=== PATIENT | female | born 1935 | race Caucasian/White ===

== ENCOUNTER 2022-09-30 12:46 | Observation (INO) | payer MEDICARE, OTHER, SELFPAY ==
[2022-09-30] VITALS (22 sets, daily range): BP systolic 145–178; BP diastolic 60–75; PULSE 52–66; RESP 4–22; TEMP 36.3–36.4; O2SAT 95–100; BMI 45.6; BMI 51.0
--- NOTE | 2022-09-30 13:17 | PC.NURSE ---
pt states has had issues with indigestion in the past and states this could be from that but unsure. States she has been under a lot of stress lately and thinks this caused the pain.
--- NOTE | 2022-09-30 13:47 | XR_ITS ---
[facility] [place] [id number] Patient Name: JAVI LEONARDO MRN: [id number] date: 1935 Sex: F Assigned Patient Location: ER Current Patient Location: ER Accession/Order Number: [id number] Exam Date: 09/30/2022 13:56 Report Date: 09/30/2022 14:12 At the request of: WILLI KIM Procedure: XR chest 1V XR chest 1V, 09/30/2022 1:56 PM EDT, OH001 INDICATION: chest pain COMPARISON: None TECHNIQUE: Frontal view of the chest obtained. FINDINGS: The heart is normal in size. The aorta and mediastinum appear unremarkable. The pulmonary vasculature is normal. The lungs are clear. There is no evidence of pneumothorax or pleural effusion. The osseous structures appear intact. XR/XR chest 1V IMPRESSION: No active pulmonary process. Electronically authenticated by: VU PADRON Date: 09/30/2022 14:12
--- NOTE | 2022-09-30 14:03 | ED_ITS ---
Documented by User: LATHA Wolf 09/30/22 16:18 HPI - Chest Pain General Chief Complaint: Chest Pain Stated Complaint: CHEST PAIN Time Seen by Provider: 09/30/22 13:35 Source: patient Mode of arrival: Wheelchair Limitations: no limitations History of Present Illness HPI narrative: patient is a 87-year-old female presents to the Emergency Room with concerns of chest pain. Patient has pertinent history of cardiac stent in two thousand nine and two thousand twelve. Patient does not recall her symptoms at that time as her had . Patient also has a [place] filter. She has a history of chronic lower leg edema and obesity. Patient states for the past 2-3 months she has had episodes of chest pressure heaviness going into her neck and jaw and right arm. Accompanied by nausea but no diaphoresis. Patient notes symptoms today started around eleven and started to improve about a half hour later. Symptoms come on at rest. She denies any vomiting or diarrhea. Patient notes she feels slightly short of breath with exertion. Patient speaking in full sentences and appears in no distress at bedside. She notes she did have a follow-up scheduled with her serology teacher but did not want to wait with symptoms becoming more frequent. MD complaint: Reports chest pain and chest heaviness Pertinent past history: Reports prior [place] Timing of current episode: Reports episodic Prior episodes: Yes Onset: Reports during rest Pain location: Reports right chest Pain radiation: Reports right arm and neck Quality: Reports heaviness and other (pressure) Relieving factors: Reports nothing Exacerbating factors: Reports nothing Associated symptoms: Reports nausea, dyspnea and leg swelling (chronic); Denies vomiting, diaphoresis, sense of impending doom or palpitations Treatment prior to arrival: Reports aspirin (81 mg) Related Data Allergies Allergy/AdvReac Type Severity Reaction Status Date / Time oxaprozin [From Daypro] Allergy Intermediate Verified 09/30/22 12:58 sertraline [From Zoloft] Allergy Intermediate Verified 09/30/22 12:58 Review of Systems ROS Constitutional Denies: fever or chills Ears, nose, mouth, and throat Denies: throat pain or neck pain Cardiovascular Reports: chest pain; Denies: palpitations Respiratory Reports: shortness of breath; Denies: cough Gastrointestinal Reports: nausea; Denies: abdominal pain or excessive passing of gas Genitourinary Denies: painful urination Musculoskeletal Reports: back pain Integumentary/Breast Denies: rash Neurological Denies: headache Psychiatric Denies: anxiety or mood swings Endocrine Denies: excessive urination Hematologic/Lymphatic Reports: other (chronic lymphadenopathy in the lower legs) Exam Narrative Exam Narrative: Nurses notes and vital signs reviewed and patient is not hypoxic. General: The patient appears well and in no apparent distress. Patient is resting comfortably on cart.speaking in full sentences Skin: Warm, dry, no pallor noted. Head: Normocephalic, atraumatic Neck: Supple, trachea mid-line, no tenderness, no lymphadenopathy Eye: Pupils are equal, round and reactive to light, EOMI Ears, Nose, Mouth, and Throat: TM are clear, normal light reflex, oral mucosa is moist, no posterior oropharynx erythema or hypertrophy, uvula is mid-line Cardiovascular: Regular Rate and Rhythm Respiratory: Patient is in no distress, no accessory muscle use, lungs are clear to auscultation, no wheezing, rales or rhonchi. Chest Wall: no tenderness, no. Pain Back: non-tender, no CVA tenderness Musculoskeletal: normal ROM, chronic lymphedematous changes in the lower legs. GI: Normal bowel sounds, no tenderness to palpation, no masses appreciated. No rebound, guarding, or rigidity noted. Neurological: A&O x4 Psychiatric: Cooperative Constitutional Vital Signs, click to edit/add: Last Vital Signs Temp 97.4 F L 09/30/22 12:50 Pulse 54 L 09/30/22 15:30 Resp 17 09/30/22 15:30 BP 178/60 H 09/30/22 15:00 Pulse Ox 100 09/30/22 15:30 O2 Del Method Room Air 09/30/22 12:50 Course Vital Signs Vital signs: Vital Signs Temperature 97.4 F L 09/30/22 12:50 Pulse Rate 65 09/30/22 12:50 Respiratory Rate 16 09/30/22 12:50 Blood Pressure 154/75 H 09/30/22 12:50 Pulse Oximetry 100 09/30/22 12:50 Oxygen Delivery Method Room Air 09/30/22 12:50 Temperature 97.4 F L 09/30/22 12:50 Pulse Rate 54 L 09/30/22 15:30 Respiratory Rate 17 09/30/22 15:30 Blood Pressure 178/60 H 09/30/22 15:00 Pulse Oximetry 100 09/30/22 15:30 Oxygen Delivery Method Room Air 09/30/22 12:50 MDM - Chest Pain MDM Narrative Medical decision making narrative: patient presents with concerning history for cardiac etiology. EKG reviewed, I did speak with LETY Tavera upon patient's arrival for potential disposition given going into a weekend. She recommends trending troponins and transferring if anything is abnormal. She was able to review her immediate cardiac history. I asked appointment with Dr. Arora in June of this year. Patient medicated with aspirin 162 mg by mouth, Nitropaste. patient notes heaviness sensation and pressure in her chest is improved with nitroglycerin paste. She appears in no distress. Her repeat troponin was also within normal limits. Discussed case with Dr. Goel at 4 PM who is agreeable to admit the patient as long as her 2nd troponin was negative. Patient will be admitted to telemetry observation stepdown, she did have one episode of bradycardia in the forty-eight but has been in the mid 50s at rest. Patient stable at this time but with concerning symptoms. Lab Data Labs: Lab Results 09/30/22 09/30/22 Range/Units 13:55 15:47 WBC 5.8 (4.0-11.0) 10^3/uL RBC 3.59 L (4.20-5.40) 10^6/uL Hgb 11.3 L (12.0-16.0) g/dL Hct 35.2 L (36.0-48.0) % MCV 98.1 (81.0-99.0) fL MCH 31.5 (26.7-34.0) pg MCHC 32.1 (29.9-35.2) g/dL RDW 12.7 (11.0-15.0) % Plt Count 171 (150-450) 10^3/uL MPV 10.4 (9.5-13.5) fL Neut % (Auto) 60.7 (43.0-75.0) % Lymph % (Auto) 27.7 (20.5-60.0) % [facility] % (Auto) 8.8 (1.7-12.0) % Eos % (Auto) 2.1 (0.9-7.0) % Baso % (Auto) 0.5 (0.2-2.0) % Neut # (Auto) 3.5 (1.4-6.5) 10^3/uL Lymph # (Auto) 1.6 (1.2-3.8) 10^3/uL [facility] # (Auto) 0.5 (0.3-0.8) 10^3/uL Eos # (Auto) 0.1 (0.0-0.7) 10^3/uL Baso # (Auto) 0.0 (0.0-0.1) 10^3/uL Abs Immat Gran (auto) 0.01 (0.00-0.03) 10^3/uL Imm/Tot Granulo (auto) 0.2 (0.0-0.5) % PT 10.3 (9.0-11.6) sec INR 0.97 APTT 27.8 (22.3-36.2) sec Sodium 132 L (136-145) mmol/L Potassium 4.9 (3.5-5.1) mmol/L Chloride 101 (98-107) mmol/L Carbon Dioxide 29.5 (21.0-32.0) mmol/L Anion Gap 6.4 BUN 26.0 H (7.0-18.0) mg/dL Creatinine 1.36 H (0.55-1.02) mg/dL Est GFR ( Amer) 45 L (>=60) Est GFR (Non-Af Amer) 37 L (>=60) BUN/Creatinine Ratio 19.1 Glucose 107 H (74-106) mg/dL Calcium 8.7 (8.5-10.1) mg/dL Total Bilirubin 0.5 (0.2-1.0) mg/dL AST 14 L (15-37) U/L ALT 10 L (14-59) U/L Alkaline Phosphatase 68 (46-116) U/L Troponin I High Sens 11.7 11.1 (4.0-51.3) pg/mL NT-Pro-B Natriuret Pep 547.0 (<=1800.0) pg/mL Total Protein 6.4 (6.4-8.2) g/dL Albumin 3.5 (3.4-5.0) g/dL Globulin 2.9 g/dL Albumin/Globulin Ratio 1.2 Lipase 15.0 L (73.0-393.0) U/L Imaging Data Chest x-ray: Radiologist's impression: Procedure: XR chest 1V XR chest 1V, 09/30/2022 1:56 PM EDT, [facility]001 INDICATION: chest pain COMPARISON: None TECHNIQUE: Frontal view of the chest obtained. FINDINGS: The heart is normal in size. The aorta and mediastinum appear unremarkable. The pulmonary vasculature is normal. The lungs are clear. There is no evidence of pneumothorax or pleural effusion. The osseous structures appear intact. IMPRESSION: No active pulmonary process. Electronically authenticated by: VU PADRON Date: 09/30/2022 14:12 ECG Data Attestation: I personally reviewed and interpreted this ECG as follows: Interpretation: EKG interpretation: Emergency Department physician interpretation, 1st degree av block 62 bpm, normal sinus rhythm,+ RBBB, no ST segment elevation. Discharge Plan Discharge Chief Complaint: Chest Pain Clinical Impression: Chest pain Patient Disposition: Admitted as Observation Time of Disposition Decision: 16:18 Condition: Good Discharge Date/Time: 09/30/22 17:21 Documented by User: Tali Mancera MD 09/30/22 17:46 HPI - Chest Pain General Chief Complaint: Chest Pain Stated Complaint: CHEST PAIN Time Seen by Provider: 09/30/22 13:35 Related Data Allergies Allergy/AdvReac Type Severity Reaction Status Date / Time oxaprozin [From Daypro] Allergy Intermediate Verified 09/30/22 12:58 sertraline [From Zoloft] Allergy Intermediate Verified 09/30/22 12:58 Exam Constitutional Vital Signs, click to edit/add: Last Vital Signs Temp 97.4 F L 09/30/22 12:50 Pulse 54 L 09/30/22 15:30 Resp 17 09/30/22 15:30 BP 178/60 H 09/30/22 15:00 Pulse Ox 100 09/30/22 15:30 O2 Del Method Room Air 09/30/22 12:50 Course Vital Signs Vital signs: Vital Signs Temperature 97.4 F L 09/30/22 12:50 Pulse Rate 65 09/30/22 12:50 Respiratory Rate 16 09/30/22 12:50 Blood Pressure 154/75 H 09/30/22 12:50 Pulse Oximetry 100 09/30/22 12:50 Oxygen Delivery Method Room Air 09/30/22 12:50 Temperature 97.4 F L 09/30/22 12:50 Pulse Rate 54 L 09/30/22 15:30 Respiratory Rate 17 09/30/22 15:30 Blood Pressure 178/60 H 09/30/22 15:00 Pulse Oximetry 100 09/30/22 15:30 Oxygen Delivery Method Room Air 09/30/22 12:50 MDM - Chest Pain MDM Narrative Medical decision making narrative: patient presents with concerning history for cardiac etiology. EKG reviewed, I did speak with LETY Tavera upon patient's arrival for potential disposition given going into a weekend. She recommends trending troponins and transferring if anything is abnormal. She was able to review her immediate cardiac history. I asked appointment with Dr. Zapata in June of this year. Patient medicated with aspirin 162 mg by mouth, Nitropaste. patient notes heaviness sensation and pressure in her chest is improved with nitroglycerin paste. She appears in no distress. Her repeat troponin was also within normal limits. Discussed case with Dr. Goel at 4 PM who is agreeable to admit the patient as long as her 2nd troponin was negative. Patient will be admitted to telemetry observation stepdown, she did have one episode of bradycardia in the forty-eight but has been in the mid 50s at rest. Patient stable at this time but with concerning symptoms. Attending physician attestation I have seen and evaluated this patient. I have reviewed the mid-level provider?s documentation medical decision making and treatment plan. I agree with the mid- level provider?s assessment, and plan. Lab Data Labs: Lab Results 09/30/22 09/30/22 Range/Units 13:55 15:47 WBC 5.8 (4.0-11.0) 10^3/uL RBC 3.59 L (4.20-5.40) 10^6/uL Hgb 11.3 L (12.0-16.0) g/dL Hct 35.2 L (36.0-48.0) % MCV 98.1 (81.0-99.0) fL MCH 31.5 (26.7-34.0) pg MCHC 32.1 (29.9-35.2) g/dL RDW 12.7 (11.0-15.0) % Plt Count 171 (150-450) 10^3/uL MPV 10.4 (9.5-13.5) fL Neut % (Auto) 60.7 (43.0-75.0) % Lymph % (Auto) 27.7 (20.5-60.0) % [facility] % (Auto) 8.8 (1.7-12.0) % Eos % (Auto) 2.1 (0.9-7.0) % Baso % (Auto) 0.5 (0.2-2.0) % Neut # (Auto) 3.5 (1.4-6.5) 10^3/uL Lymph # (Auto) 1.6 (1.2-3.8) 10^3/uL [facility] # (Auto) 0.5 (0.3-0.8) 10^3/uL Eos # (Auto) 0.1 (0.0-0.7) 10^3/uL Baso # (Auto) 0.0 (0.0-0.1) 10^3/uL Abs Immat Gran (auto) 0.01 (0.00-0.03) 10^3/uL Imm/Tot Granulo (auto) 0.2 (0.0-0.5) % PT 10.3 (9.0-11.6) sec INR 0.97 APTT 27.8 (22.3-36.2) sec Sodium 132 L (136-145) mmol/L Potassium 4.9 (3.5-5.1) mmol/L Chloride 101 (98-107) mmol/L Carbon Dioxide 29.5 (21.0-32.0) mmol/L Anion Gap 6.4 BUN 26.0 H (7.0-18.0) mg/dL Creatinine 1.36 H (0.55-1.02) mg/dL Est GFR ( Amer) 45 L (>=60) Est GFR (Non-Af Amer) 37 L (>=60) BUN/Creatinine Ratio 19.1 Glucose 107 H (74-106) mg/dL Calcium 8.7 (8.5-10.1) mg/dL Total Bilirubin 0.5 (0.2-1.0) mg/dL AST 14 L (15-37) U/L ALT 10 L (14-59) U/L Alkaline Phosphatase 68 (46-116) U/L Troponin I High Sens 11.7 11.1 (4.0-51.3) pg/mL NT-Pro-B Natriuret Pep 547.0 (<=1800.0) pg/mL Total Protein 6.4 (6.4-8.2) g/dL Albumin 3.5 (3.4-5.0) g/dL Globulin 2.9 g/dL Albumin/Globulin Ratio 1.2 Lipase 15.0 L (73.0-393.0) U/L Discharge Plan Discharge Chief Complaint: Chest Pain Clinical Impression: Chest pain Patient Disposition: Admitted as Observation Time of Disposition Decision: 16:18 Condition: Good Discharge Date/Time: 09/30/22 17:21
[2022-09-30 14:19] LABS: Basophils Percent Auto 0.5 % (0.2-2.0); Eosinophils Absolute Auto 0.1 10^3/uL (0.0-0.7); Eosinophils Percent Auto 2.1 % (0.9-7.0); Hematocrit 35.2 % (36.0-48.0); Hemoglobin 11.3 g/dL (12.0-16.0); Immature Granulocytes Abs Auto 0.01 10^3/uL (0.00-0.03); Immature Granulocytes Pct Auto 0.2 % (0.0-0.5); Lymphocytes Absolute Auto 1.6 10^3/uL (1.2-3.8); Lymphocytes Percent Auto 27.7 % (20.5-60.0); Mean Corpuscular HGB Conc 32.1 g/dL (29.9-35.2); Mean Corpuscular Hemoglobin 31.5 pg (26.7-34.0); Mean Corpuscular Volume 98.1 fL (81.0-99.0); Mean Platelet Volume 10.4 fL (9.5-13.5); Monocytes Absolute Auto 0.5 10^3/uL (0.3-0.8); Monocytes Percent Auto 8.8 % (1.7-12.0); Neutrophils Absolute Auto 3.5 10^3/uL (1.4-6.5); Neutrophils Percent Auto 60.7 % (43.0-75.0); Platelet Count 171 10^3/uL (150-450); Red Blood Count 3.59 10^6/uL (4.20-5.40); Red Cell Distribution Width 12.7 % (11.0-15.0); White Blood Count 5.8 10^3/uL (4.0-11.0)
[2022-09-30] MEDS: ASPIRIN 81 MG TAB.CHEW 162 MG PO (14:35)
[2022-09-30 14:38] LABS: INR 0.97; Partial Thromboplastin Time 27.8 sec (22.3-36.2); Prothrombin Time 10.3 sec (9.0-11.6)
[2022-09-30 14:42] LABS: Alanine Aminotransferase 10 U/L (14-59); Albumin Globulin Ratio 1.2; Albumin Level 3.5 g/dL (3.4-5.0); Alkaline Phosphatase 68 U/L (46-116); Anion Gap 6.4; Aspartate Amino Transferase 14 U/L (15-37); BUN Creatinine Ratio 19.1; Bilirubin Total 0.5 mg/dL (0.2-1.0); Calcium 8.7 mg/dL (8.5-10.1); Carbon Dioxide 29.5 mmol/L (21.0-32.0); Chloride 101 mmol/L (98-107); Estimated GFR (African America 45 (>=60); Estimated GFR (Non-African Ame 37 (>=60); Globulin 2.9 g/dL; Glucose 107 mg/dL (74-106); Potassium 4.9 mmol/L (3.5-5.1); Sodium 132 mmol/L (136-145); Total Protein 6.4 g/dL (6.4-8.2); Troponin I High Sensitivity 11.7 pg/mL (4.0-51.3)
[2022-09-30] MEDS: NITROGLYCERIN 2% 1 GRAM PACKET 1 GM TD (14:58)
[2022-09-30 16:08] LABS: Troponin I High Sensitivity 11.1 pg/mL (4.0-51.3)
[2022-09-30] MEDS: ENOXAPARIN SODIUM 40 MG/0.4 ML SYRINGE SUBQ (18:25)
[2022-09-30 19:44] LABS: Troponin I High Sensitivity 11.3 pg/mL (4.0-51.3)
[2022-10-01 00:02] VITALS: PULSE 55
[2022-10-01 02:25] VITALS: PULSE 62
[2022-10-01 04:09] VITALS: PULSE 65
[2022-10-01 04:11] VITALS: BP 127/52; PULSE 56; RESP 18; TEMP 36.6
[2022-10-01 04:30] LABS: Basophils Percent Auto 0.6 % (0.2-2.0); Eosinophils Absolute Auto 0.1 10^3/uL (0.0-0.7); Eosinophils Percent Auto 2.7 % (0.9-7.0); Hematocrit 32.2 % (36.0-48.0); Hemoglobin 10.4 g/dL (12.0-16.0); Immature Granulocytes Abs Auto 0.02 10^3/uL (0.00-0.03); Immature Granulocytes Pct Auto 0.4 % (0.0-0.5); Lymphocytes Absolute Auto 2.1 10^3/uL (1.2-3.8); Lymphocytes Percent Auto 40.3 % (20.5-60.0); Mean Corpuscular HGB Conc 32.3 g/dL (29.9-35.2); Mean Corpuscular Hemoglobin 31.7 pg (26.7-34.0); Mean Corpuscular Volume 98.2 fL (81.0-99.0); Mean Platelet Volume 10.2 fL (9.5-13.5); Monocytes Absolute Auto 0.5 10^3/uL (0.3-0.8); Monocytes Percent Auto 9.3 % (1.7-12.0); Neutrophils Absolute Auto 2.5 10^3/uL (1.4-6.5); Neutrophils Percent Auto 46.7 % (43.0-75.0); Platelet Count 149 10^3/uL (150-450); Red Blood Count 3.28 10^6/uL (4.20-5.40); Red Cell Distribution Width 12.6 % (11.0-15.0); White Blood Count 5.3 10^3/uL (4.0-11.0)
[2022-10-01 04:52] LABS: BUN Creatinine Ratio 19.2; Calcium 8.3 mg/dL (8.5-10.1); Carbon Dioxide 27.5 mmol/L (21.0-32.0); Chloride 104 mmol/L (98-107); Chol HDL Ratio 2.6; Cholesterol 127 mg/dL (<=200); Estimated GFR (African America 47 (>=60); Estimated GFR (Non-African Ame 39 (>=60); Glucose 96 mg/dL (74-106); HDL Cholesterol 48 mg/dL (40-60); Potassium 4.5 mmol/L (3.5-5.1); Sodium 138 mmol/L (136-145); Triglycerides 167 mg/dL (<=150); VLDL CHOLESTEROL 33.4 mg/dL
--- NOTE | 2022-10-01 06:04 | ECG_ITS ---
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
[2022-10-01 06:26] VITALS: PULSE 65
[2022-10-01 07:54] VITALS: PULSE 67
[2022-10-01] MEDS: ASPIRIN 81 MG TAB.CHEW 162 MG PO (08:07)
--- NOTE | 2022-10-01 08:31 | P.HP_ITS ---
H&P: HPI History of Present Illness Chief complaint: CHEST PAIN Narrative: patient is an 87-year-old female with past medical history of coronary artery disease status post stent placement in two thousand nine and two thousand and twelve. She also has a history of having a [place] filter, obesity, c hronic lower extremity edema. She reports over the last 2-3 months she has been having episodes of chest heaviness with some radiation into her right neck and jaw. She says when these symptoms, on they're usually at rest and they last for about thirty minutes and resolve. Nothing seems to make it better or worse just time. She sees her drug clerk Dr. Arora every six months and is due for an appointment soon. At the time of exam she denies any chest pain and reports overall she spills improved since her visit to the Emergency Room yesterday. She was given aspirin and nitroglycerin in the Emergency Room which did cause some bradycardia but no headaches no chest pain and overall feels improved. Patient does [facility] and functions pretty independently, she does use a walker at home and states that she lives in a small apartment with no issues. Review of Systems ROS Narrative ROS: a complete review of systems were reviewed with patient and are positive as below or listed in History of Chief Complaint. General: no fever, chills, night sweats Head: no headache, trauma, visual changes, nausea or vomiting Skin: no reported rashes, itching or sores Eyes: no blurriness of vision Ears: no reported hearing loss, vertigo, earache, or tinnitus Throat: no sore throat, hoarseness, swelling of neck, or tongue pain Heart: no chest pain Lungs: no shortness of breath or cough GI: no diarrhea or vomiting/nausea Urinary: no urinary urgency, frequency or pain Neuro: no numbness or tingling HEM: no bleeding issues or bruising ENDO: no thyroid problems Psych: no anxiety or depression [facility] Medical History (Updated 10/01/22 @ 10:55 by Bruna Veliz DO) Surgical History Family History Father Family history of stroke Family history of CHF (congestive heart failure) Family history of hypertension Mother Family history of myocardial infarction Family history of hypertension Brother Family history of myocardial infarction Family history of hypertension Daughter Family history of cancer Sister Family history of cancer Social History Within the past year, how often did you have a drink containing alcohol: never Score interpretation: A score less than 3 is consistent with normal alcohol consumption. Smoking status: Never smoker Non-prescribed substance use: denies use Meds Home Medications and Allergies Home Medications Medication Instructions Recorded Confirmed Type acetaminophen 300 mg-codeine 30 mg 1 tab PO Q6H PRN pain 09/30/22 09/30/22 History tablet atorvastatin 40 mg tablet 40 mg PO BEDTIME 09/30/22 09/30/22 History bumetanide 1 mg tablet 1 mg PO DAILY 09/30/22 09/30/22 History carvedilol 25 mg tablet 25 mg PO Q12H 09/30/22 09/30/22 History diclofenac sodium 1 % topical gel 4 g topical QID 09/30/22 09/30/22 History ergocalciferol (vitamin D2) 1,250 1,250 mcg PO QWEEK 09/30/22 09/30/22 History mcg (50,000 unit) capsule gabapentin 300 mg capsule 300 mg PO Q8H 09/30/22 09/30/22 History isosorbide mononitrate 30 mg 30 mg PO DAILY 09/30/22 09/30/22 History tablet,extended release 24 hr lisinopril 40 mg tablet 40 mg PO DAILY 09/30/22 09/30/22 History minocycline 100 mg capsule 100 mg PO DAILY 09/30/22 09/30/22 History niacin 400 mg (inositol niacinate 2 cap PO DAILY 09/30/22 09/30/22 History 500 mg) capsule (Niacin No Flush) potassium chloride 10 mEq 10 meq PO BID 09/30/22 09/30/22 History tablet,extended release ranolazine 500 mg tablet,extended 500 mg PO Q12H 09/30/22 09/30/22 History release,12 hr Allergies Allergy/AdvReac Type Severity Reaction Status Date / Time oxaprozin [From Daypro] Allergy Intermediate Verified 09/30/22 12:58 sertraline [From Zoloft] Allergy Intermediate Verified 09/30/22 12:58 Exam Narrative Exam Narrative: General: Patient is alert, and oriented to person, place and time with normal affect, proper hygiene, morbid obesity Skin: no visible rashes, or ulcers Head: atraumatic, acephalic Eyes: PERRLA, no nystagmus present, conjunctiva clear, no scleral icterus Ears: normal Tympanic Membrane, normal gross auditory acuity Nose: symmetric, no discharge, no maxillary or frontal sinus tenderness Mouth/Throat: no erythema, exudate, or tonsillar enlargement, normal dentition Neck: no masses palpated, normal thyroid, no JVD or audible carotid bruits Heart: Normal rate and rhythm, no murmurs/rubs/gallops Lungs: no audible wheezes, crackles and normal breath sounds all lung mckenna Abdomen: Normal audible bowel sounds, no distension, No palpable masses, no organomegaly, no rebound/guarding/ or rigidity Musculoskeletal: muscle atrophy noted, ROM is limited due to being in hospital bed, no swelling bilateral lower extremities Vascular: Normal carotid, radial, femoral, posterior tibial, and dorsalis pedis pulses Lymph: no supraclavicular, axillary, or anterior/posterior cervical adenopathy Neuro: CN II-X grossly intact, normal sensation upper and lower extremities Constitutional Vital Signs, click to edit/add: Last Vital Signs Temp 97.8 F 10/01/22 04:11 Pulse 67 10/01/22 07:54 Resp 18 10/01/22 04:11 BP 127/52 10/01/22 04:11 Pulse Ox 95 09/30/22 19:35 O2 Del Method Room Air 10/01/22 04:11 Results Labs Labs: Short CBC 09/30/22 10/01/22 Range/Units 13:55 04:11 WBC 5.8 5.3 (4.0-11.0) 10^3/uL Hgb 11.3 L 10.4 L (12.0-16.0) g/dL Hct 35.2 L 32.2 L (36.0-48.0) % Plt Count 171 149 L (150-450) 10^3/uL BMP 09/30/22 10/01/22 13:55 04:11 Sodium 132 L 138 Potassium 4.9 4.5 Chloride 101 104 Carbon Dioxide 29.5 27.5 BUN 26.0 H 25.0 H Creatinine 1.36 H 1.30 H Glucose 107 H 96 Calcium 8.7 8.3 L Liver Function 09/30/22 Range/Units 13:55 Total Bilirubin 0.5 (0.2-1.0) mg/dL AST 14 L (15-37) U/L ALT 10 L (14-59) U/L Alkaline Phosphatase 68 (46-116) U/L Albumin 3.5 (3.4-5.0) g/dL Assessment and Plan Assessment and Plan (1) Chest pain: Assessment and Plan: troponins ?5 have been within normal range, no events on telemetry, EKG was unremarkable. Patient's chest pain has resolved could be GERD or could be angina, I do recommend that patient has a close follow-up with her drug clerk in 1-2 weeks with discussion on heart catheter versus stress test given her history and risk factors. Normal cholesterol panel. Cardiology consult and echocardiograms and stress tests are not performed at this hospital on the weekends (2) Hyperlipidemia: Assessment and Plan: lipid panel within normal range continue atorvastatin (3) Hypertension: Assessment and Plan: continue home Bumex, Coreg, lisinopril (4) [facility] filter in place: (5) CAD, multiple vessel: Assessment and Plan: close follow-up with cardiology, continue statin and Ranexa therapy. Plan patient is a full code Continue Lovenox for deep vein thrombosis prophylaxis observation status and is not expected to stay more than two midnights
[2022-10-01] MEDS: BUMETANIDE 1 MG TABLET PO (09:23)
[2022-10-01] MEDS: ISOSORBIDE MONONITRATE 30 MG TAB.ER.24H PO (09:23)
[2022-10-01] MEDS: LISINOPRIL 20 MG TABLET 40 MG PO (09:23)
[2022-10-01] MEDS: CARVEDILOL 25 MG TABLET PO (09:23)
[2022-10-01] MEDS: POTASSIUM CHLORIDE 10 MEQ ER TABLET PO (09:23)
--- NOTE | 2022-10-01 11:02 | PM.DS1 ---
DS: Providers Provider Date of admission: 09/30/22 17:21 Primary care physician: Non-Staff Physician, Admitting clinician: Ethan Goel Discharging clinician: Bruna Veliz DS: Diagnosis Discharge Diagnosis (1) Chest pain: (2) Hyperlipidemia: (3) Hypertension: (4) [facility] filter in place: (5) CAD, multiple vessel: DS: Summary Hospital Course Hospital Course: patient was admitted to the hospital overnight where troponins were trended and all were normal, normal fasting lipid profile, no events on telemetry. Cardiology consult, echocardiogram and stress test are not able to be performed at this hospital over the weekend. Discussion with patient to have her close outpatient follow-up with her swatch checker for discussions of all the above. Patient will be discharged home today chest pain-free and is to resume all home medications with no change. Return to the Emergency Room with any other concerns or worsening symptoms. Time Spent with Patient Time attestation: Total time spent providing and/or coordinating discharge services: Exam Narrative Exam Narrative: please see history and physical dated today there is no change in physical exam Constitutional Vital Signs, click to edit/add: Last Vital Signs Temp 97.8 F 10/01/22 04:11 Pulse 67 10/01/22 07:54 Resp 18 10/01/22 04:11 BP 127/52 10/01/22 04:11 Pulse Ox 95 09/30/22 19:35 O2 Del Method Room Air 10/01/22 04:11 DS: Data Data Completed and Pending Labs on day of discharge: Labs from last 24 hours 10/01/22 09/30/22 09/30/22 04:11 19:21 15:47 WBC 5.3 RBC 3.28 L Hgb 10.4 L Hct 32.2 L MCV 98.2 MCH 31.7 MCHC 32.3 RDW 12.6 Plt Count 149 L MPV 10.2 Neut % (Auto) 46.7 Lymph % (Auto) 40.3 [place] % (Auto) 9.3 Eos % (Auto) 2.7 Baso % (Auto) 0.6 Neut # (Auto) 2.5 Lymph # (Auto) 2.1 [place] # (Auto) 0.5 Eos # (Auto) 0.1 Baso # (Auto) 0.0 Abs Immat Gran (auto) 0.02 Imm/Tot Granulo (auto) 0.4 PT INR APTT Sodium 138 Potassium 4.5 Chloride 104 Carbon Dioxide 27.5 Anion Gap 11.0 BUN 25.0 H Creatinine 1.30 H Est GFR ( Amer) 47 L Est GFR (Non-Af Amer) 39 L BUN/Creatinine Ratio 19.2 Glucose 96 Calcium 8.3 L Total Bilirubin AST ALT Alkaline Phosphatase Troponin I High Sens 14.0 11.3 11.1 NT-Pro-B Natriuret Pep Total Protein Albumin Globulin Albumin/Globulin Ratio Triglycerides 167 H Cholesterol 127 LDL Cholesterol, Calc 46.0 VLDL Cholesterol 33.4 HDL Cholesterol 48 Cholesterol/HDL Ratio 2.6 Lipase 09/30/22 13:55 WBC 5.8 RBC 3.59 L Hgb 11.3 L Hct 35.2 L MCV 98.1 MCH 31.5 MCHC 32.1 RDW 12.7 Plt Count 171 MPV 10.4 Neut % (Auto) 60.7 Lymph % (Auto) 27.7 [place] % (Auto) 8.8 Eos % (Auto) 2.1 Baso % (Auto) 0.5 Neut # (Auto) 3.5 Lymph # (Auto) 1.6 [place] # (Auto) 0.5 Eos # (Auto) 0.1 Baso # (Auto) 0.0 Abs Immat Gran (auto) 0.01 Imm/Tot Granulo (auto) 0.2 PT 10.3 INR 0.97 APTT 27.8 Sodium 132 L Potassium 4.9 Chloride 101 Carbon Dioxide 29.5 Anion Gap 6.4 BUN 26.0 H Creatinine 1.36 H Est GFR ( Amer) 45 L Est GFR (Non-Af Amer) 37 L BUN/Creatinine Ratio 19.1 Glucose 107 H Calcium 8.7 Total Bilirubin 0.5 AST 14 L ALT 10 L Alkaline Phosphatase 68 Troponin I High Sens 11.7 NT-Pro-B Natriuret Pep 547.0 Total Protein 6.4 Albumin 3.5 Globulin 2.9 Albumin/Globulin Ratio 1.2 Triglycerides Cholesterol LDL Cholesterol, Calc VLDL Cholesterol HDL Cholesterol Cholesterol/HDL Ratio Lipase 15.0 L Discharge Plan Discharge Disposition: Home, Self-Care Condition: Good Discharge Medications: Continued acetaminophen-codeine 300-30 mg tablet 1 tab PO Q6H PRN (Reason: pain) atorvastatin 40 mg tablet 40 mg PO BEDTIME bumetanide 1 mg tablet 1 mg PO DAILY carvedilol 25 mg tablet 25 mg PO Q12H diclofenac sodium 1 % gel 4 g TOPICAL QID isosorbide mononitrate 30 mg tablet extended release 24 hr 30 mg PO DAILY lisinopril 40 mg tablet 40 mg PO DAILY niacin (inositol niacinate) [Niacin No Flush] 400 mg niacin (500 mg) capsule 2 cap PO DAILY potassium chloride 10 mEq tablet extended release 10 meq PO BID ranolazine 500 mg tablet extended release 12 hr 500 mg PO Q12H minocycline 100 mg capsule 100 mg PO DAILY gabapentin 300 mg capsule 300 mg PO Q8H ergocalciferol (vitamin D2) 1,250 mcg (50,000 unit) capsule 1,250 mcg PO QWEEK Activity: ambulate only with your walker and resume usual activities as tolerated Diet: advance to your usual diet Forms: Portal Instructions Follow Up Appointments: please follow up with Roller Skates Assembler, Dr. Arora 1-2 weeks after discharge for discussion on stress test/echo/cath
--- NOTE | 2022-10-03 15:28 | CM.DCFOLLOWU ---
Person spoke with: patient How are you feeling? had some chest pain last night and into this morning that lasted about 25 minutes How is your pain? no pain right now Did you understand your discharge instructions? yes Do you have any questions about your discharge instructions? no Were you given any prescriptions at discharge? no Were you able to get your prescriptions filled? no prescriptions Do you understand how to take your medications as ordered? yes Do you have any questions about your follow up appointment and do you plan to keep your follow up appointment? follow up October 26 with cardiology and follow up with PCP on October 12 Is there anything else that you would like to discuss? no Questions/Comments/Concerns/Other:
== END 2022-10-01 11:25 | disposition home or self-care (01) ==
LOC: ER 16:18 → MS 17:29
PROVIDERS: Family Medicine; Personal Emergency Response Attendant; Admitting Provider Family Medicine; Emergency Provider Emergency Medicine; Visit Provider Family Medicine
DX: R07.9 Chest pain, unspecified (principal); E78.5 Hyperlipidemia, unspecified; I25.10 Atherosclerotic heart disease of native coronary artery without angina pectoris; I10 Essential (primary) hypertension; E66.9 Obesity, unspecified; R60.0 Localized edema; R06.02 Shortness of breath; Z95.5 Presence of coronary angioplasty implant and graft; Z95.828 Presence of other vascular implants and grafts; Z79.899 Other long term (current) drug therapy; Z68.43 Body mass index [BMI] 50.0-59.9, adult
CPT/HCPCS: 36415; 71045; 80048; 80053; 80061; 83690; 83880; 84484; 85025; 85610; 85730; 93005; 96372; 99285; G0378

== ENCOUNTER 2022-11-11 09:55 | Outpatient (OUT) | payer MEDICARE, OTHER, SELFPAY ==
--- NOTE | 2022-11-11 10:52 | CA_ITS ---
Patient: JAVI LEONARDO Exam Date: 11/11/2022 : 1935 Gender:F Ordering : DR KESHA KING M.D. Admission #: [id number] Family : DR CHET LUI M.D. Order #: [id number] CLICK HERE TO VIEW EXAM ECHOCARDIOGRAM REPORT PROCEDURE: CA ECHO DOPPLER COMPLETE INDICATIONS: Diastolic heart failure, PTCAx2, [place], h/o rheumatic fever, hypertension COMPARISON: None. DESCRIPTION: COMPLETE ECHOCARDIOGRAM Real-time transthoracic echocardiography with 2D, M-mode, spectral and color flow Doppler performed. QUALITY: Technical quality was good. LEFT VENTRICLE: Normal chamber size. Thickened septal wall. LV EF: Global left ventricular systolic function is normal; visually estimated ejection fraction is 60 to 65%. Unable to fully assess regional wall motion abnormality; no obvious abnormality seen. DIASTOLIC: Grade II diastolic dysfunction. ATRIAL SEPTUM: Visually appears intact. LEFT ATRIUM: Normal chamber size. RIGHT ATRIUM: Normal chamber size. RIGHT VENTRICLE: Normal chamber size. Normal right ventricular systolic function. TRICUSPID VALVE: Normal mobility and thickness. Moderate regurgitation. Doppler studies reveal severely (>60) elevated right sided pressures. RVSP 68 mmHg MITRAL VALVE: Poorly seen; appears restricted in motion. Unable to assess degree of mitral stenosis. There is no mitral annular calcification. Mild mitral regurgitation. AORTIC VALVE: Normal trileaflet appearance. Mildly calcified aortic valve. Doppler velocity suggests mild aortic valve stenosis. DVI 0.4, SHILA 1.7 cm2. Trivial aortic regurgitation. AORTIC ROOT: Normal diameter and appearance. PULMONIC VALVE: Not well visualized. No stenosis. No regurgitation. PERICARDIUM: No evidence of pericardial effusion. IVC: IVC is dilated (2.2 cm) and does not fully collapse. CONCLUSION: 1. Global left ventricular systolic function is normal; visually estimated ejection fraction is 60 to 65% 2. The right ventricle is normal in size and systolic function 3. Grade 2, moderate diastolic dysfunction 4. Moderate tricuspid regurgitation 5. Severely elevated right ventricular systolic pressure; RVSP 68 mmHg 6. The mitral valve is poorly seen; mild mitral regurgitation 7. Mild aortic valve stenosis Adult Echocardiography Procedure Report Left Ventricle LVEDD (3.7 - 5.6 cm): 4.20 cm LVESD (2.2 - 4.0 cm): 2.66 cm LVIVS thickness (0.6 - 1.2 cm): 1.38 cm LVPW thickness (0.5 - 1.0 cm): 1.06 cm e': 0.08 m/s E - e': 17.27 LVOT Max Gradient: 2.88 mm[Hg] LVOT Area (cm2): 0.85 m/s Peak Velocity (LVOT): 0.85 m/s Mean Velocity (LVOT): 0.59 m/s LVOT Diameter 2.20 cm Left Atrium LA Volume Index (2D A2C): 30.24 ml/m2 Left Atrium Systolic Dimension: 4.65 cm Mitral Valve MV E to A Ratio: 1.12 Mitral Valve A-Wave Peak Velocity: 1.27 m/s Mitral Valve E-Wave Peak Velocity: 1.42 m/s Right Ventricle Aorta AO Root Diam: 3.53 cm Ascending Ao Diam: 3.13 cm Aortic Valve AoV Area (Peak Haile): 1.53 cm2, 1.59 cm2 AoV Area (VTI): 1.70 cm2, 1.70 cm2 Peak Velocity(Antegrade Flow): 2.02 m/s, 2.09 m/s Peak Gradient(Antegrade Flow): 16.26 mm[Hg], 17.50 mm[Hg] Mean Velocity(Antegrade Flow): 1.42 m/s, 1.49 m/s Mean Gradient(Antegrade Flow): 9.12 mm[Hg], 10.09 mm[Hg] Velocity Time Integral: 58.53 cm, 52.58 cm Tricuspid Valve Peak Velocity (Regurgitant Flow): 3.74 m/s Pulmonic Valve Peak Velocity: 0.93 m/s Peak Gradient: 3.49 mm[Hg] Right Atrium Right Atrium Systolic Pressure: 52.89 ml, 52.89 ml Dictated by: Kesha King M.D. on 11/11/2022 at 16:59 Approved by: Kesha King M.D. on 11/11/2022 at 17:06
== END 2022-11-11 09:56 | disposition home or self-care (01) ==
LOC: CARD 09:57
PROVIDERS: PCP Internal Medicine; Visit Provider Internal Medicine Interventional Cardiology
DX: I50.32 Chronic diastolic (congestive) heart failure (principal); I08.3 Combined rheumatic disorders of mitral, aortic and tricuspid valves
CPT/HCPCS: 93306

== ENCOUNTER 2023-11-15 08:13 | Outpatient (OUT) | payer MEDICARE, OTHER, SELFPAY ==
--- NOTE | 2023-11-15 10:00 | CA_ITS ---
Patient Name: JAVI LEONARDO MR#: [id number] : 1935 Exam Date: 11/15/2023 Ordering Doctor: DR Valeriano King M.D. ECHOCARDIOGRAM REPORT PROCEDURE: CA ECHO DOPPLER COMPLETE INDICATIONS: Aortic valve disease, [place], cardiac stent, hypertension, h/o rheumatic fever COMPARISON: None. DESCRIPTION: COMPLETE ECHOCARDIOGRAM Real-time transthoracic echocardiography with 2D, M-mode, spectral and color flow Doppler performed. QUALITY: Technical quality was good. LEFT VENTRICLE: Normal chamber size. Moderate concentric left ventricular hypertrophy. LV EF: Global left ventricular systolic function is normal; visually estimated ejection fraction is 55 to 60%. No significant wall motion abnormalities. DIASTOLIC: Not adequately assessed due to heart rhythm. ATRIAL SEPTUM: Visually appears intact. LEFT ATRIUM: Mild dilatation. RIGHT ATRIUM: Normal chamber size. RIGHT VENTRICLE: Normal chamber size. Normal right ventricular systolic function. TRICUSPID VALVE: Normal mobility and thickness. Moderate regurgitation. Doppler studies reveal moderately (45-60) elevated right sided pressures. RVSP 58 mmHg MITRAL VALVE: Mildly thickened with normal mobility. No evidence of mitral valve stenosis. Mild mitral annular calcification. Moderate mitral regurgitation. AORTIC VALVE: Normal trileaflet appearance. Mildly calcified aortic valve. Mildly diminished mobility. Doppler velocity suggests mild aortic valve stenosis. DVI 0.4, SHILA 1.7 cm2. Trivial aortic regurgitation. AORTIC ROOT: Normal diameter and appearance. Ascending aorta is normal in size. PULMONIC VALVE: Not well visualized. No regurgitation. PERICARDIUM: No evidence of pericardial effusion. IVC: IVC is dilated (2.5 cm) with no collapse. CONCLUSION: 1. Global left ventricular systolic function is normal; visually estimated ejection fraction is 55 to 60% 2. Moderate left ventricular hypertrophy 3. Normal right ventricular size and systolic function 4. The left atrium is mildly dilated 5. Moderate tricuspid regurgitation 6. Moderately elevated right ventricular systolic pressure; RVSP 58 mmHg 7. Moderate mitral regurgitation 8. Mild aortic valve stenosis Adult Echocardiography Procedure Report Left Ventricle LVEDD (3.7 - 5.6 cm): 3.79 cm LVESD (2.2 - 4.0 cm): 3.17 cm LVIVS thickness (0.6 - 1.2 cm): 1.36 cm LVPW thickness (0.5 - 1.0 cm): 1.36 cm LVOT Max Gradient: 3.18 mm[Hg], 2.83 mm[Hg], 3.04 mm[Hg] LVOT Area (cm2): 0.87 m/s Peak Velocity (LVOT): 0.89 m/s, 0.84 m/s, 0.87 m/s Mean Velocity (LVOT): 0.62 m/s LVOT Diameter 2.36 cm Left Atrium LA Volume Index (2D A2C): 41.16 ml/m2 Left Atrium Systolic Dimension: 4.80 cm Mitral Valve Mitral Valve E-Wave Peak Velocity: 1.54 m/s Right Ventricle Aorta AO Root Diam: 3.58 cm Ascending Ao Diam: 3.16 cm Aortic Valve AoV Area (Peak Haile): 1.76 cm2, 1.72 cm2, 1.80 cm2 AoV Area (VTI): 1.73 cm2, 1.74 cm2, 1.82 cm2 Peak Velocity(Antegrade Flow): 2.27 m/s, 2.04 m/s Peak Gradient(Antegrade Flow): 20.53 mm[Hg], 16.65 mm[Hg] Mean Velocity(Antegrade Flow): 1.50 m/s, 1.38 m/s Mean Gradient(Antegrade Flow): 10.58 mm[Hg], 8.90 mm[Hg] Velocity Time Integral: 51.56 cm, 42.08 cm Tricuspid Valve Peak Velocity (Regurgitant Flow): 3.30 m/s, 2.99 m/s Pulmonic Valve Peak Velocity: 0.89 m/s Peak Gradient: 3.14 mm[Hg] Right Atrium Right Atrium Systolic Pressure: 34.54 ml, 34.54 ml Dictated by: Valeriano King M.D. on 11/15/2023 at 17:30 Approved by: Valeriano King M.D. on 11/15/2023 at 17:33
== END 2023-11-15 08:14 | disposition home or self-care (01) ==
LOC: CARD 08:13
PROVIDERS: PCP Internal Medicine; Visit Provider Internal Medicine Interventional Cardiology
DX: I35.0 Nonrheumatic aortic (valve) stenosis (principal)
CPT/HCPCS: 93306

== ENCOUNTER 2025-01-08 10:31 | Outpatient (OUT) | payer MEDICARE, OTHER, SELFPAY ==
--- OUTSIDE RECORDS SUMMARY | 2024-12-25 10:15 | XMS_ITS | Encounter Summary ---
Author Organization [facility] Address [address] [place] [address] Care Team Providers Care Tankerman Name Role Phone Edmund Torres MD Primary Care Provider [phone] Reason for Referral * Imaging (Routine) - Pending ReviewSpecialtyDiagnoses / ProceduresReferred By ContactReferred To ContactCardiology Diagnoses MELENDEZ (dyspnea on exertion) Procedures Transthoracic echo (TTE) complete Valeriano King MD [address] [place] [address] Phone: tel: fax: Referral IDStatusReasonStart DateExpiration DateVisits RequestedVisits [id number] Review Perform Procedure 51 Encounter Details DateTypeDepartmentCare Team (Latest Contact Info)Ruzsphwfoax85/19/2025 10:15 AM ESTOffice Visit [facility] [place] [address] [place] [address] Valeriano King MD [address] [place] [address] MELENDEZ (dyspnea on exertion) (Primary Dx); Benign hypertensive heart disease with heart failure (CMS/HCC) Social History Tobacco UseTypesPacks/DayYears UsedDateSmoking Tobacco: NeverSmokeless Tobacco: NeverAlcohol UseStandard Drinks/WeekCommentsNot Currently0 (1 standard drink = 0.6 oz pure alcohol)UT Safety & EnvironmentAnswerDate RecordedFear of Current or Ex-PartnerNot on file03/30/2023Emotionally AbusedNot on file03/30/2023hysically AbusedNot on file03/30/2023Sexually AbusedNot on file03/30/2023hysically or Sexually AbusedNot on file03/30/2023CommentsUnknownSex and Gender InformationValueDate RecordedSex Assigned at BurnwQtwejb21/17/2025 11:44 AM EST Legal OplOfwyfe00/29/2022 9:53 PM EDTGender BszxhbblMicjcz97/17/2025 11:44 AM ESTSexual OrientationHeterosexual or Jgkaivin88/17/2025 11:44 AM ESTdocumented as of this encounter Last Filed Vital Signs Vital SignReadingTime TakenCommentsBlood Lgskugey833/5712/25/2024 9:57 AM EST Mbsyg694312/25/2024 9:57 AM ESTTemperature--Respiratory Rate--Oxygen Bjlxgttxxn55% 12/25/2024 9:57 AM ESTInhaled Oxygen Concentration--Qcctxk785 kg (285 lb) 12/25/2024 9:57 AM VWPDlaffz517.5 cm (5' 2 )12/25/2024 9:57 AM ESTBody Mass Index52.13102/25/2024 9:57 AM ESTdocumented in this encounter Progress Notes * Valeriano King MD - 12/25/2024 10:15 AM EST Images from the original note were not included. [facility] Cardiology Clinic Note Chief Complaint: Patient here for a 1 year follow up appointment. Patient states she guess she feels ok for her. Patient denies chest pain, racing heart/palpitations, abnormal bleeding/bruising. Patient complains of SOB/MELENDEZ, fatigue, occasional dizziness/lightheaded usually happens when she's been up and about, it comes when she is trying to get her breath back. Leg swelling/pain HPI: Sheyla Serra is a 89 y.o. female With coronary artery disease, hypertension, HFpEF She is doing well; she has no new symptoms from a CV standpoint Her primary care provider started her on Cymbalta for anxiety/depression. She has a lot of stress in life. I was saddened to hear one of her children is fighting cancer and has brain mets. She had 4 children; one of them of pancreatic cancer. She currently has 3 all of them live in the area. UPDATE 12/25/2024 She has been having slowly progressive worsening shortness of breath over the past several months. She sleeps on a recliner due to difficulty laying flat. She has no paroxysmal nocturnal dyspnea. Shehas chronic lower extremity edema. She denies chest pain. She has had no significant lightheadedness, dizziness, or syncope Cardiology ROS: Review of Systems Constitutional: Positive for malaise/fatigue. Cardiovascular: Positive for dyspnea on exertion (worsening at times ) and leg swelling (usually resolves by morning). Respiratory: Positive for shortness of breath. Musculoskeletal: Positive for falls and muscle weakness. Neurological: Positive for dizziness and light-headedness. All other systems reviewed and are negative. Past Medical History She has a past medical history of CHF (congestive heart failure) (CMS/[facility]), Coronary artery disease, Heart valve disease, Hyperlipidemia, and Hypertension. Surgical History She has a past surgical history that includes Cardiac catheterization. Social History She reports that she has never smoked. She has never used smokeless tobacco. She reports that she does not currently use alcohol. No history on file for drug use. Family History Family History Problem Relation Name Age of Onset Coronary artery disease Other Allergies Levonorgestrel-ethinyl estrad, Octacosanol, Oxaprozin, and Sertraline Medications Current Outpatient Medications: acetaminophen-codeine (Tylenol w/ Codeine #3) 300-30 mg tablet, Take 300 tablets by mouth every 6 (six) hours if needed., Disp: , Rfl: aspirin 81 mg EC tablet, Take 81 mg by mouth in the morning., Disp: , Rfl: atorvastatin (Lipitor) 40 mg tablet, TAKE 1 TABLET BY MOUTH AT BEDTIME, Disp: 90 tablet, Rfl: 3 bumetanide (Bumex) 1 mg tablet, Take 1 tablet (1 mg) by mouth in the morning., Disp: 90 tablet, Rfl: 3 carvedilol (Coreg) 25 mg tablet, Take 1 tablet (25 mg) by mouth every 12 (twelve) hours., Disp: 180tablet, Rfl: 3 cholecalciferol (Vitamin D-3) 125 MCG (5000 UT) capsule, Take 5,000 Units by mouth in the morning.,Disp: , Rfl: dapagliflozin propanediol (Farxiga) 10 mg, TAKE 1 TABLET BY MOUTH ONCE DAILY DIRECTED, Disp: 90 tablet, Rfl: 0 diclofenac (Voltaren) 1 % topical gel, Apply topically if needed in the morning, at noon, in the evening, and at bedtime for pain., Disp: , Rfl: DULoxetine (Cymbalta) [address] capsule, Take 30 mg by mouth in the morning., Disp: , Rfl: gabapentin (Neurontin) 300 mg capsule, Take 300 mg by mouth in the morning, at noon, and at bedtime., Disp: , Rfl: isosorbide mononitrate ER (Imdur) 30 mg 24 hr tablet, Take 1 tablet (30 mg) by mouth in the morning. Do not crush or chew., Disp: 90 tablet, Rfl: 3 lisinopril 40 mg tablet, Take 1 tablet (40 mg) by mouth in the morning., Disp: 90 tablet, Rfl: 1 minocycline 100 mg capsule, Take 100 capsules by mouth in the morning., Disp: , Rfl: niacin, inositol niacinate, 400 mg niacin (500 mg) capsule, Take 400 mg by mouth 1 (one) time each day., Disp: , Rfl: pantoprazole (ProtoNix) 40 mg EC tablet, TAKE 1 TABLET BY MOUTH BEFORE BREAKFAST (DO NOT CRUSH, CHEW, OR SPLIT), Disp: 90 tablet, Rfl: 3 potassium chloride CR (Klor-Con) 10 mEq ER tablet, TAKE 1 TABLET BY MOUTH TWICE DAILY, Disp: 180 tablet, Rfl: 3 ranolazine (Ranexa) 500 mg 12 hr tablet, TAKE 1 TABLET(500 MG) BY MOUTH IN THE MORNING AND AT BEDTIME, Disp: 180 tablet, Rfl: 3 Last Recorded Vitals BP 110/57 (BP Location: Left wrist, Patient Position: Sitting) Pulse 57 Ht 1.575 m (5' 2 ) Wt129 kg (285 lb) SpO2 93% BMI 52.13 kg/m?? Physical Examination: GENERAL: alert and oriented x3, well developed, in no acute distress. HEAD: atraumatic, normocephalic. EYES: [place], EOMI. NECK: trachea midline, no JVD present, no carotid bruits present. CARDIAC: S1, S2 present. RRR. No murmur, rubs, or gallops. RESPIRATORY: CTAB, no increased effort of breathing, no rales, rhonchi, or wheezing. ABDOMEN: soft, nontender, nondistended. EXTREMITIES: no lower extremity edema, peripheral pulses are 2+ bilaterally. No rash/skin discoloration present. NEURO: strength/sensation equal and symmetric in bilateral upper and lower extremities. PSYCH: appropriate mood, affect, and judgement. Echocardiogram 11/2022: Global left ventricular systolic function is normal; EF 60 to 65%. Normal right ventricular size and systolic function. Grade 2, moderate diastolic dysfunction. Moderate tricuspid regurgitation. RVSP68 mmHg. Mild mitral regurgitation. Mild aortic valve stenosis. Echocardiogram 11/2023: Global left ventricular systolic function is normal; visually estimated ejection fraction is 55 to 60% Moderate left ventricular hypertrophy Normal right ventricular size and systolic function The left atrium is mildly dilated Moderate tricuspid regurgitation Moderately elevated right ventricular systolic pressure; RVSP 58 mmHg Moderate mitral regurgitation Mild aortic valve stenosis Labs; cholesterol 135, HDL 58, triglycerides 136, LDL 55 Cardiac catheterization 06/18/2014: Final impressions: Occluded distal left circumflex coronary artery with failed prior attempt at chronic total occlusion intervention Moderate disease of the left anterior descending coronary artery Mild to moderate disease of the right coronary artery Mildly reduced global left ventricular systolic function by noninvasive imaging Aborted left radial access given inability to pass the wire Assessment: Coronary atherosclerosis - moderate to severe 3V CAD 2014 Hypertension with LVH Heart failure with preserved ejection fraction (HFpEF) Moderate tricuspid regurgitation Moderately elevated right ventricular systolic pressure Mild aortic valve stenosis Mild-moderate mitral regurgitation Dyslipidemia Morbid obesity CKD s.cr 1.24 Plan: Continue guideline directed medical therapy for coronary artery disease including aspirin, moderateintensity statin therapy, a beta-jayda and an angiotensin-converting enzyme inhibitor Given her HFpEF, vascular disease, hypertension and morbid obesity, I recommended initiation of a GLP-1 receptor agonist. She can discuss this with her family physician. Continue an SGLT2 inhibitor in the form of Farxiga. Will check a BMP. Continue Ranexa Will need serial monitoring for her valvular heart disease and elevated right- sided filling pressures; will repeat an echocardiogram Given the worsening shortness of breath, the known moderate to severe three- vessel coronary artery disease, and the duration of time since her last stress test, we will schedule her for a Lexiscan stress test. We discussed the options if this returns as as no abnormal including a possible cardiac catheterization She is to continue to weigh herself daily; if she notices an increase in weight by 3 pounds or moreshe is to take an extra dose of her Bumex Return to clinic in 6 months or sooner should problems arise Valeriano King MD, MPH, [facility], [facility], [facility] Interventional Cardiology Pager Email: [email or web address] documented in this encounter Plan of Treatment NameTypePriorityAssociated DiagnosesOrder ScheduleTransthoracic echo (TTE) completeEchocardiographyRoutine MELENDEZ (dyspnea on exertion) Expected: 12/25/2024 (Approximate), Expires: 12/25/2026Lexiscan Stress Myocardial Perfusion ImagingCardiac ServicesRoutine MELENDEZ (dyspnea on exertion) Expected: 12/25/2024 (Approximate), Expires: 12/25/2026asic metabolic panelLab Routine Benign hypertensive heart disease with heart failure (CMS/HCC) Expected: 12/25/2024 (Approximate), Expires: 12/25/2025documented as of this encounter Visit Diagnoses Diagnosis MELENDEZ (dyspnea on exertion)- Primary Other dyspnea and respiratory abnormality Benign hypertensive heart disease with heart failure (CMS/HCC) documented in this encounter Care Teams Team MemberRelationshipSpecialtyStart DateEnd Date Edmund Torres MD [address] [facility] [address] [place] [address] PCP - General06/21/22documented as of this encounter
--- OUTSIDE RECORDS SUMMARY | 2025-01-08 10:34 | XMS_ITS | Clinical Summary ---
Author Organization [facility] Healthcare Address [address] [place] [address] Care Team Providers Care Tobacco Sizer Name Role Phone Edmund Torres MD Unavailable [phone] Edmund Torres MD Primary Care Provider [phone] Concha Whitley LPN Unavailable Allergies Active AllergyReactionsCriticalityNoted DateCommentsLevonorgestrel-Ethinyl OsuvglRvbtfd60/29/2017 Other reaction(s): Other (See Comments) WATERY ITCHY EYES, RUNNY NOSE TncywzinhkzXtbkeqtZjgctr20/29/2017 WATERY ITCHY EYES, RUNNY NOSE LzaywmttePjnzmho21/31/9365RyfevoiraoRvzomca65/31/2023 Medications MedicationSigDispense QuantityRefillsLast FilledStart DateEnd DateStatus atorvastatin (Lipitor) 40 MG tablet Take 40 mg by mouth in the morning.Active bumetanide (Bumex) 1 MG tablet Take 1 mg by mouth in the morning.Active potassium chloride CR (Klor-Con) 10 MEQ ER tablet Take 10 mEq by mouth every 12 (twelve) hours.Active ranolazine (Ranexa) 500 MG 12 hr tablet Indications:Coronary artery disease involving chitina coronary artery of chitina heart with angina pectorisTAKE 1 TABLET BY MOUTH TWICE A DAY 180 tablet ctive isosorbide mononitrate ER (Imdur) 30 MG 24 hr tablet Indications:Benign essential hypertensionTake 1 tablet (30 mg) by mouth in the morning. 100 tablet 302/05/2024Active pantoprazole (ProtoNix) 40 MG EC tablet Take 40 mg by mouth in the morning. Take before meals. Do not crush, chew, or split..Active minocycline (Dynacin) 100 MG tablet Take 100 mg by mouth in the morning and 100 mg before bedtime.Active gabapentin (Neurontin) 300 MG capsule Take 300 mg by mouth in the morning and 300 mg in the evening and 300 mg before bedtime.Active cholecalciferol 125 MCG (5000 UT) capsule Take 5,000 Units by mouth DailyActive dapagliflozin (Farxiga) 10 MG Take 10 mg by mouth Daily5Active carvedilol (Coreg) 25 MG tablet Indications:Benign essential hypertension,Chronic diastolic heart failure (HCC) TAKE 1 TABLET BY MOUTH IN THE MORNING AND 1 TABLET BY MOUTH BEFORE BEDTIME 180 tablet 5Active Niacin-Inositol (No Flush Niacin) 400-100 MG capsule Indications:Mixed hyperlipidemiaTake 1 capsule by mouth Daily 90 capsule 308/6Active lisinopril 40 MG tablet Indications:Benign essential hypertensionTAKE 1 TABLET BY MOUTH IN THE MORNING 90 tablet 3095Active acetaminophen-codeine (Tylenol w/ Codeine #3) 300-30 MG tablet Indications:Spinal stenosis at L4-L5 level,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 300 g 5Active DULoxetine (Cymbalta) [address] capsule Indications:Stress reactionTAKE 1 CAPSULE(30 MG) BY MOUTH DAILY. DO NOT CRUSH OR CHEW 90 capsule 5Active ciprofloxacin (Cipro) 250 MG tablet Indications:Acute cystitis without hematuriaTake 1 tablet (250 mg) by mouth in the morning and 1 tablet (250 mg) before bedtime. Do all this for 5 days. 10 tablet Expired Active Problems ProblemNoted DateDiagnosed DateClass 3 severe obesity with serious comorbidity and body mass index (BMI) of 50.0 to 59.9 in adult11/08/2023Stress reaction 05/08/2023yspnea on kfriskeb73/01/2024ilateral cohqsrlibbcy41/31/2023hronic venous hypertension (idiopathic) with ulcer and inflammation of left lower tkzisttpr15/31/2023ecreased estrogen level10/06/2022isplacement of lumbar disc with xzghaogeensla23/31/2023Edema due to congestive heart ehvrxiq1810/06/2022 Tmhfpke0010/06/20221522Hamydhtezsttve12/31/2023Macular hole of left eye10/06/2022 Metabolic /31/2023Obesity, morbid, BMI 50 or mfgtkh3310/06/2022 Obstructive sleep apnea rcorydwq58/31/2023Osteopenia of right hip10/06/2022Other specific arthropathies, not elsewhere classified, right tmsqzugw25/31/2023 Peripheral oiyfljhijp98/31/2023rimary osteoarthritis of both knees10/06/2022 Restless legs10/06/20220882Vgnfkjp30/31/2023Spinal enthesopathy of lumbar region 10/06/2022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, lumbar region 10/06/2022Spinal stenosis at L4-L5 level10/06/2022Stasis dermatitis of both legs 10/06/2022Unspecified rotator cuff tear or rupture of right shoulder, not specified as qslnudgsr88/31/2023Vitamin D ikgohmgttj84/31/2023hronic diastolic heart ddmbcqz0707/25/2022oronary artery disease involving chitina coronary artery of chitina heart with angina pvbuakpx84/19/2023enign essential hypertension 07/12/2007 Encounters DateTypeDepartmentCare DlhkLkwzjmddfqq44/03/2025Telephone [facility] [address] [place] [phone] Edmund Torres MD 12/09/2024Refill [facility] [address] [place] [phone] Edmund Torres MD Stress wrsjapsl79/13/2025Refill [facility] [address] [place] [phone] Edmund Torres MD Osteopenia of right hip; Spinal stenosis at L4-L5 level; 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 [address] [place] [address] Concha Whitley LPN 11/14/2024Telephone [facility] [address] [place] [address] Concha Whitley LPN Med Bpjajp9011/14/2024Patient Outreach [facility] [address] 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 [address] 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 10/11/2024Travelfrom Last 3 Months Immunizations ImmunizationAdministration DatesNext DueInfluenza, High Dose Seasonal, Preservative Free11/01/2022,11/23/2021,11/04/2021,12/07/2020,11/05/2020 Influenza, High-dose Seasonal, Quadrivalent, Preservative Free11/08/2023, 11/11/2019,12/26/2018,12/07/2017,10/10/2016Influenza, seasonal, injectable, preservative free11/01/2012Influenza, seasonal, intradermal, preservative free 10/09/2014,12/02/2013Pneumococcal Conjugate PCV 1308Pneumococcal Polysaccharide JLPG2892,06/20/2007 Family History Medical HistoryRelationNameCommentsHeart diseaseFatherStrokeFatherHeart disease MotherHypertensionMotherRelationNameStatusCommentsFatherDeceasedMotherDeceased Social History Tobacco UseTypesPacks/DayYears UsedDateSmoking Tobacco: NeverSmokeless Tobacco: Never Tobacco Cessation:Counseling Given: Not Answered Alcohol UseStandard Drinks/WeekCommentsNever0 (1 standard drink = 0.6 oz pure alcohol)Social Connection and Isolation PanelAnswerDate RecordedIn a typical week, how many times do you talk on the phone with family, friends, or neighbors?More than three times a week09/17/2024How often do you get together with friends or relatives?Three times a week09/17/2024ttends Zoroastrianism Services Not on file09/17/2024Do you belong to any clubs or organizations such as baptist groups, unions, fraternal or athletic groups, or school groups?No09/17/2024 Attends Club or Organization MeetingsNot on file09/17/2024re you , , , , never , or living with a partner? 09/17/2024PHQ-2AnswerDate RecordedPatient Health Questionnaire-2 Score0 10/18/2024Exercise Vital SignAnswerDate RecordedDays of Exercise per WeekNot on file09/17/2024On average, how many minutes do you engage in exercise at this level?10 min09/17/2024CommentsUnknownSex and Gender InformationValueDate RecordedSex Assigned at BirthNot on fileLegal VvjZmwwib69/15/2023 6:50 PM EDT Gender IdentityNot on fileSexual OrientationNot on file Last Filed Vital Signs Vital SignReadingTime TakenCommentsBlood Wikzmarb222/7409 9:16 AM EDT Agexx9871 9:16 AM EDTTemperature--Respiratory Whll7028 9:12 AM EDTOxygen Ovuzgilvya23%10/18/2024 9:16 AM EDTInhaled Oxygen Concentration-- Zdkern856 kg (285 lb)10/18/2024 9:16 AM CLRWhtbfm320 cm (5' 3 )10/18/2024 9:16 AM EDTBody Mass Index50.49010/18/2024 9:16 AM EDT Plan of Treatment DateTypeDepartmentCare Team (Latest Contact Info)Enhrydgghgp69/12/2026 9:30 AM EDTOffice Visit [facility] [address] [facility] [address] [place] [phone] Edmund Torres MD 112 [facility] [address] [place], [place] [address] Health MaintenanceDue DateLast DoneCommentsCOVID-19 Vaccine ( season) /, 04/06/2020Influenza Vaccine (#1)510/03/2023, 11/01/2022, 11/23/2021, Additional history existsPneumococcal Vaccine: 65+ Years Zkvzkccrz83/07/2019, 09/07/2017, 06/20/2007 Insurance Care Teams Team MemberRelationshipSpecialtyStart DateEnd Date Edmund Torres MD [address] [facility] [address] [place] [address] PCP - ACO Reach06/30/22 Edmund Torres MD [address] [facility] [address] [place] [address] PCP - GeneralInternal Medicine06/14/22 Concha Whitley LPN [address] [facility] [address] [place] [address] 09/16/24
--- OUTSIDE RECORDS SUMMARY | 2025-01-08 10:36 | XMS_ITS | Clinical Summary ---
Author Organization [facility] tem Address [id number] [address] [place] [address] Care Team Providers Care Metal Fabricator Apprentice Name Role Phone Edmund Torres MD Primary Care Provider [phone] Social History Tobacco UseTypesPacks/DayYears UsedDateSmoking Tobacco: Never AssessedChildcare AnswerDate FswulawhNrgeyfpbxEtvsfci39/12/2019EmploymentAnswerDate Recorded RuqxsiyuppMgbhycm12/12/2019CommentsUnknownSex and Gender Information ValueDate RecordedSex Assigned at BirthNot on fileLegal VgpNvdvxq05/06/2015 11:55 AM EDTGender IdentityNot on fileSexual OrientationNot on file Plan of Treatment Health MaintenanceDue DateLast DoneCommentsDepression Pebzrxhck22/21/1948Tobacco Kpiruytxn39/21/1948DTaP,Tdap and Td Vaccines (1 - Tdap)05/27/1954Zoster (Shingles) Vaccine (1 of 2)05/27/1985Fall Risk Ndorasthj08/21/2001RSV ( or age 60+ yrs) (1 - 1-dose 75+ series)05/27/2010COVID-19 Vaccine ( season)/, 05/23/2021, 12/03/2020, Additional history exists Influenza Bikqpdl60/03/2023, 11/01/2022, 11/23/2021, Additional history exists Medical Devices Not on file Insurance Care Teams Team MemberRelationshipSpecialtyStart DateEnd Date Edmund Torres MD 112 [facility] [address] [place] [address] PCP - GeneralInternal Vrmlthry11/11/24
--- OUTSIDE RECORDS SUMMARY | 2025-01-08 10:36 | XMS_ITS | Clinical Summary ---
Author Organization [facility] Address [address] [place] [address] Care Team Providers Care Parts Counter Specialist Name Role Phone Edmund Torres MD Primary Care Provider [phone] Allergies Active AllergyReactionsCriticalityNoted DateCommentsLevonorgestrel-Ethinyl KihtynCalahd62/29/2017 Other reaction(s): Other (See Comments) WATERY ITCHY EYES, RUNNY NOSE RurikoqbiewMvsopilJmtsgm68/29/2017 WATERY ITCHY EYES, RUNNY NOSE OxaprozinOther,CrskjujcNuyirl51/07/2017 Other reaction(s): Unknown WELTS TO FACE, SWELLING OF MOUTH AND THROAT. DENIES ANAPHLYAXIS SertralineOther,JbcmktxxAfkxks08/19/2014 Other reaction(s): Unknown WELTS TO FACE, SWELLING OF MOUTH AND THROAT, DENIES ANAPHYLAXIS Medications MedicationSigDispense QuantityRefillsLast FilledStart DateEnd DateStatus niacin, inositol niacinate, 400 mg niacin (500 mg) capsule Take 400 mg by mouth 1 (one) time each day.Active acetaminophen-codeine (Tylenol w/ Codeine #3) 300-30 mg tablet Take 300 tablets by mouth every 6 (six) hours if needed.12/27/2021ctive minocycline 100 mg capsule Take 100 capsules by mouth in the morning.10/09/2014ctive diclofenac (Voltaren) 1 % topical gel Apply topically if needed in the morning, at noon, in the evening, and at bedtime for pain.Active gabapentin (Neurontin) 300 mg capsule Take 300 mg by mouth in the morning, at noon, and at bedtime.Active DULoxetine (Cymbalta) [address] capsule Take 30 mg by mouth in the morning.05/08/2023ctive cholecalciferol (Vitamin D-3) 125 MCG (5000 UT) capsule Take 5,000 Units by mouth in the morning.Active carvedilol (Coreg) 25 mg tablet Indications:Essential hypertensionTake 1 tablet (25 mg) by mouth every 12 (twelve) hours. 180 tablet 4Active lisinopril 40 mg tablet Indications:Essential (primary) hypertensionTake 1 tablet (40 mg) by mouth in the morning. 90 tablet ctive aspirin 81 mg EC tablet Take 81 mg by mouth in the morning.Active isosorbide mononitrate ER (Imdur) 30 mg 24 hr tablet Indications:Essential (primary) hypertensionTake 1 tablet (30 mg) by mouth in the morning. Do not crush or chew. 90 tablet 5Active atorvastatin (Lipitor) 40 mg tablet Indications:Hyperlipidemia, unspecifiedTAKE 1 TABLET BY MOUTH AT BEDTIME 90 tablet 5Active pantoprazole (ProtoNix) 40 mg EC tablet Indications:Chest pain, unspecified typeTAKE 1 TABLET BY MOUTH BEFORE BREAKFAST (DO NOT CRUSH, CHEW, OR SPLIT) 90 tablet 5Active ranolazine (Ranexa) 500 mg 12 hr tablet Indications:Chest pain, unspecified typeTAKE 1 TABLET(500 MG) BY MOUTH IN THE MORNING AND AT BEDTIME 180 tablet 5Active potassium chloride CR (Klor-Con) 10 mEq ER tablet Indications:Essential (primary) hypertensionTAKE 1 TABLET BY MOUTH TWICE DAILY 180 tablet 5Active bumetanide (Bumex) 1 mg tablet Indications:Essential (primary) hypertensionTake 1 tablet (1 mg) by mouth in the morning. 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 without angina pectoris,Nonrheumatic mitral valve regurgitationTAKE 1 TABLET BY MOUTH ONCE DAILY DIRECTED 90 tablet 5Active Active Problems ProblemNoted DateDiagnosed DateDyspnea on halorxuz99/07/2023Stress kguahbxo88/ilateral amheddrkazlw49/31/202309/hronic venous hypertension (idiopathic) with ulcer and inflammation of left lower rjmxwquuh20/31/938389/20/2023Decreased estrogen level Displacement of lumbar disc with ddkqdkjraxdez83Edema due to congestive heart owcsihk52FrailtyMetabolic fxbknlka99Obstructive sleep apnea ultykvqq52 Osteopenia of right hipOther specific arthropathies, not elsewhere classified, right czylweqy52rimary osteoarthritis of both kneesRestless legsRosacea Spinal enthesopathy of lumbar fogkme10 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, lumbar cpkzlo8210/06/2022 10/26/2022Spinal stenosis at L4-L5 levelStasis dermatitis of both legsUnspecified rotator cuff tear or rupture of right shoulder, not specified as yizuftmfx11Vitamin D deficiency Ultrasound scan palboxkp46/17/2023hest pain06/22/2022 Cardiovascular stress test lfgmkuqh95/17/2023Nonmagnetic foreign body of left eye10/06/2016Macular hole, left eye07/14/20164984Kksiiji95/23/2012Idiopathic peripheral cbciqjuxuq19/23/7153Rpmzcvqyjnqrnn75/28/2012Essential hypertension 05/04/2011Coronary cixxjtwojvmtvue83/28/2012Chronic diastolic heart failure 05/04/2011 Encounters DateTypeDepartmentCare QhjtMzeztjdmbsf87/19/2025 10:15 AM ESTOffice Visit [facility] [address] [place] [address] Valeriano King MD MELENDEZ (dyspnea on exertion) (Primary Dx); Benign hypertensive heart disease with heart failure (CMS/HCC)12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 [address] [place] [facility] [place] [address] Xuan Aparicio MA Essential (primary) lodfthzywotb89/05/2025[facility] [address] [place] [facility] [place] [address] Valeriano King MD Essential (primary) hsppiyrfjajp03/15/2025[facility] [address] [place] [facility] [place] [address] Valeriano King MD Chest pain, unspecified typefrom Last 3 Months Immunizations ImmunizationAdministration DatesNext DueInfluenza, High Dose Seasonal, Preservative Free11/23/2021,12/07/2020,11/11/2019,12/26/2018,12/05/2017, 10/26/2016,10/10/2016Pfizer SARS-CoV-2 Diluojsyoxs47/23/2021,04/06/2020 Pneumococcal Conjugate PCV 1308Pneumococcal Polysaccharide PPV23 09/12/2018 Family History Medical HistoryRelationNameCommentsCoronary artery diseaseOtherRelationName StatusCommentsFatherDeceasedMotherDeceasedOther Social History Tobacco UseTypesPacks/DayYears UsedDateSmoking Tobacco: NeverSmokeless Tobacco: Never Tobacco Cessation:Counseling Given: Not Answered Alcohol UseStandard Drinks/WeekCommentsNot Currently0 (1 standard drink = 0.6 oz pure alcohol)UT Safety & EnvironmentAnswerDate RecordedFear of Current or Ex-PartnerNot on file03/30/2023Emotionally AbusedNot on file03/30/2023hysically AbusedNot on file02/22/2024Sexually AbusedNot on file4Physically or Sexually AbusedNot on file03/30/2023CommentsUnknownSex and Gender InformationValueDate RecordedSex Assigned at LeznbUtetfu21/17/2025 11:44 AM EST Legal OeeRodewu49/29/2022 9:53 PM EDTGender JadabzuwZgwbhy19/17/2025 11:44 AM ESTSexual OrientationHeterosexual or Jbjiyubh83/17/2025 11:44 AM EST Last Filed Vital Signs Vital SignReadingTime TakenCommentsBlood Amdmsmsy665/5712/25/2024 9:57 AM EST Yjdll677712/25/2024 9:57 AM ESTTemperature--Respiratory Rate--Oxygen Hhsasvuuhs70% 12/25/2024 9:57 AM ESTInhaled Oxygen Concentration--Ozucmn147 kg (285 lb) 12/25/2024 9:57 AM VMFCcpvjq466.5 cm (5' 2 )12/25/2024 9:57 AM ESTBody Mass Index52.13102/25/2024 9:57 AM EST Plan of Treatment Health MaintenanceDue DateLast DoneCommentsMedicare Annual Wellness (AWV) 1935Depression Atnkplebr52/21/1948Adult Xabdgxk1605/27/1957Zoster Vaccines (1 of 2)05/27/1985Fall Risk Ftgpwggtj77/21/2001COVID-19 Vaccine ( season)5004/28/2020, 04/06/2020Influenza Vaccine (#1)2024 11/08/2023, 11/01/2022, 11/23/2021, Additional history existsPneumococcal Vaccine: 50+ CslioOxnznfnum49/07/2019, 09/07/2017, 06/20/2007HIB VaccinesAged OutNo longer eligible based on patient's age to complete this topicHPV Vaccines Aged OutNo longer eligible based on patient's age to complete this topicIPV VaccinesAged OutNo longer eligible based on patient's age to complete this topic Meningococcal B VaccineAged OutNo longer eligible based on patient's age to complete this topicMeningococcal VaccineAged OutNo longer eligible based on patient's age to complete this topicRotavirus VaccinesAged OutNo longer eligible based on patient's age to complete this topic Insurance Care Teams Team MemberRelationshipSpecialtyStart DateEnd Edmund Torres MD [address] [facility] [address] [place] [address] [facility]06/21/22
--- OUTSIDE RECORDS SUMMARY | 2025-01-08 10:36 | XMS_ITS | Clinical Summary ---
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 DENIES ANAPHLYAXIS Environmental/SeasonalOther (See Comments)Vofohm1710/04/2016 WATERY ITCHY EYES, RUNNY NOSE Sertraline HclSwelling,Other (See Comments)Amoxwo1107/13/2016 WELTS TO FACE, SWELLING OF MOUTH AND THROAT, DENIES ANAPHYLAXIS Medications MedicationSigDispense QuantityRefillsLast FilledStart DateEnd DateStatus acetaminophen-codeine (TYLENOL #3) 300-30 MG per tablet Take 1 tablet by mouth every 4 hours as needed for PainActive aspirin 81 MG tablet Take 81 mg by mouth dailyActive atorvastatin (LIPITOR) 40 MG tablet Take 40 mg by mouth nightlyActive loratadine (CLARITIN) 10 MG tablet Take 10 mg by mouth nightlyActive furosemide (LASIX) 40 MG tablet Take 40 mg by mouth dailyActive isosorbide mononitrate (IMDUR) 30 MG extended release tablet Take 30 mg by mouth dailyActive lisinopril (PRINIVIL;ZESTRIL) 20 MG tablet Take 20 mg by mouth dailyActive metoprolol succinate (TOPROL XL) 100 MG extended release tablet Take 100 mg by mouth nightly Also took 8 @ 2100Active niacin 500 MG extended release capsule Take 1,000 mg by mouth nightlyActive ranolazine (RANEXA) 500 MG extended release tablet Take 500 mg by mouth 2 times dailyActive Cholecalciferol (VITAMIN D3) 5000 UNITS TABS Take 1 tablet by mouth nightlyActive Carboxymethylcellulose Sodium (LUBRICANT EYE DROPS OP) Place into both eyes as needed HAS NOT USED IN LEFT EYE SINCE EYE SURGERY 07/2016Active Active Problems ProblemNoted DateDiagnosed DateNonmagnetic foreign body of left eye - Silicone 10/06/2016Macular hole, left eye07/14/2016 Family History Medical HistoryRelationNameCommentsHigh Blood PressureFatherStrokeFatherHeart DiseaseMotherRelationNameStatusCommentsFatherDeceasedMotherDeceased Social History Tobacco UseTypesPacks/DayYears UsedDateSmoking Tobacco: NeverAlcohol UseStandard Drinks/WeekCommentsNo0 (1 standard drink = 0.6 oz pure alcohol)Comments NoSex and Gender InformationValueDate RecordedSex Assigned at BirthNot on file Legal FixImrbjb28/10/2013 11:48 AM ESTGender IdentityNot on fileSexual OrientationNot on file Last Filed Vital Signs Vital SignReadingTime TakenCommentsBlood Gkfbxdwa067/61010/06/2016 10:30 AM EDT Veiho954910/06/2016 10:30 AM LKNTptiasylazw75 ??C (96.8 ??F)10/06/2016 10:30 AM EDTRespiratory Twig505910/06/2016 10:30 AM EDTOxygen Prrmheiort45%10/06/2016 10:30 AM EDTInhaled Oxygen Concentration--Vfvpka474.6 kg (327 lb 9.7 oz)10/06/2016 7:18 AM TPIDnodgi099.5 cm (5' 2 )10/06/2016 7:18 AM EDTBody Mass Index59.92 10/06/2016 7:18 AM EDT Plan of Treatment Not on file Medical Devices ImplantedTypeAreaManufacturerDevice IdentifierShelf Expiration DateModel / Serial / LotSolution Surg Fluid Silikon 1000 Implanted:Qty: 1 on 07/14/2016 by Lars Rojas MD at [facility]-PM06/05/[id number] / / [id number] Insurance * Guarantor: Reta Serra TypeRelation to PatientDate of BirthPhone Billing AddressPersonal/HncznzGgwj82/ [address] [place] [address] Care Teams Team MemberRelationshipSpecialtyStart DateEnd Edmund Torres MD [address] [facility] [address] [place] [address] PCP - GeneralInternal Medicine07/13/16
--- OUTSIDE RECORDS SUMMARY | 2025-01-08 10:59 | XMS_ITS | CCD ---
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 Name Role Phone RICARDO, ROMERO T Unavailable Unavailable RICARDO ROMERO T Unavailable Unavailable EDMUND TORRES Unavailable Unavailable PHYSICIAN, DEFAULT Unavailable Unavailable PHYSICIAN, DEFAULT Unavailable Unavailable EDMUND TORRES Unavailable Unavailable [place]TAHAWY, DR REBOLLEDO Admitting Unavailable [place]TAHAWY, DR REBOLLEDO Attending Unavailable ELTAHAWY, DR REBLOLEDO Admitting Unavailable ELTAHAWY, DR REBOLLEDO Attending Unavailable ELTAHAWY, DR REBOLLEDO Admitting Unavailable ELTAHAWY, DR REBOLLEDO Consulting Unavailable ELTAHAWY, DR REBOLLEDO Attending Unavailable Edmund Torres MD Unavailable Edmund Torres MD Primary Care Provider VALERIANO KING Attending Unavailable [place]HAWY, VALERIANO Attending Unavailable [place], VALERIANO Attending Unavailable ELTONHAWVALERIANO Huynh A Referring Unavailable EDMUND TORRES Primary Care Unavailable [place] 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 WELL PERFORATOR OPERATORConcha Unavailable EDMUND TORRES Attending Unavailable EDMUND TORRES Attending Unavailable EDMUND TORRES Attending Unavailable Allergies Allergy ClassificationReported Allergen(s)Allergy TypeDate of OnsetReaction(s) Facility (2 sources)oxaprozin; Translations: [daypro]Drug Zqnuzxq61-02-3174Cno [facility] Rep[facility] (2 sources)sertralineDrug Zslrnda21-10-6552Fzd [facility] Repository (16 sources)oxaprozin; Translations: [OXAPROZIN]Drug Yyesufg74-44-7253Rphdunu [facility] (16 sources)Sertraline; Translations: [SERTRALINE]Drug Hcokebe50-18-6721Edysbrb [facility] (16 sources)Levonorgestrel-Ethinyl Estrad; Translations: [LEVONORGESTREL-ETHINYL ESTRAD]Drug Pmrdiwfekvq74-41-8625[facility] Work Phone: (15 sources)OctacosanolDrug Rctjujwrrhj13-81-4296DzsjpbsB[facility] Medications Current Medications MedicationDrug Class(es)DatesSig (Normalized)Sig (Original)acetaminophen 300 mg / codeine phosphate 30 mg oral tablet (19 sources)Opioid AgonistStart: 04-73-2748kfpv 1 tablet by mouth every six hours for painacetaminophen-codeine (Tylenol w/ Codeine #3) 300-30 MG tablet Indications: Spinal stenosis at L4-L5 level , 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, lumbar region , Displacement of lumbar disc with radiculopathy Take 1 tablet by mouth every 6 (six) hours if needed for moderate pain 120 tablet 1 11/15/2024 ActiveStart: 09-12-2024 End: 54-47-3085seoy 1 tablet by mouth every six hours for painacetaminophen- codeine (Tylenol w/ Codeine #3) 300-30 MG tablet Indications: Spinal stenosis at L4-L5 level , 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, lumbar region , Displacement of lumbar disc with radiculopathy Take 1 tablet by mouth every 6 (six) hours if needed for moderate pain 120 tablet 10/18/2024 11/15/2024 Discontinued (Reorder)Start: 09-09-2024 End: 37-36-8560mpun 1 tablet by mouth every six hours as needed for pain acetaminophen-codeine (Tylenol w/ Codeine #3) 300-30 MG tablet Indications: Spinal stenosis at L4-L5 level , 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, lumbar region , Displacement of lumbar disc with radiculopathy TAKE 1 TABLET BY MOUTH EVERY 6 HOURS NEEDED FOR MODERATE PAIN 120 tablet 09/09/2024 09/10/2024 Discontinued (Reorder)Start: 07-31-2024 End: 07-05-2512cymi 1 tablet by mouth every six hours for painacetaminophen- codeine (Tylenol w/ Codeine #3) 300-30 MG tablet Indications: Spinal stenosis at L4-L5 level , 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, lumbar region , Displacement of lumbar disc with radiculopathy Take 1 tablet by mouth every 6 (six) hours if needed for moderate pain 120 tablet 07/31/2024 08/30/2024 Active Start: 05-31-2024 End: 65-06-9956kizt 1 tablet by mouth every six hours for painacetaminophen- codeine (Tylenol w/ Codeine #3) 300-30 MG tablet Indications: Spinal stenosis at L4-L5 level , 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, lumbar region (CMS/HCC) , Displacement of lumbar disc with radiculopathy Take 1 tablet by mouth every 6 (six) hours if needed for moderate pain 120 tablet 05/31/2024 06/30/2024 ActiveStart: 07-10-2023 End: 92-73-4042tlzr 1 tablet by mouth every six hours for painacetaminophen- codeine (Tylenol w/ Codeine #3) 300-30 MG tablet Indications: Spinal stenosis at L4-L5 level , 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, lumbar region (CMS/HCC) , Displacement of lumbar disc with radiculopathy Take 1 tablet by mouth every 6 (six) hours if needed for moderate pain 120 tablet 04/02/2024 05/02/2024 ActiveStart: 03-47-6561hcjn 1 tablet by mouth every six hours for painacetaminophen-codeine (Tylenol w/ Codeine #3) 300-30 MG tablet Indications: 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 Active bumetanide 1 mg oral tablet (15 sources)Loop Diuretictake 1 tablet by mouth in the morningbumetanide (Bumex) 1 MG tablet Take 1 mg by mouth in the morning. Activecarvedilol 25 mg oral tablet (14 sources)alpha-Adrenergic Mohsen, beta-Adrenergic BlockerStart: 06-21-2024 take 1 tablet by mouth in the morningcarvedilol (Coreg) 25 MG tablet Indications: Benign essential hypertension , Chronic diastolic heart failure (HCC) TAKE 1 TABLET BY MOUTH IN THE MORNING AND 1 TABLET BY MOUTH BEFORE BEDTIME 180 tablet 3 06/21/2024 ActiveStart: 10-12-2022 End: 68-29-7729jlje 1 tablet by mouth in the morningcarvedilol (Coreg) 25 MG tablet Indications: Benign essential hypertension (CMS/HCC) , Chronic diastolic heart failure (CMS/HCC) TAKE 1 TABLET BY MOUTH IN THE MORNING AND 1 TABLET BY MOUTH BEFORE BEDTIME 180 tablet 3 08/14/2023 Activecholecalciferol 0.125 mg oral capsule (14 sources)Vitamin Dtake 1 capsule by mouth once dailycholecalciferol 125 MCG (5000 UT) capsule Take 5,000 Units by mouth Daily Activedapagliflozin 10 mg oral tablet (9 sources)Sodium-Glucose Cotransporter 2 InhibitorStart: 02-01-2024 End: 27-42-4559lvnp 10 mg by mouth once dailydapagliflozin (Farxiga) 10 MG Take 10 mg by mouth Daily 02/01/2024 01/31/2025 Activediclofenac sodium 0.01 mg/mg topical gel (14 sources)Nonsteroidal Anti-inflammatory DrugStart: 48-26-2718vxsqxbjqdf sodium 1 % gel Indications: Osteopenia of right hip APPLY 4 GRAMS TO RIGHT SHOULDER 4 TIMES PER DAY 300 g 1 12/26/2022 ActiveDULoxetine 30 mg delayed release oral capsule (16 sources)Serotonin and Norepinephrine Reuptake InhibitorStart: 09-26-2023 End: 60-08-7469uuow 1 capsule by mouth once dailyDULoxetine (Cymbalta) [address] capsule Indications: Stress reaction Take 1 capsule (30 mg) by mouthDaily Do not crush or chew. 90 capsule 3 11/08/2023 Activegabapentin 300 mg oral capsule (14 sources)Anti-epileptic Agenttake 1 capsule by mouth in the morning, then take 1 capsule by mouth in the evening, then take 1 capsule by mouth at bedtime gabapentin (Neurontin) 300 MG capsule Take 300 mg by mouth in the morning and 300 mg in the eveningand 300 mg before bedtime. Activeinositol 100 mg / niacin 400 mg oral capsule (12 sources)Nicotinic AcidStart: 09-12-2024 End: 74-77-5456ijyi 1 capsule by mouth once dailyNiacin-Inositol (No Flush Niacin) 400-100 MG capsule Indications: Mixed hyperlipidemia Take 1 capsule by mouth Daily 90 capsule 3 09/12/2024 09/12/2025 ActiveStart: 07-10-2023 End: 39-18-3874bffe 1 capsule by mouth once dailyNiacin-Inositol (No Flush Niacin) 400-100 MG capsule Indications: Mixed hyperlipidemia (CMS/HCC) Take 1 capsule by mouth Daily 90 capsule 3 07/10/2023 07/09/2024 ActiveStart: 10-12-2022 End: 12-50-2762iubi 1 capsule by mouth in the morningNo Flush Niacin 400-100 MG capsule Indications: Mixed hyperlipidemia (CMS/HCC) Take 1 capsule by mouth in the morning. 90 capsule 3 10/12/2022 10/12/2023 Euyemb76 hr isosorbide mononitrate 30 mg extended release oral tablet (16 sources)Nitrate VasodilatorStart: 01-10-2023 End: 82-75-3337udvh 1 tablet by mouth every twenty-four hours in the morning isosorbide mononitrate ER (Imdur) 30 MG 24 hr tablet Indications: Benign essential hypertension Take 1 tablet (30 mg) by mouth in the morning. 100 tablet 3 03/13/2023 Activelisinopril 40 mg oral tablet (14 sources)Angiotensin Converting Enzyme InhibitorStart: 98-87-2082rsri 1 tablet by mouth in the morninglisinopril 40 MG tablet Indications: Benign essential hypertension TAKE 1 TABLET BY MOUTH IN THE MORNING 90 tablet 3 10/08/2024 ActiveStart: 30-98-6377lloa 1 tablet by mouth in the morning lisinopril 40 MG tablet Indications: Benign essential hypertension TAKE 1 TABLET BY MOUTH IN THE MORNING 90 tablet 3 11/17/2023 ActiveStart: 10-12-2022 End: 85-17-3510bzec 1 tablet by mouth in the morninglisinopril 40 MG tablet Indications: Benign essential hypertension (CMS/HCC) Take 1 tablet (40 mg) by mouth in the morning. 90 tablet 3 10/12/2022 Activeminocycline 100 mg oral tablet (14 sources)Tetracycline-class Drugtake 1 tablet by mouth in the morning minocycline (Dynacin) 100 MG tablet Take 100 mg by mouth in the morning and 100 mg before bedtime. Activepantoprazole 40 mg delayed release oral tablet (14 sources)Proton Pump Inhibitortake 1 tablet by mouth before mealtime pantoprazole (ProtoNix) 40 MG EC tablet Take 40 mg by mouth in the morning. Take before meals. Do not crush, chew, or split.. Activepotassium chloride 10 meq extended release oral tablet (15 sources)take 1 tablet by mouth every twelve hourspotassium chloride CR (Klor-Con) 10 MEQ ER tablet Take 10 mEq by mouth every 12 (twelve) hours. Active 12 hr ranolazine 500 mg extended release oral tablet (15 sources)Anti-anginalStart: 54-71-8603jing 1 tablet by mouth twice daily ranolazine (Ranexa) 500 MG 12 hr tablet Indications: Coronary artery disease involving [place] coronary artery of [place] heart with angina pectoris TAKE 1 TABLET BY MOUTH TWICE A DAY 180 tablet 1 02/27/2023 Active Problems Active Problems Problem ClassificationProblemDateDocumented DateEpisodic/Chronic Administrative/social admission (2 sources)Patient encounter status; Translations: [Other specified counseling] 88-97-1667EiloqaeaBzsvqmq disorders (16 sources)Acute stress disorder; Translations: [Acute stress reaction]Onset: 050763-95-8018SgfdqazCwqclzpo (15 sources)Bilateral pseudophakia; Translations: [Presence of intraocular lens] Onset: 678401-53-4705VokodmlHgevhvd kidney disease (4 sources)Chronic kidney disease stage 3B ; Translations: [Chronic kidney disease, stage 3b (HCC) (CMS/HCC)]51-33-2006IwdqrdtNvnznnbpmz heart failure; nonhypertensive (20 sources)Chronic diastolic heart failure; Translations: [Chronic diastolic (congestive) heart failure]Onset: 190862-58-4827QmtrywrGrxxkofa atherosclerosis and other heart disease (20 sources)Coronary arteriosclerosis; Translations: [Atherosclerotic heart disease of [place] coronary artery with unspecified angina pectoris]Onset: 600561-08-2874KewtlxlCqbxieyb, dementia, and amnestic and other cognitive disorders (15 sources)Frailty; Translations: [Age-related physical debility]Onset: 272471-18-4591BdnvbrgTriyyxsdi of lipid metabolism (20 sources)Hyperlipidemia; Translations: [Hyperlipidemia, unspecified]Onset: 108134-90-4493LxnkihgXeseuxdes hypertension (18 sources)Benign essential hypertension; Translations: [Essential (primary) hypertension]Onset: 901299-06-8446YnigienYfhql valve disorders (3 sources)Nonrheumatic mitral (valve) insufficiency; Translations: [Nonrheumatic mitral (valve) insufficiency]Onset: 56-61-7407HavalpiZrdxzxrerwfsz and screening for infectious disease (2 sources)Needs influenza immunization; Translations: [Encounter for immunization]79-81-2613TriwsiofMxsuhiobhh disorders (15 sources)Decreased estrogen level; Translations: [Other primary ovarian failure]Onset: 255713-93-3393YwthxdbBkhbdxdbfva deficiencies (15 sources)Vitamin D deficiency; Translations: [Vitamin D deficiency, unspecified]Onset: 176590-31-7091HgrhrowMybexhtdbhrjoe (15 sources)Primary gonarthrosis, bilateral; Translations: [Bilateral primary osteoarthritis of knee]Onset: 873592-47-9248YtabqpiNwpak diseases of veins and lymphatics (12 sources)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; Translations: [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]Onset: hronic Other diseases of veins and lymphatics (7 sources)Chronic peripheral venous hypertension; Translations: [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] Onset: 732889-72-9104RneweveKyqtb hereditary and degenerative nervous system conditions (15 sources)Restless legs; Translations: [Restless legs syndrome]Onset: 666635-42-8665CgsswvfNnjik inflammatory condition of skin (15 sources)Rosacea; Translations: [Rosacea, unspecified]Onset: 10-06-2022 88-00-2149OpcfhceGucxm nervous system disorders (15 sources)Peripheral nerve disease ; Translations: [Polyneuropathy, unspecified]Onset: 007979-94-4015IzzooeiAvjwd nervous system disorders (4 sources)Chronic inflammatory demyelinating polyradiculoneuropathy; Translations: [Chronic inflammatory demyelinating polyneuritis]65-66-1720Mscuaei Other non-traumatic joint disorders (1 source)Disorder of joint of shoulder region; Translations: [Other specific arthropathies, not elsewhere classified, right shoulder]Onset: 10-06-2022 09-20-5019JorwrzxNgdja non-traumatic joint disorders (14 sources)Arthropathy of right shoulder; Translations: [Other specific arthropathies, not elsewhere classified, right shoulder]Onset: 10-06-2022 10-58-7571FvoeafkHixcy nutritional; endocrine; and metabolic disorders (15 sources)Metabolic syndrome X; Translations: [Metabolic syndrome]Onset: 181621-05-4426VdoqbaoTkrti nutritional; endocrine; and metabolic disorders (15 sources)Morbid obesity; Translations: [Morbid (severe) obesity due to excess calories]Onset: 977262-60-8323WysnekoGxoww nutritional; endocrine; and metabolic disorders (15 sources)Severe obesity; Translations: [Class 3 severe obesity due to excess calories with serious comorbidity and body mass index (BMI) of 50.0 to 59.9 in adult ([facility])]Onset: 567783-82-0760GuhfihnQldmr nutritional; endocrine; and metabolic disorders (2 sources)Obesity caused by energy imbalance; Translations: [Morbid (severe) obesity due to excess calories]49-75-6296XoynokhUdreo nutritional; endocrine; and metabolic disorders (2 sources)Body mass index 40+ - severely obese; Translations: [Body mass index (BMI) 50.0-59.9, adult]52-64-2761RyjcawwRnooljvfu heart disease (2 sources)Pulmonary hypertension; Translations: [Pulmonary hypertension, unspecified]61-07-5088HwqnvxdEouglghi codes; unclassified (15 sources)Obstructive sleep apnea syndrome; Translations: [Obstructive sleep apnea (adult) (pediatric)]Onset: 124650-61-4871EztztccUclsuyx detachments; defects; vascular occlusion; and retinopathy (15 sources)Macular hole of left eye; Translations: [Macular cyst, hole, or pseudohole, left eye]Onset: 814176-77-4481JicvpldViuhjvueuky; intervertebral disc disorders; other back problems (20 sources)Spinal enthesopathy, lumbar region; Translations: [Spinal enthesopathy]Onset: 208286-59-4242VvehrwmMqpbqcifxjdi (1 source)SILICONE INVITREOUS / SILICONE INVITREOUS()Onset: 10-06-2016 Past or Other Problems Problem ClassificationProblemDateDocumented DateEpisodic/ChronicOther bone disease and musculoskeletal deformities (15 sources)Osteopenia; Translations: [Other specified disorders of bone density and structure, right thigh]Onset: 210987-79-7982XflrtxivIhuua connective tissue disease (15 sources)Tear of right rotator cuff; Translations: [Unspecified rotator cuff tear or rupture of right shoulder, not specified as traumatic]Onset: 10-06-2022 23-98-5562DkrcthaxAznbv diseases of veins and lymphatics (1 source)Stasis dermatitis; Translations: [Venous insufficiency (chronic) (peripheral)]Onset: 078840-58-4877DjjtqpdnPgzsz diseases of veins and lymphatics (16 sources)Disorder of vein of lower extremity; Translations: [Venous insufficiency (chronic) (peripheral)]Onset: 636570-49-1163YkzsuuniCxdht lower respiratory disease (4 sources)Shortness of breath; Translations: [SHORTNESS OF BREATH]Onset: 40-42-6471JrbejiajJasjq lower respiratory disease (14 sources)Dyspnea on exertion; Translations: [Other forms of dyspnea]Onset: 420655-97-6251TohcfhwlNmjnjeuqcvw; intervertebral disc disorders; other back problems (20 sources)Lumbar disc prolapse with radiculopathy; Translations: [Intervertebral disc disorders with radiculopathy, lumbar region]Onset: 623233-76-5821UcjpdxurEkumnvartnex (1 source)SILICONE INVITREOUS; Translations: [SILICONE INVITREOUS]Onset: 10-06-2016 Results Test NameValueInterpretationReference RangeFacilityBASIC METABOLIC PANLon 79-05-5432Pwhle gap [Moles/Vol]6 mmol/LNormal5-15[facility] Comment on above:Performed By: #### BMP #### [facility] ([id number]) [address] [place], [place] [address]Iaoawky [Mass/Vol]9.1 mg/dLNormal8.5-10.5PAvita Health System Bucyrus HospitalComment on above:Performed By: #### BMP #### [facility] ([id number]) [address] [place], [place] [address]Dsobjxed [Moles/Vol]104 mmol/IIabzvq89-268GhgXjoreuChildren'S Hospital Of San AntonioComment on above:Performed By: #### BMP #### [facility] ([id number]) [address] [place], [place] [address]AM9 [Moles/Vol]29 mmol/IUxbhhq58-52UcnKauynlAvita Health System Bucyrus Hospital Comment on above:Performed By: #### BMP #### [facility] ([id number]) [address] [place], [place] [address]Psdnfejlnz [Mass/Vol]1.30 mg/dLHigh0.40-1.00ProChildren'S Hospital Of San AntonioComment on above:Result Comment: METHOD TRACEABLE TO IDMS STANDARD Performed By: #### BMP #### [facility] ([id number]) [address] [place], [place] [address]YUY/1.73 sq M.predicted among non-blacks MDRD (S/P/Bld) [Vol rate/Area]40 mL/min/{1.73_m2}Low>59ProChildren'S Hospital Of San AntonioComment on above: Result Comment: Reported eGFR is based on the CKD-EPI 2021 equation that does not use a race coefficient.Performed By: #### BMP #### [facility] ([id number]) [address] [place], [place] [address]Pfqeqcf [Mass/Vol]105 mg/xTExop57-63XapBkbsrbChildren'S Hospital Of San Antonio Comment on above:Performed By: #### BMP #### [facility] ([id number]) [address] [place], [place] [address]Zftslwfse [Moles/Vol]4.6 mmol/LNormal3.5-5.0ProChildren'S Hospital Of San AntonioComment on above:Performed By: #### BMP #### [facility] ([id number]) [address] [place], [place] [address]Taptou [Moles/Vol]139 mmol/VGblrxh159-052QkiFqwqni [facility] HospitalComment on above:Performed By: #### BMP #### [facility] ([id number]) [address] [place], [place] [address]Etfj nitrogen [Mass/Vol]25 mg/dLNormal5-27ProChildren'S Hospital Of San AntonioComment on above:Performed By: #### BMP #### [facility] ([id number]) [address] [place], [place] [address]Zuymql Visiton 65-37-0779Szyunp-up [id number] Sheyla Leonardo 1935 F Date Provider Department [facility] Family History Problem Relation Age of Onset Coronary artery disease Other Family Status - Relation Status Age at Other Level of Service:66983 AL OFFICE/OUTPATIENT ESTABLISHED MOD [facility] COMPLETEon 42-90-1688[address] [address] Cardiology Report Signed Patient: SHEYLA LEONARDO MR#: [id number] : 1935 Acct:[id number] Age/Sex: 88 / F ADM Date: 11/15/23 Loc: CARD Attending Dr: Valeriano King M.D. Ordering Physician: Valeriano King M.D. Date of Service: 11/15/23 Procedure(s): CA echo doppler complete Accession Number(s): [id number] cc: EDMUND TORRES ; Valeriano King M.D. Patient Name: SHEYLA LEONARDO MR#: [id number] : 1935 Exam Date: 11/15/2023 Ordering Doctor: DR Valeriano King M.D. ECHOCARDIOGRAM REPORT PROCEDURE: CA ECHO DOPPLER COMPLETE INDICATIONS: Aortic valve disease, ND, cardiac stent, hypertension, h/o rheumatic fever COMPARISON: None. DESCRIPTION: COMPLETE ECHOCARDIOGRAM Real-time transthoracic echocardiography with 2D, M-mode, spectral and color flow Doppler performed. QUALITY: Technical quality was good. LEFT VENTRICLE: Normal chamber size. Moderate concentric left ventricular hypertrophy. LV EF: Global left ventricular systolic function is normal; visually estimated ejection fraction is 55 to 60%. No significant wall motion abnormalities. DIASTOLIC: Not adequately assessed due to heart rhythm. ATRIAL SEPTUM: Visually appears intact. LEFT ATRIUM: Mild dilatation. RIGHT ATRIUM: Normal chamber size. RIGHT VENTRICLE: Normal chamber size. Normal right ventricular systolic function. TRICUSPID VALVE: Normal mobility and thickness. Moderate regurgitation. Doppler studies reveal moderately (45-60) elevated right sided pressures. RVSP 58 mmHg MITRAL VALVE: Mildly thickened with normal mobility. No evidence of mitral valve stenosis. Mild mitral annular calcification. Moderate mitral regurgitation. AORTIC VALVE: Normal trileaflet appearance. Mildly calcified aortic valve. Mildly diminished mobility. Doppler velocity suggests mild aortic valve stenosis. DVI 0.4, SHILA 1.7 cm2. Trivial aortic regurgitation. AORTIC ROOT: Normal diameter and appearance. Ascending aorta is normal in size. PULMONIC VALVE: Not well visualized. No regurgitation. PERICARDIUM: No evidence of pericardial effusion. IVC: IVC is dilated (2.5 cm) with no collapse. CONCLUSION: 1. Global left ventricular systolic function is normal; visually estimated ejection fraction is 55 to 60% 2. Moderate left ventricular hypertrophy 3. Normal right ventricular size and systolic function 4. The left atrium is mildly dilated 5. Moderate tricuspid regurgitation 6. Moderately elevated right ventricular systolic pressure; RVSP 58 mmHg 7. Moderate mitral regurgitation 8. Mild aortic valve stenosis Adult Echocardiography Procedure Report Left Ventricle LVEDD (3.7 - 5.6 cm): 3.79 cm LVESD (2.2 - 4.0 cm): 3.17 cm LVIVS thickness (0.6 - 1.2 cm): 1.36 cm LVPW thickness (0.5 - 1.0 cm): 1.36 cm LVOT Max Gradient: 3.18 mm[Hg], 2.83 mm[Hg], 3.04 mm[Hg] LVOT Area (cm2): 0.87 m/s Peak Velocity (LVOT): 0.89 m/s, 0.84 m/s, 0.87 m/s Mean Velocity (LVOT): 0.62 m/s LVOT Diameter 2.36 cm Left Atrium LA Volume Index (2D A2C): 41.16 ml/m2 Left Atrium Systolic Dimension: 4.80 cm Mitral Valve Mitral Valve E-Wave Peak Velocity: 1.54 m/s Right Ventricle Aorta AO Root Diam: 3.58 cm Ascending Ao Diam: 3.16 cm Aortic Valve AoV Area (Peak Haile): 1.76 cm2, 1.72 cm2, 1.80 cm2 AoV Area (VTI): 1.73 cm2, 1.74 cm2, 1.82 cm2 Peak Velocity(Antegrade Flow): 2.27 m/s, 2.04 m/s Peak Gradient(Antegrade Flow): 20.53 mm[Hg], 16.65 mm[Hg] Mean Velocity(Antegrade Flow): 1.50 m/s, 1.38 m/s Mean Gradient(Antegrade Flow): 10.58 mm[Hg], 8.90 mm[Hg] Velocity Time Integral: 51.56 cm, 42.08 cm Tricuspid Valve Peak Velocity (Regurgitant Flow): 3.30 m/s, 2.99 m/s Pulmonic Valve Peak Velocity: 0.89 m/s Peak Gradient: 3.14 mm[Hg] Right Atrium Right Atrium Systolic Pressure: 34.54 ml, 34.54 ml Dictated by: Valeriano King M.D (more content not included)...TBHRadiology, Radiologist, MD - 11/15/2023 [place] [address] Cardiology Report Signed Patient: SHEYLA LEONARDO MR#: [id number] : 1935 Acct:[id number] Age/Sex: 88 / F ADM Date: 11/15/23 Loc: CARD Attending Dr: Valeriano King M.D. Ordering Physician: Valeriano King M.D. Date of Service: 11/15/23 Procedure(s): CA echo doppler complete Accession Number(s): [id number] cc: EDMUND TORRES ; Valeriano King M.D. Patient Name: SHEYLA LEONARDO MR#: [id number] : 1935 Exam Date: 11/15/2023 Ordering Doctor: DR Valeriano King M.D. ECHOCARDIOGRAM REPORT PROCEDURE: CA ECHO DOPPLER COMPLETE INDICATIONS: Aortic valve disease, ND, cardiac stent, hypertension, h/o rheumatic fever COMPARISON: None. DESCRIPTION: COMPLETE ECHOCARDIOGRAM Real-time transthoracic echocardiography with 2D, M-mode, spectral and color flow Doppler performed. QUALITY: Technical quality was good. LEFT VENTRICLE: Normal chamber size. Moderate concentric left ventricular hypertrophy. LV EF: Global left ventricular systolic function is normal; visually estimated ejection fraction is 55 to 60%. No significant wall motion abnormalities. DIASTOLIC: Not adequately assessed due to heart rhythm. ATRIAL SEPTUM: Visually appears intact. LEFT ATRIUM: Mild dilatation. RIGHT ATRIUM: Normal chamber size. RIGHT VENTRICLE: Normal chamber size. Normal right ventricular systolic function. TRICUSPID VALVE: Normal mobility and thickness. Moderate regurgitation. Doppler studies reveal moderately (45-60) elevated right sided pressures. RVSP 58 mmHg MITRAL VALVE: Mildly thickened with normal mobility. No evidence of mitral valve stenosis. Mild mitral annular calcification. Moderate mitral regurgitation. AORTIC VALVE: Normal trileaflet appearance. Mildly calcified aortic valve. Mildly diminished mobility. Doppler velocity suggests mild aortic valve stenosis. DVI 0.4, SHILA 1.7 cm2. Trivial aortic regurgitation. AORTIC ROOT: Normal diameter and appearance. Ascending aorta is normal in size. PULMONIC VALVE: Not well visualized. No regurgitation. PERICARDIUM: No evidence of pericardial effusion. IVC: IVC is dilated (2.5 cm) with no collapse. CONCLUSION: 1. Global left ventricular systolic function is normal; visually estimated ejection fraction is 55 to 60% 2. Moderate left ventricular hypertrophy 3. Normal right ventricular size and systolic function 4. The left atrium is mildly dilated 5. Moderate tricuspid regurgitation 6. Moderately elevated right ventricular systolic pressure; RVSP 58 mmHg 7. Moderate mitral regurgitation 8. Mild aortic valve stenosis Adult Echocardiography Procedure Report Left Ventricle LVEDD (3.7 - 5.6 cm): 3.79 cm LVESD (2.2 - 4.0 cm): 3.17 cm LVIVS thickness (0.6 - 1.2 cm): 1.36 cm LVPW thickness (0.5 - 1.0 cm): 1.36 cm LVOT Max Gradient: 3.18 mm[Hg], 2.83 mm[Hg], 3.04 mm[Hg] LVOT Area (cm2): 0.87 m/s Peak Velocity (LVOT): 0.89 m/s, 0.84 m/s, 0.87 m/s Mean Velocity (LVOT): 0.62 m/s LVOT Diameter 2.36 cm Left Atrium LA Volume Index (2D A2C): 41.16 ml/m2 Left Atrium Systolic Dimension: 4.80 cm Mitral Valve Mitral Valve E-Wave Peak Velocity: 1.54 m/s Right Ventricle Aorta AO Root Diam: 3.58 cm Ascending Ao Diam: 3.16 cm Aortic Valve AoV Area (Peak Haile): 1.76 cm2, 1.72 cm2, 1.80 cm2 AoV Area (VTI): 1.73 cm2, 1.74 cm2, 1.82 cm2 Peak Velocity(Antegrade Flow): 2.27 m/s, 2.04 m/s Peak Gradient(Antegrade Flow): 20.53 mm[Hg], 16.65 mm[Hg] Mean Velocity(Antegrade Flow): 1.50 m/s, 1.38 m/s Mean Gradient(Antegrade Flow): 10.58 mm[Hg], 8.90 mm[Hg] Velocity Time Integral: 51.56 cm, 42.08 cm Tricuspid Valve Peak Velocity (Regurgitant Flow): 3.30 m/s, 2.99 m/s Pulmonic Valve Peak Velocity: 0.89 m/s Peak Gradient: 3.14 mm[Hg] Right Atrium Right Atrium Systolic Pressure: 34.54 ml, 34.54 ml Dictated by: Valeriano King M.D. on 11/15/2023 at 17:30 Approved by: Valeriano King M.D. on 11/15/2023 at 17:33 Dictated By: Valeriano King M.D. Signed By: 11/15/23 1734 DD/ 173 TD/TT: Stogy Maker: [facility] Study observation (narrative)[facility] HealthcareCA ECHO DOPPLER COMPLETEOrdered By: Radiologist Radiology on 45-24-7806[facility] Work Phone: Office Visiton 14-61-4618Rkuiar-up [id number] Sheyla Leonardo 1935 F Date Provider Department Center 06/12/2023 VALERIANO NOWAK Family History Problem Relation Age of Onset Coronary artery disease Other Family Status - Relation Status Age at Other Level of Service:20491 AL OFFICE/OUTPATIENT ESTABLISHED LOW [facility]DM [facility] 51-94-2089Tsuekx-up visit [id number] Sheyla Leonardo 1935 F Date Provider Department Center 12/22/2022 VALERIANO NOWAK Family History Problem Relation Age of Onset Coronary artery disease Other Family Status - Relation Status Age at Other Level of Service:04749 AL OFFICE/OUTPATIENT ESTABLISHED LOW MDM 20-29 [facility] HospitalBasic Metabolic Panelon 18-21-7823Sngqm gap [Moles/Vol]16 mmol/PKmyrfu84-53Pgihlgee [facility] SpecialistComment on above: Result Comment: Effective 02/11/2019 reference range changed.Performed By: #### BMP #### [facility] [address] [place], [place] [id number] [Mass/Vol]9.6 mg/dLNormal8.6-10.2[facility] SpecialistComment on above:Performed By: #### BMP #### [facility] [address] [place], [place] [id number] [Moles/Vol]106 mmol/VZkdlmn97-817Jvxuklmz [facility] SpecialistComment on above:Performed By: #### BMP #### [facility] [address], [place] [id number] [Moles/Vol]25 mmol/GFxlblf23-05Wulebflx [facility] SpecialistComment on above:Performed By: #### BMP #### [facility] [address], [place] [id number] [Mass/Vol]1.0 mg/dLNormal0.6-1.4Nortphoenix children's hospitaln [facility] SpecialistComment on above:Performed By: #### BMP #### [facility] [address], [place] [id number] mL/min/1.05k9Apepjr>60Nortphoenix children's hospitaln [facility] SpecialistComment on above:Performed By: #### BMP #### [facility] [address], [place] [id number] mL/min/1.52b8Ezs>60[facility]ortAdena [facility] Electric Meter Repairer Helper Comment on above:Performed By: #### BMP #### [facility] [address], [place] [id number] [Mass/Vol]100 mg/tXVhjx59-50Vqdoaxdv [place] [facility] SpecialistComment on above:Result Comment: For FASTING Glucose --- ADA reference ranges: Normal 65-99 mg/dl Prediabetes 100-125 Diabetes >/= 126Performed By: #### BMP #### [facility] [address], [place] [id number] [Moles/Vol]4.7 mmol/LNormal3.5-5.5NortOhioHealth Shelby Hospital SpecialistComment on above:Performed By: #### BMP #### [facility] [address], [place] [id number] [Moles/Vol]142 mmol/BWnrrus419-171Dxcwbamz [place] [facility] SpecialistComment on above:Performed By: #### BMP #### [facility] [address], [place] [id number] nitrogen [Mass/Vol]27 mg/dLHigh7-25NortOhioHealth Shelby Hospital SpecialistComment on above:Performed By: #### BMP #### [facility] [address], [place] [id number] M/2D COMPLETEon 84-04-8817CGPDQPFVZA M/2D COMPLETE Patient: SHEYLA LEONARDO Exam Date: 01/18/2021 : 1935 Gender:F Ordering : DR VALERIANO KING M.D. Admission #: [id number] Family : Order #: [id number] CLICK HERE TO VIEW EXAM ECHOCARDIOGRAM REPORT PROCEDURE: CARDIO PULMONARY ECHOCARDIO M/2D COMP INDICATIONS: Shortoness of breath, H/O PTCA COMPARISON: None. DESCRIPTION: COMPLETE ECHOCARDIOGRAM Real-time transthoracic echocardiography with 2D, M-mode, spectral and color flow Doppler performed. QUALITY: Technically difficult due to patient's condition. LEFT VENTRICLE: Normal chamber size. Mild concentric left ventricular hypertrophy. LV EF: Normal left ventricular ejection fraction, (>55%). DIASTOLIC: Grade I diastolic dysfunction. ATRIAL SEPTUM: Inadequately seen. LEFT ATRIUM: Mild dilatation. RIGHT ATRIUM: Normal chamber size. RIGHT VENTRICLE: Normal chamber size. Normal systolic function. TRICUSPID VALVE: Normal mobility and thickness. Normal with trivial regurgitation. MITRAL VALVE: Normal mobility and thickness. There is no mitral annular calcification. No mitral regurgitation. AORTIC VALVE: Normal trileaflet appearance. Thickened aortic valve. Normal leaflet mobility. No aortic regurgitation. AORTIC ROOT: Normal diameter and appearance. Ascending aorta is normal in size. PULMONIC VALVE: Not well visualized. No stenosis. No regurgitation. PERICARDIUM: No evidence of pericardial effusion. IVC: Dilated IVC (2.45 cm), with no collapse. CONCLUSION: Global left ventricular systolic function is normal; visually estimated ejection fraction is 55-60%. Mild diastolic dysfunction. Mild concentric left ventricular hypertrophy. Mild left atrial dilation. Right ventricle is normal in size and systolic function. No significant valvular abnormalities. Adult Echocardiography Procedure Report Left Ventricle LVEDD (3.7 - 5.6 cm): 3.30 cm LVESD (2.2 - 4.0 cm): 2.20 cm LVIVS thickness (0.6 - 1.2 cm): 1.19 cm LVPW thickness (0.5 - 1.0 cm): 1.31 cm e': 5.48 cm/s E - e': 19.50 LVOT Area (cm2): 4.91 cm2 LVOT Diameter 2.50 cm Left Ventricular Ejection Fraction: 63.30 % Left Atrium Left Atrium Systolic Dimension: 3.10 cm Left Atrium Systolic Area(A4C): 25.10 cm2 Left Atrium Systolic Volume(A4C): 02564 mm3 Mitral Valve MV E to A Ratio: 0.70 Mitral Valve A-Wave Peak Velocity: 148.00 cm/s Mitral Valve E-Wave Peak Velocity: 107.00 cm/s Deceleration Time: 327 ms Right Ventricle Aorta AO Root Diam: 3.40 cm Aortic Valve AoV Area (Peak Haile): 2.96 cm2 Peak Velocity(Antegrade Flow): 117.00 cm/s Peak Gradient(Antegrade Flow): 5 mm[Hg] Tricuspid Valve Pulmonic Valve Peak Velocity: 126.00 cm/s Peak Gradient: 6 mm[Hg] Right Atrium Dictated by: Valeriano King M.D. on 01/18/2021 at 16:06 Approved by: Valeriano King M.D. on 01/18/2021 at 16:11[facility] HospitalHistory and Physicalon 86-93-3990CGF IP Note OR TranscriptionSt. Francis HospitalOPERATIVE REPORTon 05-93-1741OQHNXNUFV REPORT[address] [address] OPERATIVE REPORTPATIENT NAME: SHEYLA LEONARDO : 1936MED REC NO: [id number] ROOM:ACCOUNT NO: [id number] ADMISSIONDATE: 10/06/2016PROVIDER: Romero AlarconenDATE OF PROCEDURE: 10/06/2016PREOPERATIVE DIAGNOSIS: Intraocular silicone, left eye.POSTOPERATIVE DIAGNOSIS: Intraocular silicone, left eye.PROCEDURE: Pars plana vitrectomy with silicone removal, left eye.ANESTHESIA: Monitored.REASON FOR OPERATION: The patient is an 81-year-old woman whounderwent surgery for macular [facility] She knew that she would not be able to maintain facedownpositioning and therefore we placed silicone in the eye at the time ofsurgery. Her macular hole closed and we are now returning to surgeryto remove the silicone to prevent future possible complications. Sheunderstands risks include bleeding, infection, and retinal detachment.PROCEDURE: The patient was brought to the operating room in goodcondition. She was administered local anesthetic and prepped anddraped in usual fashion. A 25-gauge vitrectomy trocar was placed tothe pars plana in usual quadrants. Infusion was attached to theinferior temporal site. Light pipe and silicone extractor were placedthrough the superior sites. Thesilicone was extracted slowly. Thelarge bubble of silicone was removed with the extractor. I continuedto irrigate for 1 minute to try to remove small bubbles. I then didthree air-fluid exchanges to try to remove all possible bubbles ofsilicone. No retinal tears or detachment were present. No bleedingoccurred. Instruments removed. The trocars removed and the siteswere self-sealing. A 50 mg of cefta zidime was injected to sub-tenon'sin the inferonasal quadrant. The eye was patched in the usualfashion. The patient taken to recovery room in good condition.ROMERO Ramirez SAADEND: 10/06/2016 10:22:22 ZORAIDA/[id number]#: [id number] Doc#: [id number]. Francis Hospital Vital Signs Date TimeVital SignValuePerforming LjxbxjpqiJtncjekb92-26-5906 08:34-0500Body nesvsn278 cmDamag Torres MD Work Phone: [phone] Mary's Hospital of Blue SpringsTwptbhcgth43-69-2868 08:34-0500Diastolic blood ynnnanqa37 mm[Hg]Edmund Torres MD Work Phone: [phone] Mary's Hospital of Blue SpringsKgiuoppvat58-76-9146 08:34-0500Heart rate68 /min Edmund Torres MD Work Phone: [phone] SpringsJlanllslrk81-32-9031 08:34-9962GxX4% (BldA) [Mass fraction]96 %Edmund Torres MD Work Phone: [phone] [facility] Blue SpringsSmnecnmlon10-94-1366 08:34-0500Systolic blood sofgasmd393 mm[Hg]Edmund Torres MD Work Phone: [phone] Mary's Hospital of Blue SpringsOsfqridegv90-97-3235 08:34-0400Body sigelq265 cm Edmund Torres MD Work Phone: [phone] Mary's Hospital of Blue SpringsAmhznzmzil59-12-9310 08:34-0400Body mass index (BMI) [Ratio]52.61 kg/g8RfciovEdmund Torres MD Work Phone: [phone] Mary's Hospital of Blue SpringsLpvahxsaux61-43-9614 08:34-0400Body .72 kgDamag Torres MD Work Phone: NOLJ Eintrinebv59-18-8703 08:34-0400Diastolic blood jmbchikm24 mm[Hg]Edmund Torres MD Work Phone: [facility] Mmkhbxyhtk77-38-7261 08:34-0400Heart rate60 /min Edmund Torres MD Work Phone: NOEW Glptvglnkn96-08-5966 08:34-2971RjB9% (BldA) [Mass fraction]98 %Edmund Torres MD Work Phone: NODT Godssvfiqz49-75-5850 08:34-0400Systolic blood iwsijkht179 mm[Hg]Edmudn Torres MD Work Phone: [facility] Encounters Encounter DateEncounter TypeCare ProviderFacilityStart: 11-14-2024 End: 23-08-4179Vhiktqxea encounterEriNew Mexico Rehabilitation Center Work Phone: noms POPULATION HEALTHComment on above:Med Refill Start: 10-18-2024 End: 21-76-3244Nglfup Bret Torres MD Work Phone: NOFM [place] [facility] MedinceStart: 10-18-2024 End: 71-67-9648Gorfxpbenjamin Torres MD Work Phone: NOYQ [place] [facility] MedinceStart: 10-18-2024 End: 16-71-0385qoxmnguwliCOKMTH B BERRYNot AvailableStart: 09-10-2024 End: 58-47-0429AgsdupDfjbeph Ino OLIVER [place] [facility] MedinceComment on above: Spinal stenosis at L4-L5 level; 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, lumbar region; Displacement of lumbar disc with radiculopathy; Mixed hyperlipidemiaStart: 09-09-2024 End: 95-37-6800BfnvpdWdtnlr B Berry MD Work Phone: NOVS [place] [facility] MedinceComment on above:Spinal stenosis at L4-L5 level; 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, lumbar region; Displacement of lumbar disc with radiculopathyStart: 07-30-2024 End: 30-22-2424HmkxftPoaou Dukles LPNNOMS CI FMComment on above:Spinal stenosis at L4-L5 level; 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, lumbar region; Displacement of lumbar disc with radiculopathyStart: 05-31-2024 End: 61-13-9952UblyqkUmsfk Dukles LPNNOMS CI FMComment on above:Spinal stenosis at L4-L5 level; 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, lumbar region (CMS/HCC); Displacement of lumbar disc with radiculopathyStart: 04-02-2024 End: 33-62-3001VmudioQsagdba Ino SANTOSOMS CI FMComment on above:Spinal stenosis at L4-L5 level; 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, lumbar region (CMS/HCC); Displacement of lumbar disc with radiculopathyStart: 03-11-2024 End: 48-12-7400Zhkien flowsChana Torres MD Work Phone: [facility] CI FMStart: 03-11-2024 End: 30-18-3849Urjmet flowsChana Torres MD Work Phone: [facility] CI FMStart: 03-11-2024 End: 31-95-8620Ucgcq of hemosiderin, Simon Torres MD Work Phone: [facility] Work Phone: Start: 03-11-2024 End: 97-56-4965Qitipgh encounter procedureEdmund Torres MD Work Phone: [facility] CI FMComment on above:Routine general medical examination at health care facility (Primary Dx); ACP (advance care planning); Chronic inflammatory demyelinating polyneuritis (CMS/HCC); Chronic kidney disease, stage 3b (HCC) (CMS/HCC); Pulmonary hypertension, unspecified (CMS/HCC); Morbid (severe) obesity due to excess calories (CMS/HCC); Body mass index (BMI) 50.0-59.9, adult (CMS/HCC); 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 (CMS/HCC)Start: 03-11-2024 End: 18-73-5502xwzjgoyvxySCPPFU B BERRYNot AvailableStart: 12-18-2023 End: 94-70-2391igfzffidirVBPTUSA Health Providence Hospitaltart: 12-11-2023 End: 92-30-9529alqgdvoubtBCKGCleveland Clinic Akron Generaltart: 11-15-2023 End: 35-32-8463Xgmtzyzmb Result EncounterGeneric External Data ProviderNOMS External Department UnsolicitedStart: 11-15-2023 End: 03-12-8447Wmmtlbirx Result EncounterGeneric External Data ProviderNOMS External Department UnsolicitedStart: 11-08-2023 End: 69-03-2298Blislj Bret Torres MD Work Phone: [facility] CI FMStart: 11-08-2023 End: 56-95-0628Vldenb Bret Torres MD Work Phone: [facility] CI FMStart: 11-08-2023 End: 17-32-7232Iljzbe outpatient visit 25 minutesDamag Torres MD Work Phone: [facility] CI FMComment on above:Chronic diastolic heart failure (CMS/HCC) (Primary Dx); Benign essential hypertension (CMS/HCC); Flu vaccine need; 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); Stasis dermatitis of both legs; Mixed hyperlipidemia (CMS/HCC); Stress reaction; Chronic inflammatory demyelinating polyneuropathy (CMS/HCC); Spinal stenosis at L4-L5 level; Class 3 severe obesity due to excess calories with serious comorbidity and body mass index (BMI) of50.0 to 59.9 in adult (CMS/HCC); 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, lumbar region (CMS/HCC); Displacement of lumbar disc with radiculopathy; Chronic kidney disease, stage 3b (HCC) (CMS/HCC); 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 (CMS/HCC)Start: 11-08-2023 End: 06-34-7096cwlylgndbgDXXXSY B BERRYNot AvailableStart: 06-12-2023 End: 86-00-2704olmyivkhaeYIMEProMedica Defiance Regional Hospitaltart: 18-85-4363EgrgwqFwhxxl B Berry MD Work Phone: noMS CI FMComment on above:Benign essential hypertension (CMS/HCC)Start: 12-22-2022 End: 63-82-4240akfvbnefjxOULSProMedica Defiance Regional Hospitaltart: 91-01-2174rmicariymeGG AB TACRAWLEY [facility]ORIAL HOSPITALFacility:G4Bralq: 37-46-6980dzcgrptpioEX EHAB [facility] HOLLYFacility:M9Lsirr: 01-18-2021 End: 62-23-0127dkigilaeutMOSloop Memorial HospitalFacility:S1Sfkjt: 10-06-2016 End: 68-08-6395AyhfklprvaAMBFYN T LASIAKettering Health Miamisburgtart: 08-11-2016 End: 23-19-6237CjrunrilliKJACWWF PHYSICIANFacility:[facility] Procedures DateProcedureProcedure DetailPerforming ClinicianStart: 82-72-7456BO ECHO DOPPLER COMPLETEGeneric External Data ProviderStart: 41-59-0684ZMAGLEVHS PATIENT ROMERO NEDIMITRYENStart: 13-90-0296HJFOSNHP OXYGEN THERAPY PROTOCOLPHILIP RICARDO Start: 88-93-4156LCSWQCTKET W/GFR POINT OF CAREPHILIP NELSENStart: 10-06-2016 POCT GLUCOSEPHILIP NEENStart: 18-25-8765JDHHAYDQA (POC)ROMERO NELSENStart: 57-54-7314GPLVUTSUWMCDY NELSENStart: 56-54-7806Zjlftjcmca pulse oximetryPHILIP NELSENStart: 11-29-8637GEHXNYDQQ DEEP BREATHING AND COUGHINGPHILIP NELSENStart: 27-57-3604KMGSZFN COMMUNICATIONPHILIP NELSENStart: 72-39-8808RMZ CHEM8 INCLUDES CALC. ANION GAPPHILIP NELSENStart: 91-39-6834IRCDZGCI OXYGEN THERAPY PROTOCOL ROMERO [facility]ENN HOSPITALtart: 95-31-4329YYQIGG PHYSICIAN (SPECIFY)ROMERO NELSENStart: 01-47-0263XDDNW SIGNSPHILIP RICARDO Plan of Treatment DateCare ActivityDetailAuthorStart: 04-17-2025 End: 52-77-4071Evzyiay encounter jgswcxxke67/12/2026 9:30 AM EDT Office Visit [facility] [place] [facility] [address] [place] [address] Edmund Torres MD [address] [place] [address] [facility] [place] [facility] MedinceStart: 10-18-2024 End: 44-83-2501Dlhsadg encounter procedureNOMS [place] Johnston MedinceComment on above:ArrivedStart: 56-88-4138NYGGK-19 Vaccine ( season)COVID-19 Vaccine ()[facility]OMS HealthcareStart: 88-94-5426Ennqcjwkw vaccinationInfluenza Vaccine (#1)[facility] HealthcareStart: 06-10-2024 End: 35-22-0397Hnmonpswxokt consultation with vhelujn8806/10/2024 9:45 AM EDT Telemedicine [facility] [address] [place] [address] Edmund Torres MD [address] [place] [address] [facility] CI FMStart: 03-11-2024 End: 51-13-9549Fukvrln encounter rxuhxxvyh27/03/2025 8:30 AM EST Office Visit [facility] [address] [place] [address] Edmund Torres MD [address] [place] [address] ArrivedNOMS CI FMComment on above:ArrivedStart: 11-08-2023 End: 24-44-1806Ovqapxkhdfaec metabolic 2000 panel - Serum or PlasmaComprehensive metabolic panel Lab Routine Chronic diastolic heart failure (CMS/HCC) Coronary arterydisease involving [place] coronary artery of [place] heart with angina pectoris (CMS/HCC) Expected: 11/08/2023 (Approximate), Expires: 11/07/2024NOMS HealthcareComment on above:Expected: 11/08/2023 (Approximate), Expires: 11/07/2024Start: 11-08-2023 End: 21-72-2545Udfnu 1996 panel - Serum or PlasmaLipid panel Lab Routine Mixed hyperlipidemia ([facility]) Expected: 11/08/2023 (Approximate), Expires:11/07/2024 NOM[facility] HealthcareComment on above:Expected: 11/08/2023 (Approximate), Expires: 11/07/2024Start: 11-08-2023 End: 68-43-6542LKE W/REFLEX TO FT4TSH W/REFLEX TO FT4 Lab Routine Class 3 severe obesity due to excess calories with serious comorbidity and body mass index (BMI) of 50.0 to 59.9 in adult ([facility]) Expected: 11/08/2023 (Approximate), Expires: 11/07/2024[facility] Work Phone: Comment on above:Expected: 11/08/2023 (Approximate), Expires: 11/07/2024Start: 11-08-2023 End: 85-67-0219Jjodeaj encounter roofgcwsb53/02/2024 8:30 AM EDT Office Visit [facility] [address] [facility] [address] [place] [address] Edmund Torres MD [address] [facility] [address] [place] [address] ArrivedNOMS CI FMComment on above:ArrivedStart: 10-08-2023 Influenza vaccinationInfluenza Vaccine (#1)[facility]OM[facility] HealthcareStart: 05-08-2023 End: 44-51-6979Eptanff encounter vxqdggikb77/01/2024 9:00 AM EDT Office Visit [facility] [address] [facility] [address] [place] [phone] Edmund Torres MD [address] [facility] [address] [place] [address] [facility] CI FMStart: 66-64-0892YYlP/Tdap/Td Vaccines (1 - Tdap) DTaP/Tdap/Td Vaccines (1 - Tdap)[facility] HealthcareCBC W Auto Differential panel - BloodCBC and differential Lab Routine Chronic diastolic heart failure (CMS/HCC) 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) Ordered: 11/08/2023[facility] HealthcareComment on above: Ordered: 11/08/2023 Immunizations Immunization DateImmunizationNotesCare RcuciggqMxafnhlu84-91-3068Hcystzcra, High-dose Seasonal, Quadrivalent, Preservative Margarette Torres MD Work Phone: [phone] [place], [place] [address]Eknjtwxajl33-11-3068llolaubhn virus vaccine, unspecified formulationEdmund Torres MD Work Phone: [phone] [place], [place] [address]Xsieccwoey35-19-5248qzispodzi, high dose seasonal, preservativeRossy Torres MD Work Phone: [phone] [place], [place] [address]Suuykhsajq03-59-2537bvgkwjvlo virus vaccine, unspecified formulationEdmund Torres MD Work Phone: [phone] [place], [place] [address]Dauwasxcfm53-30-2309tsgxffqof, high dose seasonal, preservativeRossy Torres MD Work Phone: [phone] [place], [place] [address]Vdhrjgqvys05-29-8430wqxgajqmo, high dose seasonal, preservativeRossy Torres MD Work Phone: [phone] [place], [place] [address]Dcphgqnzog84-52-3592bvepknfha, high dose seasonal, preservativeRossy Torres MD Work Phone: [phone] [place], [place] [address]Fmxwhzexki80-34-5327isvsmxqbr, high dose seasonal, preservativeRossy Torres MD Work Phone: [phone] [place], [place] [address]Nesvueylsh78-16-0536Zbsrpqcus, High-dose Seasonal, Quadrivalent, Preservative Margarette Torres MD Work Phone: [phone] [place], [place] [address]Dctzrsdvhl68-15-1032Eswheakms, High-dose Seasonal, Quadrivalent, Preservative Margarette Torres MD Work Phone: [phone] [place], [place] [address]Xazyfsniqx17-92-7648aicegztmhwhk polysaccharide vaccine, 23 Igor Torres MD Work Phone: [phone] [place], [place] [address]Jhxnxeryes50-20-7118Lfezuhkep, High-dose Seasonal, Quadrivalent, Preservative Margarette Torres MD Work Phone: [phone] [place], [place] [id number] conjugate vaccine, 13 Igor Torres MD Work Phone: [phone] [address] [place], [place] [address]Vojurjxcne11-36-7269Mtogvamzy, High-dose Seasonal, Quadrivalent, Preservative Margarette Torres MD Work Phone: [phone] [address] [place], [place] [address]Hujjdnubhf25-34-4734rsvlyhog influenza, intradermal, preservative Margarette Torres MD Work Phone: [phone] [place], [place] [address]Aiihfvjesr88-75-9249ijcsbffm influenza, intradermal, preservative Margarette Torres MD Work Phone: [phone] [place], [place] [address]Gsqqemwowy01-34-8108qekjygdrk, seasonal, injectable, preservative Margarette Torres MD Work Phone: [phone] [place], [place] [address]Bqkvnudemo82-00-6110qjwemsfkinpc polysaccharide vaccine, 23 Igor Torres MD Work Phone: [phone] [place] [address] Payers DatePayer CategoryPayerPolicy [id number] Health InsuranceDELANO [facility] .[id number] [id number] 1992Medicare [id number] [id number] 1960 Vfil-[id number] [id number] [id number] [id number] 2..[id number] [id number] [id number] Social History DateTypeDetailFacilityStart: 03-10-9748Itqqqca smoking status NHISNever smoked tobaccoNOMS HealthcareStart: 16-10-8535Ddchrfr use and exposureSmokeless tobacco non-userNOMS HealthcareStart: 10-12-2022 End: 19-59-9839Zqhafnj intakeLifetime non-drinker (finding)NOMS HealthcareStart: 10-12-2022 End: 94-29-8465Tahfecl of Social functionNOMS HealthcareStart: 10-12-2022 End: 22-91-6292Poayvmn use panelNOMS HealthcareStart: 19-52-8887Aec Assigned At BirthNot on fileNOMS HealthcareStart: 62-36-7645Vixizpb Methodist ServicesNot on fileNOMS HealthcareDo you belong to any clubs or organizations such as christian groups, unions, fraternal or athletic groups, or school groups?NoNOMS Healthcare Are you now , , , , never or living with a partner?[facility] Functional Status FxipHgdadbgvlhThqipdNreofgvg30-28-7972Cbvchdn Health Questionnaire 2 item (PHQ- 2) [Reported][facility] Clinical Notes 12-22-2022 to 11-15-2024 Note Date & MmirXuzrOolpwijj85-41-6637 Telephone encounter Note* Telephone Encounter - Edmund Torres MD - 11/15/2024 12:44 PM EDT Sent. [facility]Pmtfmvinah84-01-8926 Miscellaneous Notes* Telephone Encounter - Edmund Torres MD - 11/15/2024 12:44 PM EDT Sent. documented in this encounterMercy hospital springfieldKbvoeupdyo07-64-1461 Telephone encounter Note* Telephone Encounter - Sunita Mckinnon MA - 09/10/2024 10:23 AM EDT [address] [address]. [place], [place]. I need to have my niacin filled and my tying all3 and I am going to make my daughter is going to make an appointment for me. It is just she can drive it right now. She had surgery, so I will schedule an appointment as soon as she can drive. Thank you. [facility]Nshrfhwgpv14-51-9179 Miscellaneous Notes* Telephone Encounter - Sunita Mckinnon MA - 09/10/2024 10:23 AM EDT [address] [address]. [place], [place]. I need to have my niacin filled and my tying all3 and I am going to make my daughter is going to make an appointment for me. It is just she can drive it right now. She had surgery, so I will schedule an appointment as soon as she can drive. Thank you. documented in this [facility]06-24-2025 Telephone encounter Note* Telephone Encounter - Radha Conroy LPN - 07/30/2024 10:51 AM EDT Pt son is going to call office and set her up for a televisit [facility]Ksabuxrldj38-76-2739 Miscellaneous Notes* Telephone Encounter - Radha Conroy LPN - 07/30/2024 10:51 AM EDT Pt son is going to call office and set her up for a televisit documented in this [facility]04-25-2025 Telephone encounter Note* Telephone Encounter - LATHA Sainz - 05/31/2024 12:39 PM EDT OARRS reviewed, Rx sent into patient's pharmacy. [facility]fieldDzlwglfcbv33-72-1257 Miscellaneous Notes* Telephone Encounter - LATHA Sainz - 05/31/2024 12:39 PM EDT OARRS reviewed, Rx sent into patient's pharmacy. documented in this [facility]02-25-2025 Telephone encounter Note* Telephone Encounter - LATHA Sainz - 04/02/2024 5:02 PM EST OARRS reviewed, Rx sent into patient's pharmacy. [facility] [id number] Miscellaneous Notes* Telephone Encounter - LATHA Sainz - 04/02/2024 5:02 PM EST OARRS reviewed, Rx sent into patient's pharmacy. documented in this encounterMercy hospital springfieldRhnwzcwhps06-89-0046 History of Present illness Narrative* Edmund Torres MD - 03/11/2024 8:30 AM EST Images from the original note were not included. Subjective : Chief Complaint: Sheyla Leonardo is an 88 y.o. female here for an annual wellness visit. I have reviewed and reconciled the history and medication list with the patient today. Current Outpatient Medications Medication Sig Dispense Refill acetaminophen-codeine (Tylenol w/ Codeine #3) 300-30 MG tablet Take 1 tablet by mouth every 6 (six)hours if needed for moderate pain 120 tablet 2 atorvastatin (Lipitor) 40 MG tablet Take 40 mg by mouth in the morning. bumetanide (Bumex) 1 MG tablet Take 1 mg by mouth in the morning. carvedilol (Coreg) 25 MG tablet TAKE 1 TABLET BY MOUTH IN THE MORNING AND 1 TABLET BY MOUTH BEFORE BEDTIME 180 tablet 3 cholecalciferol 125 MCG (5000 UT) capsule Take 5,000 Units by mouth Daily dapagliflozin (Farxiga) 10 MG Take 10 mg by mouth Daily diclofenac sodium 1 % gel APPLY 4 GRAMS TO RIGHT SHOULDER 4 TIMES PER DAY 300 g 1 DULoxetine (Cymbalta) [address] capsule Take 1 capsule (30 mg) by mouth Daily Do not crush or chew. 90 capsule 3 gabapentin (Neurontin) 300 MG capsule Take 300 mg by mouth in the morning and 300 mg in the eveningand 300 mg before bedtime. isosorbide mononitrate ER (Imdur) 30 MG 24 hr tablet Take 1 tablet (30 mg) by mouth in the morning.100 tablet 3 lisinopril 40 MG tablet TAKE 1 TABLET BY MOUTH IN THE MORNING 90 tablet 3 minocycline (Dynacin) 100 MG tablet Take 100 mg by mouth in the morning and 100 mg before bedtime. Niacin-Inositol (No Flush Niacin) 400-100 MG capsule Take 1 capsule by mouth Daily 90 capsule 3 pantoprazole (ProtoNix) 40 MG EC tablet Take 40 mg by mouth in the morning. Take before meals. Do not crush, chew, or split.. potassium chloride CR (Klor-Con) 10 MEQ ER tablet Take 10 mEq by mouth every 12 (twelve) hours. ranolazine (Ranexa) 500 MG 12 hr tablet TAKE 1 TABLET BY MOUTH TWICE A DAY 180 tablet 1 No current facility-administered medications for this visit. Review of Systems List of current healthcare providers: Patient Care Team: Edmund Torres MD as PCP - General (Internal Medicine) Edmund Torres MD as PCP - ACO Re[employer] Medicare Annual Visit Over the past 2 weeks, how often have you been bothered by any of the following problems? Little interest or pleasure in doing things: Not at all Feeling down, depressed, or hopeless: Not at all Patient Health Questionnaire-2 Score: 0 [place] Fall Risk History of Falling, Immediate or Within 3 Months: Yes Secondary Diagnosis: No Ambulatory Aid: Crutches/cane/walker Health Risk Assessment Form Do you need help eating, bathing, using the toilet, dressing, or getting around your home?: No Can you prepare your own meals?: Yes Can you do your own housework without help?: No Can you shop for groceries or clothes without help?: No Do you exercise for about 20 minutes 3 or more days a week?: No How confident are you that you can control and manage most of your health problems?: Somewhat confident Can you mange your money, credit cards and accounts, pay bills and taxes?: No Cognitive Screening Three Word Registration: Apple, Watch, Vicki Clock Drawing: Normal Clock - 2 Three Word Recall: 1/3 words correct - 1 Total Score (0-5 Points): 3 Pain Assessment Pain Score: 7 Advance Care Planning Do you have a living will?: Yes Do you have a medical power of zig zag stitcher?: Yes Who is your medical power of zig zag stitcher?: daughter Objective : BP 136/82 Pulse 68 Ht 5' 3 SpO2 96% BMI 52.61 kg/m No results found. Physical Exam Constitutional: General: She is not in acute distress. Appearance: She is well-developed. She is obese. HENT: Head: Normocephalic and atraumatic. Eyes: General: No scleral icterus. Conjunctiva/sclera: Conjunctivae normal. Cardiovascular: Rate and Rhythm: Normal rate and regular rhythm. Heart sounds: Normal heart sounds. No murmur heard. Pulmonary: Effort: Pulmonary effort is normal. No respiratory distress. Breath sounds: Normal breath sounds. No wheezing, rhonchi or rales. Skin: General: Skin is warm and dry. Neurological: General: No focal deficit present. Mental Status: She is alert and oriented to person, place, and time. Gait: Gait abnormal. Comments: Rolling walker for ambulation Psychiatric: Mood and Affect: Mood normal. Behavior: Behavior normal. Assessment/Plan : The following health maintenance schedule was reviewed with the patient and provided in printed form in the after visit summary: Health Maintenance Topic Date Due Influenza Vaccine Completed Pneumococcal Vaccine: 65+ Years Completed Advance Care Planning Patient agreed to discuss advance care planning at today's wellness visit. We discussed that an advance directive is a legal document that only goes into effect if the patient is incapacitated and unable to speak for himself or herself. This would help healthcare providers to ensure that the patient gets the care that he or she wishes to receive. The goal is to provide a patient with the best possible quality of life. Encouraged patient to obtain a living will and durable power of zig zag stitcher for healthcare. We discussed telling meyer people about their advance directives such as close family members, and requested a copy to scan into the patient's EHR. An advance directive packet was offered to the patient. Assessment/Plan Diagnoses and all orders for this visit: Routine general medical examination at [facility] care facility - Reviewed all relevant preventative screenings with the patient in detail. Medicare Wellness form completed and will be scanned into patient's chart. All needed testing was ordered. Will continue with yearly Medicare Wellness exams. 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 No orders of the defined types were placed in this encounter. Electronically signed by Edmund Torres MD on March 11, 2024 documented in this encounterMercy hospital [id number] [facility] Chief Complaint: Patient here for 6 mo follow up CAD, hypertension, HFpEF, and valve disorder. Had routine echo last month, as well as labs w/ lipid panel. MELENDEZ is worsening at times , but chest pain has resolved. She's fallen a few times since last visit, but denies lightheadedness/syncope. HPI: Sheyla Leonardo is a 88 y.o. female With coronary artery disease, hypertension, [...] of them live in the area. UPDATE 12/11/2023 Cardiology ROS: Review of Systems Cardiovascular: Positive for dyspnea on exertion (worsening at times ) and leg swelling (usually resolves by morning). Musculoskeletal: Positive for falls and muscle weakness. All other systems reviewed and are negative. Past Medical History She has a past medical history of CHF (congestive heart failure) (CMS/HCC), Coronary artery disease, Hyperlipidemia, and Hypertension. Surgical History She [...] Coronary artery disease Other Allergies Levonorgestrel-ethinyl estrad, Oxaprozin, and Sertraline Medications Current Outpatient Medications: acetaminophen-codeine (Tylenol w/ Codeine #3) 300-30 mg tablet, Take 300 tablets by mouth every 6 (six) hours if needed., Disp: , Rfl: atorvastatin (Lipitor) 40 mg tablet, Take 1 tablet (40 mg) by mouth in the morning., Disp: 90 tablet, Rfl: 3 bumetanide (Bumex) 1 mg tablet, Take 1 tablet (1 mg) by mouth in the morning., Disp: 90 tablet, Rfl: 3 carvedilol (Coreg) 25 mg tablet, Take 1 tablet (25 mg) by mouth every 12 (twelve) hours., Disp: 180 tablet, Rfl: 3 cholecalciferol (Vitamin D-3) 125 MCG (5000 UT) capsule, Take 5,000 Units by mouth in the morning., Disp: , Rfl: diclofenac (Voltaren) 1 % topical gel, Apply [...] Rfl: pantoprazole (ProtoNix) 40 mg EC tablet, Take 1 tablet (40 mg) by mouth before breakfast. Do not crush, chew, or split., Disp: 90 tablet, Rfl: 3 potassium chloride CR (Klor-Con) 10 mEq ER tablet, TAKE 1 TABLET TWICE A DAY BY ORAL ROUTE FOR 90 DAYS., Disp: 180 tablet, Rfl: 3 ranolazine (Ranexa) 500 mg 12 hr tablet, Take 1 tablet (500 mg) by mouth in the morning and at bedtime., Disp: 180 tablet, Rfl: 3 Last Recorded Vitals BP 148/70 (BP Location: Left wrist, Patient Position: Sitting) Pulse 57 Ht 1.575 m (5' 2 ) SpO2 99% BMI 52.49 kg/m??? Physical Examination: GENERAL: alert and oriented x3, [...] 2, moderate diastolic dysfunction. Moderate tricuspid regurgitation. RVSP 68 mmHg. Mild mitral regurgitation. Mild aortic valve stenosis. Echocardiogram 11/2023: Global left ventricular systolic function is normal; visually estimated ejection fraction is 55 to 60% Moderate left ventricular hypertrophy Normal right ventricular size and systolic function The left atrium is mildly dilated Moderate tr (more content not included)...[facility] 11-08-2023 History of Present illness Narrative* Edmund Torres MD - 11/08/2023 8:30 AM EDT HPI Follow-up Additional comments: Pain med Med Refill Additional comments: Cymbalta--[facility] Last edited by Radha Conroy LPN on 11/08/2023 8:42 AM. Subjective Patient ID: Sheyla Leonardo is a 88 y.o. female who presents for Follow-up (Pain med), Hypertension, Med Refill (Cymbalta--[facility] [place]), and Fall. Hypertension Patient is here for follow-up of elevated blood pressure. She is not exercising Cardiac symptoms: chest pain.--pt went to hospital for CP was discharged home heart was ok she has appt to see cardiology in 2 weeks for follow up. Patient denies irregular heart beat, near-syncope, orthopnea, palpitations, paroxysmal nocturnal dyspnea, syncope, and tachypnea. Cardiovascular risk factors: advanced age (older than 55 for men, 65 for women), hypertension, and sedentary lifestyle. Pt has had 3-4 falls at home in last few months states she just lost her balance did not go to Erafter any falls Denies LOC Hypertension Pertinent negatives include no chest pain, palpitations or shortness of breath. Med Refill Pertinent negatives include no chest pain. Fall Current Outpatient Medications on File Prior to Visit Medication Sig Dispense Refill atorvastatin (Lipitor) 40 MG tablet Take 40 mg by mouth in the morning. bumetanide (Bumex) 1 MG tablet Take 1 mg by mouth in the morning. carvedilol (Coreg) 25 MG tablet TAKE 1 TABLET BY MOUTH IN THE MORNING AND 1 TABLET BY MOUTH BEFORE BEDTIME 180 tablet 3 cholecalciferol 125 MCG (5000 UT) capsule Take 5,000 Units by mouth Daily diclofenac sodium 1 % gel APPLY 4 GRAMS TO RIGHT SHOULDER 4 TIMES PER DAY 300 g 1 gabapentin (Neurontin) 300 MG capsule Take 300 mg by mouth in the morning and 300 mg in the eveningand 300 mg before bedtime. isosorbide mononitrate ER (Imdur) 30 MG 24 hr tablet Take 1 tablet (30 mg) by mouth in the morning.100 tablet 3 minocycline (Dynacin) 100 MG tablet Take 100 mg by mouth in the morning and 100 mg before bedtime. Niacin-Inositol (No Flush Niacin) 400-100 MG capsule Take 1 capsule by mouth Daily 90 capsule 3 pantoprazole (ProtoNix) 40 MG EC tablet Take 40 mg by mouth in the morning. Take before meals. Do not crush, chew, or split.. potassium chloride CR (Klor-Con) 10 MEQ ER tablet Take 10 mEq by mouth every 12 (twelve) hours. ranolazine (Ranexa) 500 MG 12 hr tablet TAKE 1 TABLET BY MOUTH TWICE A DAY 180 tablet 1 [DISCONTINUED] acetaminophen-codeine (Tylenol w/ Codeine #3) 300-30 MG tablet Take 1 tablet by mouth every 6 (six) hours if needed for moderate pain 120 tablet 2 [DISCONTINUED] DULoxetine (Cymbalta) [address] capsule Take 1 capsule (30 mg) by mouth Daily Do not crush or chew. 90 capsule 2 lisinopril 40 MG tablet Take 1 tablet (40 mg) by mouth in the morning. 90 tablet 3 No current facility-administered medications on file prior to visit. I have reviewed and reconciled the history and medication list with the patient today. Allergies Allergen Reactions Levonorgestrel-Ethinyl Estrad Other reaction(s): Other (See Comments) WATERY ITCHY EYES, RUNNY NOSE Octacosanol Unknown WATERY ITCHY EYES, RUNNY NOSE Oxaprozin Unknown Sertraline Unknown Social History Tobacco Use Smoking status: Never Smokeless tobacco: Never Substance Use Topics Alcohol use: Never Family History Problem Relation Name Age of Onset Heart disease Mother Hypertension Mother Stroke Father Heart disease Father Past Medical History: Diagnosis Date Allergic Arthritis Hyperlipemia (CMS/HCC) Hypertension (CMS/HCC) Obesity Peripheral neuropathy Rosacea Past Surgical History: Procedure Laterality Date ANGIOPLASTY 2006 CHOLECYSTECTOMY CORONARY ANGIOPLASTY WITH STENT PLACEMENT 2011 rca ORIF WRIST FRACTURE Left 2016 TONSILLECTOMY Visit Vitals BP 134/74 Pulse 60 Ht 5' 3 Wt 297 lb SpO2 98% BMI 52.61 kg/m Smoking Status Never BSA 2.45 m Review of Systems Respiratory: Negative for shortness of breath. Cardiovascular: Negative for chest pain and palpitations. Objective Physical Exam Constitutional: General: She is not in acute distress. Appearance: She is well-developed. She is obese. HENT: Head: Normocephalic and atraumatic. Eyes: General: No scleral icterus. Conjunctiva/sclera: Conjunctivae normal. Cardiovascular: Rate and Rhythm: Normal rate and regular rhythm. Heart sounds: Normal heart sounds. No murmur heard. Pulmonary: Effort: Pulmonary effort is normal. No respiratory distress. Breath sounds: Normal breath sounds. No wheezing, rhonchi or rales. Skin: General: Skin is warm and dry. Neurological: General: No focal deficit present. Mental Status: She is alert and oriented to person, place, and time. Gait: Gait abnormal. Comments: Rolling walker for ambulation Psychiatric: Mood and Affect: Mood normal. Behavior: Behavior normal. Assessment/Plan Diagnoses and all orders for this visit: Chronic diastolic heart failure (CMS/HCC) - Comprehensive metabolic panel; Future - CBC and differential - No current active congestive heart failure. Dyspnea at exertion, but not at rest. No evidence of pulmonary edema. Medications unchanged. Benign essential hypertension (CMS/HCC) Flu vaccine need - Influenza, high-dose seasonal, quadrivalent, PF ([id number]) (Fluzone High Dose [place] 0.7mL dose) Coronary artery disease involving [place] coronary artery of [place] heart with angina pectoris ([facility]/HCC) - Comprehensive metabolic panel; Future - CBC and differential Stasis dermatitis of both legs Mixed hyperlipidemia (CMS/HCC) - Lipid panel; Future Stress reaction - DULoxetine (Cymbalta) [address] capsule; Take 1 capsule (30 mg) by mouth Daily Do not crush or chew. 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 Patient will continue to be required to be seen in our office at least every three months for monitoring. At each follow up visit I will reassess the patient's need for the medication. Patient is to have this medication prescribed only through this office. Failure to follow the rules and regulations will result in tapering and discontinuation of medications if applicable. Patient verbalized understanding. OARRS Report was reviewed for this patient. 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 documented in this encounterMercy hospital [id number] [facility] Chief Complaint: Patient here for 6 mo follow up CAD, hypertension, HFpEF, and valve disorder. Says her MELENDEZ and LE edema are unchanged from visit 6 months ago. HPI: Sheyla Leonardo is a 88 y.o. female With coronary artery disease, hypertension, [...] all of them live in the area. Cardiology ROS: Review of Systems Cardiovascular: Positive for dyspnea on exertion and leg swelling (resolves by morning). Musculoskeletal: Positive for falls and muscle weakness. All other systems reviewed and are negative. Past Medical History She has a past medical history of CHF (congestive heart failure) (CMS/HCC), Coronary artery disease, Hyperlipidemia, and Hypertension. Surgical History She [...] Coronary artery disease Other Allergies Levonorgestrel-ethinyl estrad, Oxaprozin, and Sertraline Medications Current Outpatient Medications: acetaminophen-codeine (Tylenol w/ Codeine #3) 300-30 mg tablet, Take 300 tablets by mouth every 6 (six) hours if needed., Disp: , Rfl: atorvastatin (Lipitor) 40 mg tablet, TAKE 1 TABLET BY MOUTH EVERY DAY, Disp: 90 tablet, Rfl: 3 bumetanide (Bumex) 1 mg tablet, TAKE 1 TABLET BY MOUTH EVERY DAY, Disp: 90 tablet, Rfl: 3 carvedilol (Coreg) 25 mg tablet, Take 25 mg by mouth every 12 (twelve) hours., Disp: , Rfl: diclofenac (Voltaren) 1 % topical gel, Apply topically if needed in the morning, at noon, in the evening, and at bedtime for pain., Disp: , Rfl: ergocalciferol (Vitamin D-2) 1.25 MG (45898 Units) capsule, Take 5,000 Units by mouth every 14 (fourteen) days., Disp: , Rfl: gabapentin (Neurontin) 300 mg capsule, Take 300 mg by mouth in the morning, at noon, and at bedtime., Disp: , Rfl: isosorbide mononitrate ER (Imdur) 30 mg 24 hr tablet, TAKE 1 TABLET BY MOUTH EVERY DAY (Patient not taking: Reported on 12/22/2022), Disp: 90 tablet, Rfl: 3 isosorbide mononitrate ER (Imdur) 60 mg 24 hr tablet, Take 1 tablet (60 mg) by mouth in the morning. Do not crush or chew., Disp: 90 tablet, Rfl: 3 lisinopril 40 mg tablet, TAKE 1 TABLET BY MOUTH EVERY DAY, Disp: 90 tablet, Rfl: 1 minocycline 100 mg capsule, Take 100 capsules by mouth in the morning., Disp: , Rfl: niacin, inositol niacinate, 400 mg niacin (500 mg) capsule, Take 400 mg by mouth 1 (one) time each day., Disp: , Rfl: pantoprazole (ProtoNix) 40 mg EC tablet, Take 1 tablet (40 mg) by mouth before breakfast. Do not crush, chew, or split., Disp: 90 tablet, Rfl: 3 potassium chloride CR (Klor-Con) 10 mEq ER tablet, TAKE 1 TABLET TWICE A DAY BY ORAL ROUTE FOR 90 DAYS., Disp: 180 tablet, Rfl: 3 ranolazine (Ranexa) 500 mg 12 hr tablet, Take 500 mg by mouth in the morning and at bedtime., Disp: , Rfl: Last Recorded Vitals BP 142/74 (BP Location: Right wrist, Patient Position: Sitting) Pulse 75 Ht 1.575 m (5' 2 ) Wt 130 kg (287 lb) SpO2 98% BMI 52.49 kg/m??? Physical Examination: GENERAL: alert and oriented x3, [...] 2, moderate diastolic dysfunction. Moderate tricuspid regurgitation. RVSP 68 mmHg. Mild mitral regurgitation. Mild aortic valve stenosis. Assessment: Coronary atherosclerosis Hypertension Heart failure with preserved ejection fraction Moderate tricuspid regurgitation Severely elevated right ventricular systolic pressure Mild aortic valve stenosis Mild mitral regurgitation Dyslipidemia Morbid obesity Plan: Continue guideline directed medical therapy for coronary artery disease including aspirin, moderate intensity statin therapy, a beta-mohsen and an a (more content not included)...[facility]02-05-2024 Telephone encounter Note* Telephone Encounter - LATHA Sainz - 03/13/2023 7:57 AM EST [id number] Miscellaneous Notes* Telephone Encounter - LATHA Sainz - 03/13/2023 7:57 AM EST sent [id number] Chief Complaint: Patient here for follow up echo. Pantoprazole was added and isosorbide was increased at last visit in Oct 2022. She states she has not had any more episodes of chest pain and she's doing well. Thinks it was stress related. HPI: Sheyla Leonardo is a 87 y.o. female With a history of coronary artery disease, heart failure with preserved ejection fraction and gastroesophageal reflux disease; she is here after recent hospital visit for chest pain . She states that she has had 2 or 3 episodes over the past several months. These typically occur at rest. She describes epigastric discomfort that radiates underneath the right breast and to her scapula. It also sometimes radiates to the throat and jaw. It is unrelated to exertion. She is short of breath with exertion and feels this may have worsened over the past 6 months or so. She sleeps in a recliner. She denies paroxysmal external dyspnea. She has chronic lower extremity edema. Pertinently, she has been on minocycline for a while apparently related to a skin infection. Update 12/22/2022: Doing well. No further chest pain. Feels this was related to stress at the time. Cardiology ROS: Review of Systems Cardiovascular: Positive for dyspnea on exertion, leg swelling (resolves by morning) and palpitations ( once in awhile ). All other systems reviewed and are negative. Past Medical History She has a past medical history of CHF (congestive heart failure) ([facility]), Coronary artery disease, Hyperlipidemia, and Hypertension. Surgical History She [...] Coronary artery disease Other Allergies Levonorgestrel-ethinyl estrad, Oxaprozin, and Sertraline Medications Current Outpatient Medications: acetaminophen-codeine (Tylenol w/ Codeine #3) 300-30 mg tablet, Take 300 tablets by mouth every 6 (six) hours if needed., Disp: , Rfl: atorvastatin (Lipitor) 40 mg tablet, TAKE 1 TABLET BY MOUTH EVERY DAY, Disp: 90 tablet, Rfl: 3 bumetanide (Bumex) 1 mg tablet, TAKE 1 TABLET BY MOUTH EVERY DAY, Disp: 90 tablet, Rfl: 3 carvedilol (Coreg) 25 mg tablet, Take 25 mg by mouth every 12 (twelve) hours., Disp: , Rfl: diclofenac (Voltaren) 1 % topical gel, Apply topically if needed in the morning, at noon, in the evening, and at bedtime for pain., Disp: , Rfl: ergocalciferol (Vitamin D-2) 1.25 MG (81971 Units) capsule, Take 5,000 Units by mouth every 14 (fourteen) days., Disp: , Rfl: gabapentin (Neurontin) 300 mg capsule, Take 300 mg by mouth in the morning, at noon, and at bedtime., Disp: , Rfl: isosorbide mononitrate ER (Imdur) 30 mg 24 hr tablet, TAKE 1 TABLET BY MOUTH EVERY DAY, Disp: 90 tablet, Rfl: 3 isosorbide mononitrate ER (Imdur) 60 mg 24 hr tablet, Take 1 tablet (60 mg) by mouth in the morning. Do not crush or chew., Disp: 90 tablet, Rfl: 3 lisinopril 40 mg tablet, TAKE 1 TABLET BY MOUTH EVERY DAY, Disp: 90 tablet, Rfl: 1 minocycline 100 mg capsule, Take 100 capsules by mouth in the morning., Disp: , Rfl: niacin, inositol niacinate, 400 mg niacin (500 mg) capsule, Take 400 mg by mouth 1 (one) time each day., Disp: , Rfl: pantoprazole (ProtoNix) 40 mg EC tablet, Take 1 tablet (40 mg) by mouth before breakfast. Do not crush, chew, or split., Disp: 90 tablet, Rfl: 3 potassium chloride CR (Klor-Con) 10 mEq ER tablet, TAKE 1 TABLET TWICE A DAY BY ORAL ROUTE FOR 90 DAYS., Disp: 180 tablet, Rfl: 3 ranolazine (Ranexa) 500 mg 12 hr tablet, Take 500 mg by mouth in the morning and at bedtime., Disp: , Rfl: Last Recorded Vitals BP 123/61 (BP Location: Left wrist, Patient Position: Sitting) Pulse 62 Ht 1.575 m (5' 2 ) Wt 133 kg (293 lb) SpO2 99% BMI 53.59 kg/m??? Physical Examination: GENERAL: alert and oriented x3, [...] extremities. PSYCH: appropriate mood, affect, and judgement. Investigations: Echocardiogram 11/2022: Conclusion: Global left ventricular systolic function is normal; visually estimated ejection fraction is 60 to 65% The right ventricle is normal in size and systolic function Grade 2, moderate diastolic dysfunctio (more content not included)...[facility] Benign essential hypertension (CMS/HCC) Essential hypertension, benign [facility] Diagnosis Chronic diastolic heart failure (CMS/HCC)- Primary Chronic diastolic heart failure Benign essential hypertension (CMS/HCC) Essential hypertension, benign Flu vaccine need 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) Stasis dermatitis of both legs Mixed hyperlipidemia (CMS/HCC) Mixed hyperlipidemia Stress reaction Unspecified acute reaction to stress 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 Spinal stenosis at L4-L5 level Class 3 severe obesity due to excess calories with serious comorbidity and body mass index (BMI) of50.0 to 59.9 in adult (CMS/HCC) 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, 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 Chronic kidney disease, stage 3b (HCC) (CMS/HCC) 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 (CMS/HCC) documented in this encounter [facility]* Diagnosis Routine general medical examination at health care facility- Primary Routine general medical examination at a health care facility ACP (advance care planning) Other specified counseling 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 Chronic kidney disease, stage 3b (HCC) (CMS/HCC) Pulmonary hypertension, unspecified (CMS/HCC) Morbid (severe) obesity due to excess calories (CMS/HCC) Body mass index (BMI) 50.0-59.9, adult (CMS/HCC) 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 (CMS/HCC) documented in this encounter [facility]* Diagnosis Spinal stenosis at L4-L5 level 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, 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 [facility] Diagnosis Spinal stenosis at L4-L5 level 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, 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 [facility]* Diagnosis Spinal stenosis at L4-L5 level 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, 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 [facility]* Diagnosis Spinal stenosis at L4-L5 level 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, 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 [facility]* Diagnosis Spinal stenosis at L4-L5 level 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, 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 Mixed hyperlipidemia Mixed hyperlipidemia [facility]* Diagnosis Spinal stenosis at L4-L5 level 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, 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 documented in this encounter [facility] Summary Purpose Family History No Family History Records FoundNo Family History Records FoundNo Family History Records FoundNo Family History Records FoundNo Family History Records FoundNo Family History Records FoundNo Family History Records Found Advance Directives No Advanced Directives Records FoundNo Advanced Directives Records FoundNo Advanced Directives Records FoundNo Advanced Directives Records FoundNo Advanced Directives Records FoundNo Advanced Directives Records FoundNo Advanced Directives Records Found Additional Source Comments INFORMATION SOURCE (unrecogn ized section and content) DATE CREATED AUTHOR 08/02/2017 [facility] DATE CREATED AUTHOR AUTHOR'S ORGANIZ ATION 08/02/2017 [facility] DATE CREATED AUTHOR AUTHOR'S ORGANIZ ATION 06/02/2021 [facility] [employer] DATE CREATED AUTHOR AUTHOR'S ORGANIZ ATION 09/11/2021 [facility] DATE CREATED AUTHOR AUTHOR'S ORGANIZ ATION 12/12/2023 [facility] DATE CREATED AUTHOR AUTHOR'S ORGANIZ ATION 12/19/2023 [facility] DATE CREATED AUTHOR AUTHOR'S ORGANIZ ATION 10/20/2024 [facility] EPIC Reason for Visit (unrecogniz ed section and content) ReasonCommentsMed RefillReasonCommentsFollow-upPain medHypertensionMed Refill Cymbalta--[facility] [place]FallReasonCommentsMedicare Annual Wellness Visit SubsequentReasonOnset DateCommentsMed Fnsaqu8704/02/2024ReasonOnset DateComments Med Kvaqsd2705/31/2024ReasonOnset DateCommentsMed Sfqpps7907/30/2024ReasonOnset Date CommentsMed Cmgvwy8909/10/2024ReasonOnset DateCommentsMed Ghcuow6811/14/2024 Care Teams (unrecognized sec tion and content) Team MemberRelationshipSpecialtyStart DateEnd Date Edmund Torres MD [address] [place] [address] PCP - Count includes the [facility]06/30/22 Edmund Torres MD [address] [place] [address] PCP - [facility]06/14/22Team MemberRelationshipSpecialtyStart Date End Date Edmund Torres MD [address] [place] [address] [facility] - Count includes the [facility]06/30/22 Edmund Torres MD [address] [place] [address] PCP - [facility]06/14/22Team MemberRelationshipSpecialtyStart Date End Date Edmund Torres MD [address] [place] [address] PCP - Count includes the [facility]06/30/22 Edmund Torres MD [address] [place] [address] PCP - [facility]06/14/22Team MemberRelationshipSpecialtyStart Date End Date Edmund Torres MD [address] [place] [address] PCP - Count includes the [facility]06/30/22 Edmund Torres MD [address] [place] [address] [facility]06/14/22Team MemberRelationshipSpecialtyStart Date End Date Edmund Torres MD [address] [place] [address] PCP - Count includes the [facility]06/30/22 Edmund Torres MD [address] [place] [address] [facility]/22Team MemberRelationshipSpecialtyStart Date End Date Edmund Torres MD [address] [place] [address] PCP - Count includes the [facility]06/30/22 Edmund Torres MD [address] [place] [address] PCP - [facility]06/14/22Team MemberRelationshipSpecialtyStart Date End Date Edmund Torres MD [address] [place] [address] PCP - Count includes the [facility]06/30/22 Edmund Torres MD [address] [place] [address] PCP - [facility]06/14/22Team MemberRelationshipSpecialtyStart Date End Date Edmund Torres MD [address] [place] [address] PCP - Count includes the [facility]06/30/22 Edmund Torres MD [address] [place] [address] PCP - GeneralInternal Medicine06/14/22Team MemberRelationshipSpecialtyStart Date End Date Edmund Torres MD [address] [place] [address] PCP - [facility]06/30/22 Edmund Torres MD [address] [place] [address] PCP - [facility]Internal Medicine06/14/22Team MemberRelationshipSpecialtyStart Date End Date Edmund Torres MD [address] [place] [address] PCP - [facility]06/30/22 Edmund Torres MD [address] [place] [address] PCP - GeneralInternal Medicine06/14/22 Concha Whitley LPN [address] [place] [address] 09/16/24Team MemberRelationshipSpecialtyStart DateEnd Date Edmund Torres MD [address] [place] [address] PCP - [facility]06/30/22 Edmund Torres MD [address] [place] [address] PCP - GeneralInternal Medicine06/14/22 Concha Whitley LPN [address] [place] [address] 09/16/24Team MemberRelationshipSpecialtyStart DateEnd Date Edmund Torres MD [address] [facility] [address] [place] [address] PCP - [facility]06/30/22 Edmund Torres MD [address] [facility] [address] [place] [address] PCP - GeneralInternal Medicine06/14/22 Concha Whitley LPN [address] [facility] [place] [address] 09/16/24 FOR RECORDS PERTAINING TO PATIENTS WHO ARE OR HAVE BEEN ENROLLED IN A CHEMICAL DEPENDENCY/SUBSTANCEABUSE PROGRAM, SOME INFORMATION MAY BE OMITTED. This clinical summary was aggregated from multiple sources. Caution should be exercised in using it in the provision of clinical care. This summary normalizes information from multiple sources, and as a consequence, information in this document may materially change the coding, format and clinical context of patient data. In addition, data may be omitted in some cases. CLINICAL DECISIONS SHOULD BE BASED ON THE PRIMARY CLINICAL RECORDS. [employer] [facility]. provides no warranty or guarantee of the accuracy or completeness of information in this document.
--- NOTE | 2025-01-08 11:00 | NM_ITS ---
Patient Name: JAVI LEONARDO MR#: [id number] : 1935 Exam Date: 01/08/2025 Ordering Doctor: DR KESHA PINZON M.D. RADIOLOGY REPORT PROCEDURE: NM C[place]SEA PERF SPECT REST STR COMPARISON: None. INDICATIONS: DYSPNEA TECHNIQUE: Exam Description: Stress/Rest two day protocol gated SPECT Rest Imagin.7 mCi Tc-99m Cardiolite IV on 01/10/2025 Stress Imaging 25.6 mCi Tc-99m Cardiolite IV on 01/08/2025 Exercise Protocol: 0.4 mg Lexiscan given IV Heart Rate (bpm): Rest: 65 Max: 76 PMHR: 58 Blood Pressure: Rest: 140/60 Max: 147/49 Symptoms: Rest and peak stress ECG findings were pending and the exercise portion of the study was pending per attending physician [facility] . For more details please see separate cardiac stress test report. FINDINGS: QUALITY OF STUDY: Fair PERFUSION DEFECT: LOCATION: Inferolateral SIZE: Medium SEVERITY: Moderate TYPE: Reversible WALL MOTION: Normal LV SIZE: 110 mL. TID / TCD: 1.0 LVEF: Calculated EF 74%. SUMMARY: Abnormal myocardial perfusion imaging study CONCLUSION: Abnormal myocardial perfusion nuclear images revealing evidence of inferolateral ischemia Normal left ventricle systolic function, ejection fraction 74% Transient ischemic dilatation,TID 1.0 EKG portion of stress test is reported separately Dictated by: Cortney Koenig MD on 01/13/2025 at 17:52 Approved by: Cortney Koenig MD on 01/13/2025 at 17:55
[2025-01-08 11:26] LABS: Anion Gap 10.2; Blood Urea Nitrogen 37.0 mg/dL (7.0-18.0); Calcium 9.2 mg/dL (8.5-10.1); Carbon Dioxide 30.5 mmol/L (21.0-32.0); Chloride 107 mmol/L (98-107); Estimated GFR (African America 43 (>=60 mL/min/1.73m^2); Estimated GFR (Non-African Ame 35 (>=60 mL/min/1.73m^2); Glucose 115 mg/dL (74-106); Potassium 4.7 mmol/L (3.5-5.1); Sodium 143 mmol/L (136-145)
--- NOTE | 2025-01-08 11:35 | PC.NURSE ---
Patient tolerated Lexiscan stress test without problems. Denies symptoms. Left stress lab symptom free.
[2025-01-08] MEDS: REGADENOSON 0.4 MG/5 ML SYRINGE IV (11:52)
--- NOTE | 2025-01-10 18:02 | PM.STRESS ---
Stress Test Stress Test Allergies Allergy/AdvReac Type Severity Reaction Status Date / Time oxaprozin (From Daypro) Allergy Intermediate Verified 09/30/22 12:58 sertraline (From Zoloft) Allergy Intermediate Verified 09/30/22 12:58 Requesting physician: Valeriano King Procedure: This was a Lexiscan stress test with myocardial perfusion imaging performed at the [facility] on 01/08/2025. Intravenous line was secured. The patient was attached to electrocardiographic monitoring. Baseline vital signs and ECG were obtained. Lexiscan 0.4 mg was administered intravenously followed by administration of Cardiolite. The patient then went on to obtain myocardial perfusion imaging. Resting heart rate was 65 bpm and peak heart rate was 76 bpm. Resting blood pressure was 140/60 and peak blood pressure was 147/49. General Information: Reason for Stress Test: Dyspnea on exertion. Cardiac History and Risk Factors: Hypertension, stents, hyperlipidemia. Resting 12 - Lead Electrocardiogram: Sinus rhythm with first-degree AV block, right bundle branch block, septal infarct age undetermined. Stress Test: Protocol: Pharmacologic stress with Lexiscan. Exercise Capacity: Not assessed. Blood Pressure Response: Resting hypertension. Rhythm: Sinus rhythm. No arrhythmias seen. ST - Response: No ischemic ECG changes seen. Patient Response: No symptoms reported. Interpretation: 1. No evidence of ischemic ECG changes seen following infusion of Lexiscan. 2. Myocardial perfusion images will be reported separately.
== END 2025-01-08 10:32 | disposition home or self-care (01) ==
LOC: CARD 10:32
PROVIDERS: PCP Internal Medicine; Visit Provider Internal Medicine Interventional Cardiology
DX: R06.09 Other forms of dyspnea (principal); I11.0 Hypertensive heart disease with heart failure
CPT/HCPCS: 36415; 78452; 80048; 93017; A9500; J2785

== ENCOUNTER 2025-01-10 08:41 | Outpatient (OUT) | payer MEDICARE, OTHER, SELFPAY ==
--- OUTSIDE RECORDS SUMMARY | 2025-01-10 08:46 | XMS_ITS | CCD ---
Author Organization [facility] Care Team Providers Care Police Shift Commander Name Role Phone RICARDO, ROMERO T Unavailable [...] Unavailable Edmund Torres MD Primary Care Provider [phone] VALERIANO KING Attending Unavailable ELTAHAWY, VALERIANO Attending Unavailable ELTAHAWY, VALERIANO Attending Unavailable ELTONHAWVALERIANO Huynh A Referring Unavailable EDMUND TORRES Primary Care Unavailable Whitley OREMANConcha Unavailable EDMUND TORRES Attending Unavailable EDMUND TORRES Attending Unavailable EDMUND TORRES Attending Unavailable Allergies Allergy ClassificationReported Allergen(s)Allergy TypeDate of OnsetReaction(s) Facility (2 sources)oxaprozin; Translations: [daypro]Drug Ujsypjs89-96-6975Tzy [facility] Repository (2 sources)sertralineDrug Badhlsj47-13-8211Erb [facility] Repository (16 sources)oxaprozin; Translations: [OXAPROZIN]Drug Izrrylw05-02-9542Suyynup [facility] (16 sources)Sertraline; Translations: [SERTRALINE]Drug Yudthns64-98-1994Chkngma [facility] (16 sources)Levonorgestrel-Ethinyl Estrad; Translations: [LEVONORGESTREL-ETHINYL ESTRAD]Drug Kuoumhfihsh92-13-3645[facility] Work Phone: (15 sources)OctacosanolDrug Kiljwcotwoz81-76-8361BxwmccsVSAT [facility] Medications Current Medications MedicationDrug Class(es)DatesSig (Normalized)Sig (Original)acetaminophen 300 mg / codeine phosphate 30 mg oral tablet (19 sources)Opioid AgonistStart: 84-69-4943vxid 1 tablet by mouth every six hours for painacetaminophen-codeine (Tylenol w/ Codeine #3) 300-30 MG tablet Indications: Spinal stenosis at L4-L5 level , 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, lumbar region , Displacement of lumbar disc with radiculopathy Take 1 tablet by mouth every 6 (six) hours if needed for moderate pain 120 tablet 1 11/15/2024 ActiveStart: 09-12-2024 End: 36-93-5513dsnm 1 tablet by mouth every six hours for painacetaminophen- codeine (Tylenol w/ Codeine #3) 300-30 MG tablet Indications: Spinal stenosis at L4-L5 level , 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, lumbar region , Displacement of lumbar disc with radiculopathy Take 1 tablet by mouth every 6 (six) hours if needed for moderate pain 120 tablet 10/18/2024 11/15/2024 Discontinued (Reorder)Start: 09-09-2024 End: 64-79-1707jnxw 1 tablet by mouth every six hours as needed for pain acetaminophen-codeine (Tylenol w/ Codeine #3) 300-30 MG tablet Indications: Spinal stenosis at L4-L5 level , 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, lumbar region , Displacement of lumbar disc with radiculopathy TAKE 1 TABLET BY MOUTH EVERY 6 HOURS NEEDED FOR MODERATE PAIN 120 tablet 09/09/2024 09/10/2024 Discontinued (Reorder)Start: 07-31-2024 End: 88-54-6677oejz 1 tablet by mouth every six hours for painacetaminophen- codeine (Tylenol w/ Codeine #3) 300-30 MG tablet Indications: Spinal stenosis at L4-L5 level , 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, lumbar region , Displacement of lumbar disc with radiculopathy Take 1 tablet by mouth every 6 (six) hours if needed for moderate pain 120 tablet 07/31/2024 08/30/2024 Active Start: 05-31-2024 End: 64-87-9278kwml 1 tablet by mouth every six hours for painacetaminophen- codeine (Tylenol w/ Codeine #3) 300-30 MG tablet Indications: Spinal stenosis at L4-L5 level , 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, lumbar region (CMS/HCC) , Displacement of lumbar disc with radiculopathy Take 1 tablet by mouth every 6 (six) hours if needed for moderate pain 120 tablet 05/31/2024 06/30/2024 ActiveStart: 07-10-2023 End: 64-72-8960pihx 1 tablet by mouth every six hours for painacetaminophen- codeine (Tylenol w/ Codeine #3) 300-30 MG tablet Indications: Spinal stenosis at L4-L5 level , 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, lumbar region (CMS/HCC) , Displacement of lumbar disc with radiculopathy Take 1 tablet by mouth every 6 (six) hours if needed for moderate pain 120 tablet 04/02/2024 05/02/2024 ActiveStart: 09-83-1748gelv 1 tablet by mouth every six hours [...] 180 tablet 3 06/21/2024 ActiveStart: 10-12-2022 End: 18-13-8747chsy 1 tablet by mouth in the morningcarvedilol [...] (9 sources)Sodium-Glucose Cotransporter 2 InhibitorStart: 02-01-2024 End: 42-12-7317csfk 10 mg by mouth once dailydapagliflozin (Farxiga) 10 MG Take 10 mg by mouth Daily 02/01/2024 01/31/2025 Activediclofenac sodium 0.01 mg/mg topical gel (14 sources)Nonsteroidal Anti-inflammatory DrugStart: 49-90-4501avvqbunybj sodium 1 % gel Indications: Osteopenia of right hip APPLY 4 GRAMS TO RIGHT SHOULDER 4 TIMES PER DAY 300 g 1 12/26/2022 ActiveDULoxetine 30 mg delayed release oral capsule (16 sources)Serotonin and Norepinephrine Reuptake InhibitorStart: 09-26-2023 End: 53-33-2574eyur 1 capsule by mouth once dailyDULoxetine (Cymbalta) [...] oral capsule (12 sources)Nicotinic AcidStart: 09-12-2024 End: 48-28-8468onfo 1 capsule by mouth once dailyNiacin-Inositol (No Flush Niacin) 400-100 MG capsule Indications: Mixed hyperlipidemia Take 1 capsule by mouth Daily 90 capsule 3 09/12/2024 09/12/2025 ActiveStart: 07-10-2023 End: 85-41-6935jvmi 1 capsule by mouth once dailyNiacin-Inositol (No Flush Niacin) 400-100 MG capsule Indications: Mixed hyperlipidemia (CMS/HCC) Take 1 capsule by mouth Daily 90 capsule 3 07/10/2023 07/09/2024 ActiveStart: 10-12-2022 End: 83-73-0206zqdj 1 capsule by mouth in the morningNo Flush Niacin 400-100 MG capsule Indications: Mixed hyperlipidemia (CMS/HCC) Take 1 capsule by mouth in the morning. 90 capsule 3 10/12/2022 10/12/2023 Xihyuo63 hr isosorbide mononitrate 30 mg extended release oral tablet (16 sources)Nitrate VasodilatorStart: 01-10-2023 End: 17-50-1051kism 1 tablet by mouth every twenty-four hours in the morning isosorbide mononitrate ER (Imdur) 30 MG 24 hr tablet Indications: Benign essential hypertension Take 1 tablet (30 mg) by mouth in the morning. 100 tablet 3 03/13/2023 Activelisinopril 40 mg oral tablet (14 sources)Angiotensin Converting Enzyme InhibitorStart: 11-86-3698hiad 1 tablet by mouth in the morninglisinopril 40 MG tablet Indications: Benign essential hypertension TAKE 1 TABLET BY MOUTH IN THE MORNING 90 tablet 3 10/08/2024 ActiveStart: 58-56-5452glou 1 tablet by mouth in the morning lisinopril 40 MG tablet Indications: Benign essential hypertension TAKE 1 TABLET BY MOUTH IN THE MORNING 90 tablet 3 11/17/2023 ActiveStart: 10-12-2022 End: 52-28-6750chho 1 tablet by mouth in the morninglisinopril [...] mg extended release oral tablet (15 sources)Anti-anginalStart: 97-95-3715sqvw 1 tablet by mouth twice daily ranolazine (Ranexa) 500 MG 12 hr tablet Indications: 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 TAKE 1 TABLET BY MOUTH TWICE A DAY 180 tablet 1 02/27/2023 Active Problems Active Problems Problem ClassificationProblemDateDocumented DateEpisodic/Chronic Administrative/social admission (2 sources)Patient encounter status; Translations: [Other specified counseling] 55-25-0177JklubfyiKtiburb disorders (16 sources)Acute stress disorder; Translations: [Acute stress reaction]Onset: 760646-44-8072IojiovaYfguucha (15 sources)Bilateral pseudophakia; Translations: [Presence of intraocular lens] Onset: 829427-04-9152QoencnaTcuhkkm kidney disease (4 sources)Chronic kidney disease stage 3B ; Translations: [Chronic kidney disease, stage 3b (HCC) (CMS/HCC)]60-18-3267MlorhxbMdxtyqfyxy heart failure; nonhypertensive (20 sources)Chronic diastolic heart failure; Translations: [Chronic diastolic (congestive) heart failure]Onset: 379450-43-1869KzvtyvkZbpnpqnu atherosclerosis and other heart disease (20 sources)Coronary arteriosclerosis; Translations: [Atherosclerotic heart disease of red cliff coronary artery with unspecified angina pectoris]Onset: 709280-80-7412RzsoydyNbnljvbq, dementia, and amnestic and other cognitive disorders (15 sources)Frailty; Translations: [Age-related physical debility]Onset: 994900-62-7986AookhklYajpzuloj of lipid metabolism (20 sources)Hyperlipidemia; Translations: [Hyperlipidemia, unspecified]Onset: 191643-40-4030NyvzfjaYcpkubfqr hypertension (18 sources)Benign essential hypertension; Translations: [Essential (primary) hypertension]Onset: 462519-15-8127DftgmngOdqdw valve disorders (3 sources)Nonrheumatic mitral (valve) insufficiency; Translations: [Nonrheumatic mitral (valve) insufficiency]Onset: 47-35-3394NtlqkqhEfbcnbujibmnd and screening for infectious disease (2 sources)Needs influenza immunization; Translations: [Encounter for immunization]24-11-8665BakcnledLnszkqtaxj disorders (15 sources)Decreased estrogen level; Translations: [Other primary ovarian failure]Onset: 714815-58-2880PsxolgpBqvbtxkcoaj deficiencies (15 sources)Vitamin D deficiency; Translations: [Vitamin D deficiency, unspecified]Onset: 900552-44-6237VofatciHnwfncvbjiicqd (15 sources)Primary gonarthrosis, bilateral; Translations: [Bilateral primary osteoarthritis of knee]Onset: 441146-75-3899HufvetwLwpra diseases of veins and lymphatics (12 sources)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; Translations: [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]Onset: hronic Other diseases of veins and lymphatics (7 sources)Chronic peripheral venous hypertension; Translations: [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] Onset: 596118-28-2495XucyeirKldmm hereditary and degenerative nervous system conditions (15 sources)Restless legs; Translations: [Restless legs syndrome]Onset: 595223-55-9035JyhkciiKggjd inflammatory condition of skin (15 sources)Rosacea; Translations: [Rosacea, unspecified]Onset: 10-06-2022 74-80-5515QisdofiSmpob nervous system disorders (15 sources)Peripheral nerve disease ; Translations: [Polyneuropathy, unspecified]Onset: 069546-52-7177HiikknuRloqy nervous system disorders (4 sources)Chronic inflammatory demyelinating polyradiculoneuropathy; Translations: [Chronic inflammatory demyelinating polyneuritis]06-05-0320Vzwezql Other non-traumatic joint disorders (1 source)Disorder of joint of shoulder region; Translations: [Other specific arthropathies, not elsewhere classified, right shoulder]Onset: 10-06-2022 40-03-5678DbsochiXvtnm non-traumatic joint disorders (14 sources)Arthropathy of right shoulder; Translations: [Other specific arthropathies, not elsewhere classified, right shoulder]Onset: 10-06-2022 22-96-5703SnpfjaiOtare nutritional; endocrine; and metabolic disorders (15 sources)Metabolic syndrome X; Translations: [Metabolic syndrome]Onset: 793198-27-9811VruhkwrQgmqd nutritional; endocrine; and metabolic disorders (15 sources)Morbid obesity; Translations: [Morbid (severe) obesity due to excess calories]Onset: 480763-72-9387WekjtugRvqvg nutritional; endocrine; and metabolic disorders (15 sources)Severe obesity; Translations: [Class 3 severe obesity due to excess calories with serious comorbidity and body mass index (BMI) of 50.0 to 59.9 in adult ([facility])]Onset: 556499-56-7012YnbacdnIfexa nutritional; endocrine; and metabolic disorders (2 sources)Obesity caused by energy imbalance; Translations: [Morbid (severe) obesity due to excess calories]54-03-2251QrwybohNrojy nutritional; endocrine; and metabolic disorders (2 sources)Body mass index 40+ - severely obese; Translations: [Body mass index (BMI) 50.0-59.9, adult]05-11-1077ChznalyFdvzivhkr heart disease (2 sources)Pulmonary hypertension; Translations: [Pulmonary hypertension, unspecified]50-93-9146TzlkywzCxhxtunj codes; unclassified (15 sources)Obstructive sleep apnea syndrome; Translations: [Obstructive sleep apnea (adult) (pediatric)]Onset: 993934-81-0747MepegobFrtehkh detachments; defects; vascular occlusion; and retinopathy (15 sources)Macular hole of left eye; Translations: [Macular cyst, hole, or pseudohole, left eye]Onset: 824453-25-6554WxzlzuoHotpqyskwtk; intervertebral disc disorders; other back problems (20 sources)Spinal enthesopathy, lumbar region; Translations: [Spinal enthesopathy]Onset: 920226-53-6483KnvoxhjXpasgehzbmmr (1 source)SILICONE INVITREOUS / SILICONE INVITREOUS()Onset: 10-06-2016 Past or Other Problems Problem ClassificationProblemDateDocumented DateEpisodic/ChronicOther bone disease and musculoskeletal deformities (15 sources)Osteopenia; Translations: [Other specified disorders of bone density and structure, right thigh]Onset: 083458-63-8389YzshqkbpZczxs connective tissue disease (15 sources)Tear of right rotator cuff; Translations: [Unspecified rotator cuff tear or rupture of right shoulder, not specified as traumatic]Onset: 10-06-2022 93-64-4511EduqeznpFxyac diseases of veins and lymphatics (1 source)Stasis dermatitis; Translations: [Venous insufficiency (chronic) (peripheral)]Onset: 769130-28-6806GlvnhpllOsktx diseases of veins and lymphatics (16 sources)Disorder of vein of lower extremity; Translations: [Venous insufficiency (chronic) (peripheral)]Onset: 874149-93-5610AmfpnvzvSduse lower respiratory disease (4 sources)Shortness of breath; Translations: [SHORTNESS OF BREATH]Onset: 71-60-0359EqemyjkgVymen lower respiratory disease (14 sources)Dyspnea on exertion; Translations: [Other forms of dyspnea]Onset: 067466-65-6900HqnhaehhFpvpzfcxwls; intervertebral disc disorders; other back problems (20 sources)Lumbar disc prolapse with radiculopathy; Translations: [Intervertebral disc disorders with radiculopathy, lumbar region]Onset: 890654-85-8729RnwcyezpBhwunewepewo (1 source)SILICONE INVITREOUS; Translations: [SILICONE INVITREOUS]Onset: 10-06-2016 Results Test NameValueInterpretationReference RangeFacilityBASIC METABOLIC PANLon 20-64-7507Ntdrn gap [Moles/Vol]6 mmol/LNormal5-15[facility] Comment on above:Performed By: #### BMP #### [facility] ([id number]) [address] [place], [place] [address]Rfxgxun [Mass/Vol]9.1 mg/dLNormal8.5-10.5PFairfield Medical CenterComment on above:Performed By: #### BMP #### [facility] ([id number]) [address] [place], [place] [address]Wyfspqha [Moles/Vol]104 mmol/IRqtktn48-355CtqPnfnuoBaylor Scott & White Medical Center – HillcrestComment on above:Performed By: #### BMP #### [facility] ([id number]) [address] [place], [place] [address]CJ4 [Moles/Vol]29 mmol/OGwgwsk76-86IilCurnsdFairfield Medical Center Comment on above:Performed By: #### BMP #### [facility] ([id number]) [address] [place], [place] [address]Sdaotgtlyq [Mass/Vol]1.30 mg/dLHigh0.40-1.00ProBaylor Scott & White Medical Center – HillcrestComment on above:Result Comment: METHOD TRACEABLE TO IDMS STANDARD Performed By: #### BMP #### [facility] ([id number]) [address] [place], [place] [address]LLT/1.73 sq M.predicted among non-blacks MDRD (S/P/Bld) [Vol rate/Area]40 mL/min/{1.73_m2}Low>59ProBaylor Scott & White Medical Center – HillcrestComment on above: Result Comment: Reported eGFR is based on the CKD-EPI 2021 equation that does not use a race coefficient.Performed By: #### BMP #### [facility] ([id number]) [address] [place], [place] [address]Jscsuxy [Mass/Vol]105 mg/rEYcgt00-26CglXlwwueBaylor Scott & White Medical Center – Hillcrest Comment on above:Performed By: #### BMP #### [facility] ([id number]) [address] [place], [place] [address]Ihtcjwlxu [Moles/Vol]4.6 mmol/LNormal3.5-5.0ProBaylor Scott & White Medical Center – HillcrestComment on above:Performed By: #### BMP #### [facility] ([id number]) [address] [place], [place] [address]Bnytpj [Moles/Vol]139 mmol/JTzoexr853-939GemQxozbl [facility]remont HospitalComment on above:Performed By: #### BMP #### [facility] ([id number]) [address] [place], [place] [address]Rqpn nitrogen [Mass/Vol]25 mg/dLNormal5-27ProBaylor Scott & White Medical Center – HillcrestComment on above:Performed By: #### BMP #### [facility] ([id number]) [address] [place], [place] [address]Jxdizc [facility] 00-89-6102Hrcjzu-up [id number] Sheyla Leonardo 1935 F Date Provider Department Center 12/[facility]VALERIANO KING [facility] Family History Problem Relation Age of Onset Coronary artery disease Other Family Status - Relation Status Age at Other Level of Service:[address] [place] OFFICE/OUTPATIENT ESTABLISHED MOD [facility] E[facility] DOPPL[facility] COMPLETEon 87-88-5468[address] [address] Cardiology Report Signed Patient: SHEYLA LEONARDO MR#: [id number] : 1935 Acct:[id number] Age/Sex: 88 / F ADM Date: 11/15/23 Loc: CARD Attending Dr: Valeriano King M.D. Ordering Physician: Valeriano King M.D. Date of Service: 11/15/23 Procedure(s): CA echo doppler complete Accession Number(s): [id number] cc: EDMUND TORRES ; Valeriano King M.D. Patient Name: SHEYLA LEONARDO MR#: [id number] : 1935 Exam Date: 11/15/2023 Ordering Doctor: DR Valeriano King M.D. ECHOCARDIOGRAM REPORT PROCEDURE: CA ECHO DOPPLER COMPLETE INDICATIONS: Aortic valve disease, VT, cardiac stent, hypertension, h/o rheumatic fever COMPARISON: [...] not included)...TBHRadiology, Radiologist, MD - 11/15/2023 [place] [address] Cardiology Report Signed Patient: SHEYLA LEONARDO MR#: [id number] : 1935 Acct:[id number] Age/Sex: 88 / F ADM Date: 11/15/23 Loc: CARD Attending Dr: Valeriano King M.D. Ordering Physician: Valeriano King M.D. Date of Service: 11/15/23 Procedure(s): CA echo doppler complete Accession Number(s): [id number] cc: EDMUND TORRES ; Valeriano King M.D. Patient Name: SHEYLA LEONARDO MR#: [id number] : 1935 Exam Date: 11/15/2023 Ordering Doctor: DR Valeriano King M.D. ECHOCARDIOGRAM REPORT PROCEDURE: CA ECHO DOPPLER COMPLETE INDICATIONS: Aortic valve disease, VT, cardiac stent, hypertension, h/o rheumatic fever COMPARISON: [...] Signed By: 11/15/23 1734 DD/ 173 TD/TT: Nautical Instrument Mechanic: [facility] Veterans' HospitalRadiology Study observation (narrative)[facility] HealthcareCA ECHO DOPPLER COMPLETEOrdered By: Radiologist Radiology on 93-11-7538[facility] Work Phone: Office [facility] 55-02-5598Bgnrhm-up [id number] Sheyla Leonardo 1935 F Date Provider Department Center 06/12/2023 VALERIANO NOWAK Family History Problem Relation Age of Onset Coronary artery disease Other Family Status - Relation Status Age at Other Level of Service:[address] [place] OFFICE/OUTPATIENT ESTABLISHED LOW [facility] 74-52-8730Inoank-up visit [id number] Sheyla Leonardo 1935 F Date Provider Department Center 12/22/2022 VALERIANO NOWAK Family History Problem Relation Age of Onset Coronary artery disease Other Family Status - Relation Status Age at Other Level of Service:[address] [place] OFFICE/OUTPATIENT ESTABLISHED LOW MDM [facility]Basic Metabolic Panelon 63-54-5765Ltlyd gap [Moles/Vol]16 mmol/BKnhrah15-81Biuvyoxp [facility] SpecialistComment on above: Result Comment: Effective 02/11/2019 reference range changed.Performed By: #### BMP #### [facility] [address] [place], [place] [id number] [Mass/Vol]9.6 mg/dLNormal8.6-10.2[facility] SpecialistComment on above:Performed By: #### BMP #### [facility] [address] [place], [place] [id number] [Moles/Vol]106 mmol/UHckpfk22-493Dhlhclxj [facility] SpecialistComment on above:Performed By: #### BMP #### [facility] [address] [place], [place] [id number] [Moles/Vol]25 mmol/UQxqetz50-16Ltllqlzy [facility] SpecialistComment on above:Performed By: #### BMP #### [facility] [address] [place], [place] [id number] [Mass/Vol]1.0 mg/dLNormal0.6-1.4[facility] centern [facility] SpecialistComment on above:Performed By: #### BMP #### [facility] [address] [place], [place] [id number] mL/min/1.87g7Eymaos>60[facility] centern [facility] SpecialistComment on above:Performed By: #### BMP #### [facility] [address] [place], [place] [id number] mL/min/1.80a9Pbe>60[facility]ortMer[facility] Health Criminal Intelligence Analyst Comment on above:Performed By: #### BMP #### [facility] [address] [place], [place] [id number] [Mass/Vol]100 mg/oHOmsg03-26Xzyjvpnj [facility] SpecialistComment on above:Result Comment: For FASTING Glucose --- ADA reference ranges: Normal 65-99 mg/dl Prediabetes 100-125 Diabetes >/= 126Performed By: #### BMP #### [facility] [address] [place], [place] [id number] [Moles/Vol]4.7 mmol/LNormal3.5-5.5NortAultman Hospital SpecialistComment on above:Performed By: #### BMP #### [facility] [address] [place], [place] [id number] [Moles/Vol]142 mmol/FEywleq735-330Mpkwbnpl [facility] SpecialistComment on above:Performed By: #### BMP #### [facility] [address] [place], [place] [id number] nitrogen [Mass/Vol]27 mg/dLHigh7-25NortAultman Hospital SpecialistComment on above:Performed By: #### BMP #### [facility] [address] [place], [place] [id number] M/2D COMPLETEon 83-57-2886IIXFUBBHXN M/2D COMPLETE Patient: SHEYLA LEONARDO Exam Date: 01/18/2021 : 1935 Gender:F Ordering : DR VALERIANO KING M.D. Admission #: [id number] Family : Order #: [id number] CLICK HERE TO VIEW EXAM ECHOCARDIOGRAM REPORT [...] Area(A4C): 25.10 cm2 Left Atrium Systolic Volume(A4C): 09261 mm3 Mitral Valve MV E to A [...] by: Valeriano King M.D. on 01/18/2021 at 16:11[facility] HospitalHistory and Physicalon 54-84-7441YVH IP Note OR TranscriptionRegency Hospital Cleveland WestOPERATIVE REPORTon 83-74-7185ZQWPWIHLR REPORT[address] [address] OPERATIVE REPORTPATIENT NAME: SHEYLA LEONARDO : 1936MED REC NO: [id number] ROOM:ACCOUNT NO: [id number] ADMISSIONDATE: 10/06/2016PROVIDER: Romero AlarconenDATE OF PROCEDURE: 10/06/2016PREOPERATIVE DIAGNOSIS: Intraocular silicone, left eye.POSTOPERATIVE DIAGNOSIS: Intraocular silicone, left eye.PROCEDURE: Pars plana vitrectomy with silicone removal, left eye.ANESTHESIA: Monitored.REASON FOR OPERATION: The patient is an 81-year-old woman whounderwent [facility] She knew that [facility] [...] good condition.ROMERO Ramirez SAADEND: 10/06/2016 10:22:22 [id number]#: [id number] Doc#: [id number] Hospital Cleveland West Vital Signs Date TimeVital SignValuePerforming JqjrjtcuoGevxqifg51-22-3881 08:34-0500Body pejcgj044 cmDaamg Torres MD Work Phone: [phone]-WideAngle MetricsSac-Osage HospitalFaeoyopexe02-49-3937 08:34-0500Diastolic blood mgmtuxvp72 mm[Hg]Edmund Torres MD Work Phone: [phone] MetricsSac-Osage HospitalKjxmtaiyjq93-44-0403 08:34-0500Heart rate68 /min Edmund Torres MD Work Phone: [phone] HospitalDeryvqkuwm76-58-9820 08:34-6978KvT3% (BldA) [Mass fraction]96 %Edmund Torres MD Work Phone: [phone] HospitalOfrlfbbjlf70-01-6485 08:34-0500Systolic blood hbdbweth077 mm[Hg]Edmund Torres MD Work Phone: [phone]-Osage HospitalGafsbejguj71-43-5596 08:34-0400Body pypujr566 cm Edmund Torres MD Work Phone: [phone] MetricsSac-Osage HospitalAlhqotubwj04-50-0340 08:34-0400Body mass index (BMI) [Ratio]52.61 kg/u2NjonvfEdmund Torres MD Work Phone: [phone]-Osage HospitalVbqwflrurc22-78-4319 08:34-0400Body toskye620.72 kgDamag Torres MD Work Phone: NOIV Gypncsefee67-39-7967 08:34-0400Diastolic blood koabrhdg52 mm[Hg]Edmund Torres MD Work Phone: NOUY Cdvkubgcqi55-92-7036 08:34-0400Heart rate60 /min Edmund Torres MD Work Phone: NOUA Synektrfxi35-61-8407 08:34-8588HlK2% (BldA) [Mass fraction]98 %Edmund Torres MD Work Phone: NOZK Vkssjqpjbr86-84-7764 08:34-0400Systolic blood wprbjnso845 mm[Hg]Edmund Torres MD Work Phone: [facility] Encounters Encounter DateEncounter TypeCare ProviderFacilityStart: 11-14-2024 End: 10-55-7423Sjixmdcsh encounterEriLos Alamos Medical Center Work Phone: noms POPULATION HEALTHComment on above:Med Refill Start: 10-18-2024 End: 42-22-3432Kzsonz Bret Torres MD Work Phone: NOVW [place] [facility] MedinceStart: 10-18-2024 End: 28-19-4720Wlqomsbenjamin Torres MD Work Phone: NOIU [place] [facility] MedinceStart: 10-18-2024 End: 66-82-0312yynjeyzbflHSOLZU B BERRYNot AvailableStart: 09-10-2024 End: 06-51-1386MvpiwjCtmgzhr Ino OLIVER [place] [facility] MedinceComment on above: Spinal stenosis at L4-L5 level; 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, lumbar region; Displacement of lumbar disc with radiculopathy; Mixed hyperlipidemiaStart: 09-09-2024 End: 26-00-4896GjgbfnNwyohb B Berry MD Work Phone: NOEG [place] [facility] MedinceComment on above:Spinal stenosis at L4-L5 level; 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, lumbar region; Displacement of lumbar disc with radiculopathyStart: 07-30-2024 End: 92-67-3400RtegjfUdube Dukles LPNNOMS CI FMComment on above:Spinal stenosis at L4-L5 level; 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, lumbar region; Displacement of lumbar disc with radiculopathyStart: 05-31-2024 End: 66-04-2159BfzklaYzwtp Dukles LPNNOMS CI FMComment on above:Spinal stenosis at L4-L5 level; 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, lumbar region (CMS/HCC); Displacement of lumbar disc with radiculopathyStart: 04-02-2024 End: 98-76-7965YccxbjKwxtvqf Ino SANTOSOMS CI FMComment on above:Spinal stenosis at L4-L5 level; 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, lumbar region (CMS/HCC); Displacement of lumbar disc with radiculopathyStart: 03-11-2024 End: 09-72-1481Nxseii flowsChana Torres MD Work Phone: NOMS CI FMStart: 03-11-2024 End: 44-12-6316Oxiitg flowsChana Torres MD Work Phone: NOMS CI FMStart: 03-11-2024 End: 94-50-5907Qhndi of hemosiderin, Simon Torres MD Work Phone: [facility] Work Phone: Start: 03-11-2024 End: 81-43-6568Roifxfp encounter procedureEdmund Torres MD Work Phone: [facility] [...] of left lower extremity (CMS/HCC)Start: 03-11-2024 End: 81-85-4057idqinmlswoFZLGCT B BERRYNot AvailableStart: 12-18-2023 End: 89-36-1021ahxyfpxkcmJBGMMountain View Hospitaltart: 12-11-2023 End: 33-76-8075xxijrgzuriRAHOWayne Hospitaltart: 11-15-2023 End: 43-02-9023Mhnljgezc Result EncounterGeneric External Data ProviderNOMS External Department UnsolicitedStart: 11-15-2023 End: 79-57-4779Lzstwfogi Result EncounterGeneric External Data ProviderNOMS External Department UnsolicitedStart: 11-08-2023 End: 52-11-3613Hbymmt Bret Torres MD Work Phone: [facility] CI FMStart: 11-08-2023 End: 85-96-1630Kgphsy Bret Torres MD Work Phone: [facility] CI FMStart: 11-08-2023 End: 53-50-6749Wvohrd outpatient visit 25 minutesDamag Torres MD Work Phone: [facility] CI FMComment on above:Chronic diastolic heart failure (CMS/HCC) (Primary Dx); Benign essential hypertension (CMS/HCC); Flu vaccine need; 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); Stasis dermatitis [...] of left lower extremity (CMS/HCC)Start: 11-08-2023 End: 30-44-3794auvntyogszYVKEQW B BERRYNot AvailableStart: 06-12-2023 End: 04-21-4696zvkagptudwMAVACleveland Clinic Mercy Hospitaltart: 78-55-4361LmckkeCuynjo B Berry MD Work Phone: noMS CI FMComment on above:Benign essential hypertension (CMS/HCC)Start: 12-22-2022 End: 16-49-8569dhiimorasdBEPGCleveland Clinic Mercy Hospitaltart: 15-22-6623yetvlejvvkPT AB TAFORMERLY [facility] HOSPITALFacility:W6Prmaq: 41-93-2150lvtgpmdsbwEY EHAB [facility] STOKESFacility:E4Jhron: 01-18-2021 End: 84-55-7973svufkwbkyiIXNovant Health, Encompass HealthFacility:V1Kpbek: 10-06-2016 End: 58-18-9053NtjafgcklcVXHGNK T WISIAVan Wert County Hospitaltart: 08-11-2016 End: 10-91-0814FmzqthccesPNEFBQE PHYSICIANFacility:[facility] Procedures DateProcedureProcedure DetailPerforming ClinicianStart: 70-11-2678II ECHO DOPPLER COMPLETEGeneric External Data ProviderStart: 98-38-6589FRJSBQXHV PATIENT ROMERO NEDIMITRYENStart: 13-11-3721DIEUUWTD OXYGEN THERAPY PROTOCOLPHILIP RICARDO Start: 57-58-6245BKLJDJKMFF W/GFR POINT OF CAREPHILIP NELSENStart: 10-06-2016 POCT GLUCOSEPHILIP NEENStart: 81-07-4302STCTSZXEE (POC)ROMERO NELSENStart: 52-12-1990PESYOPFKTFVFR NELSENStart: 18-78-1423Zdvabzoipo pulse oximetryPHILIP NELSENStart: 42-85-3581KKJJMMXTJ DEEP BREATHING AND COUGHINGPHILIP NELSENStart: 74-44-2430FTHKQHX COMMUNICATIONPHILIP NELSENStart: 01-92-0163SKC CHEM8 INCLUDES CALC. ANION GAPPHILIP NELSENStart: 81-06-6418HAGTYOWF OXYGEN THERAPY PROTOCOL ROMERO [facility] CENTERtart: 80-82-1437FWUPBE PHYSICIAN (SPECIFY)ROMERO NELSENStart: 66-40-2562CSQTF SIGNSPHILIP RICARDO Plan of Treatment DateCare ActivityDetailAuthorStart: 04-17-2025 End: 41-35-9402Bngvzvn encounter clttqdjwo58/12/2026 9:30 AM EDT Office Visit [facility] [place] [address] [place] [address] Edmund Torres MD [address] [place] [address] [facility] [place] [facility] MedinceStart: 10-18-2024 End: 73-64-4196Xvddxww encounter procedureNOMS [place] [facility] MedinceComment on above:ArrivedStart: 17-28-1081ZMSPP-19 Vaccine ( season)COVID-19 Vaccine ()NOMS HealthcareStart: 14-45-1275Fgpyiotbq vaccinationInfluenza Vaccine (#1)NOMS HealthcareStart: 06-10-2024 End: 14-71-8959Sssawtqbejab consultation with eywzsif2006/10/2024 9:45 AM EDT Telemedicine [facility] [address] [place] [address] [phone] Edmund Torres MD [address] [place] [address] N[facility] CI FMStart: 03-11-2024 End: 54-53-8903Dkeyzul encounter njodauulk62/03/2025 8:30 AM EST Office Visit [facility] [address] [place] [address] Edmund Torres MD [address] [place] [address] ArrivedNOMS CI FMComment on above:ArrivedStart: 11-08-2023 End: 42-73-8453Vwzezwnyykfdl metabolic 2000 panel - Serum or PlasmaComprehensive metabolic panel Lab Routine Chronic diastolic heart failure (CMS/HCC) Coronary arterydisease involving red cliff coronary artery of red cliff heart with angina pectoris (CMS/HCC) Expected: 11/08/2023 (Approximate), Expires: 11/07/2024NOMS HealthcareComment on above:Expected: 11/08/2023 (Approximate), Expires: 11/07/2024Start: 11-08-2023 End: 09-56-9989Wnfvg 1996 panel - Serum or PlasmaLipid panel Lab Routine Mixed hyperlipidemia ([facility]) Expected: 11/08/2023 (Approximate), Expires:11/07/2024 NOMS HealthcareComment on above:Expected: 11/08/2023 (Approximate), Expires: 11/07/2024Start: 11-08-2023 End: 10-31-1875IVM W/REFLEX TO FT4TSH W/REFLEX TO FT4 Lab Routine Class 3 severe obesity due to excess calories with serious comorbidity and body mass index (BMI) of 50.0 to 59.9 in adult ([facility]) Expected: 11/08/2023 (Approximate), Expires: 11/07/2024[facility] Work Phone: Comment on above:Expected: 11/08/2023 (Approximate), Expires: 11/07/2024Start: 11-08-2023 End: 33-74-1270Hkyajfg encounter /02/2024 8:30 AM EDT Office Visit [facility] [address] [facility] [address] [place] [phone] Edmund Torres MD [address] [facility] [address] [place] [address] ArrivedNOMS CI FMComment on above:ArrivedStart: 10-08-2023 Influenza vaccinationInfluenza Vaccine (#1)NOMS HealthcareStart: 05-08-2023 End: 46-02-5527Omoonub encounter hfzzapesy71/01/2024 9:00 AM EDT Office Visit [facility] [address] [facility] [address] [place] [phone] Edmund Torres MD [address] [facility] [address] [place] [address] NOMS CI FMStart: 40-19-8004ZNmI/Tdap/Td Vaccines (1 - Tdap) DTaP/Tdap/Td Vaccines (1 - Tdap)[facility]S HealthcareCBC W Auto Differential panel - BloodCBC and differential Lab Routine Chronic diastolic heart failure (CMS/HCC) 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 [place], [place] [address]Kwnemhbwqg75-88-5141mibzpzhfm virus vaccine, unspecified formulationEdmund Torres MD Work Phone: [phone] [place], [place] [address]Pirilohetv49-56-1189djfqvfcrt, high dose seasonal, preservativeRossy Torres MD Work Phone: [phone] [place], [place] [address]Xinkwbzngz97-77-8388owccdvuaq, high dose seasonal, preservativeRossy Torres MD Work Phone: [phone] [place], [place] [address]Jfxrbqczwz79-24-0582gnvmgqogf, high dose seasonal, preservativeRossy Torres MD Work Phone: [phone] [place], [place] [address]Gmieinptap10-63-8193ilccqokbm, high dose seasonal, preservativeRossy Torres MD Work Phone: [phone] [place], [place] [address]Fapxqnqwnb03-74-7838Ebhfguryw, High-dose Seasonal, Quadrivalent, Preservative Margarette Torres MD Work Phone: [phone] [place], [place] [address]Uolpurhysh66-95-8083Singnytrd, High-dose Seasonal, Quadrivalent, Preservative Margarette Torres MD Work Phone: [phone] [place], [place] [address]Bcjcckqsvh18-79-2514pfnrvmxnlpeg polysaccharide vaccine, 23 Igor Torres MD Work Phone: [phone] [place], [place] [address]Kmhpefvmwo80-03-9677Kcwhbvfkd, High-dose Seasonal, Quadrivalent, Preservative Margarette Torres MD Work Phone: [phone] [place], [place] [address]Jhfgsflgml11-95-2026bytgkevyfxbl conjugate vaccine, 13 Igor Torres MD Work Phone: [phone] [place], [place] [address]Nnxnugkkns09-92-3822Rttpexckq, High-dose Seasonal, Quadrivalent, Preservative Margarette Torres MD Work Phone: [phone] [place], [place] [address]Daonyiukrb59-00-0426ictcsnxm influenza, intradermal, preservative Margarette Torres MD Work Phone: [phone] [place], [place] [address]Sjmcirzulk09-21-7271jrtjzrfm influenza, intradermal, preservative Margarette Torres MD Work Phone: [phone] [place], [place] [address]Zzfvnbmnht67-93-6708gmcudhgzs, seasonal, injectable, preservative Margarette Torres MD Work Phone: [phone] [place], [place] [address]Hstuzlpodv23-72-5464mzpjivpmmqni polysaccharide vaccine, 23 Igor Torres MD Work Phone: [phone] [place] [address] Payers DatePayer CategoryPayerPolicy [id number] Health InsuranceHOUSTON [employer] .[id number] [id number] 1992Medicare [id number] [id number] 1960 Dptm-[id number] [id number] [id number] 2.16.840.1.460228.3.57[id number] 2.16.840.1.213950.3.57[id number] 2..840.1.472968.3.57[id number] 2.16.840.1.369316.3.57[id number] 2.16.840.1.301583.3.579.2.1259 Social History DateTypeDetailFacilityStart: 80-67-2194Qjzgwal smoking status NHISNever smoked tobaccoNOMS HealthcareStart: 84-00-9465Vicotnl use and exposureSmokeless tobacco non-userNOMS HealthcareStart: 10-12-2022 End: 79-80-0754Gfabvtq intakeLifetime non-drinker (finding)[facility] HealthcareStart: 10-12-2022 End: 93-13-4278Mrpngaj of Social functionNOMS HealthcareStart: 10-12-2022 End: 53-28-3296Tykjlmo use panelNOMS HealthcareStart: 47-51-4080Pqq Assigned At BirthNot on fileNOMS HealthcareStart: 12-41-8019Gpbhcat Mu-Ism ServicesNot on fileNOMS HealthcareDo you belong to any clubs or organizations such as holiness groups, unions, fraternal or athletic groups, or school groups?NoNOMS Healthcare Are you now , , , , never or living with a partner?[facility]idowedC[facility] Healthcare Functional Status ZfpgPzebvbjddvLqpbeiIzttqoxq60-78-0365Zzxygap Health Questionnaire 2 item (PHQ- 2) [Reported][facility] Clinical Notes 12-22-2022 to 11-15-2024 Note Date & ZdjnKeaeVxszclmm28-07-8154 Telephone encounter Note* Telephone Encounter - Edmund Torres MD - 11/15/2024 12:44 PM EDT Sent. [facility] HospitalDvjhfnjdjx32-72-3925 Miscellaneous Notes* Telephone Encounter - Edmund Torres MD - 11/15/2024 12:44 PM EDT Sent. documented in this encounterHarry S. [facility] Memorial Veterans' HospitalXuiizzjelk34-27-1668 Telephone encounter Note* Telephone Encounter - Sunita Mckinnon MA - 09/10/2024 10:23 AM EDT [address] [address]. [place], [place]. I need to have my niacin filled and my tying all3 and I am going to make my daughter is going to make an appointment for me. It is just she can drive it right now. She had surgery, so I will schedule an appointment as soon as she can drive. Thank you. [facility] HospitalPuwvtvdstw00-24-3040 Miscellaneous Notes* Telephone Encounter - Sunita Mckinnon MA - 09/10/2024 10:23 AM EDT [address] [address]. [place], [place]. I need to have my niacin filled and my tying all3 and I am going to make my daughter is going to make an appointment for me. It is just she can drive it right now. She had surgery, so I will schedule an appointment as soon as she can drive. Thank you. documented in this [facility]06-24-2025 Telephone encounter Note* Telephone Encounter - Radha Conroy LPN - 07/30/2024 10:51 AM EDT Pt son is going to call office and set her up for a televisit [facility] HospitalLvwttgfcny59-70-0948 Miscellaneous Notes* Telephone Encounter - Radha Conroy LPN - 07/30/2024 10:51 AM EDT Pt son is going to call office and set her up for a televisit documented in this [facility]04-25-2025 Telephone encounter Note* Telephone Encounter - LATHA Sainz - 05/31/2024 12:39 PM EDT OARRS reviewed, Rx sent into patient's pharmacy. [facility] HospitalIhhtksxnzu90-92-3644 Miscellaneous Notes* Telephone Encounter - LATHA Sainz - 05/31/2024 12:39 PM EDT OARRS reviewed, Rx sent into patient's pharmacy. documented in this [facility]02-25-2025 Telephone encounter Note* Telephone Encounter - LATHA Sainz - 04/02/2024 5:02 PM EST OARRS reviewed, Rx sent into patient's pharmacy. [facility] Awuasnouqv01-46-1284 Miscellaneous Notes* Telephone Encounter - LATHA Sainz - 04/02/2024 5:02 PM EST OARRS reviewed, Rx sent into patient's pharmacy. documented in this encounterHarry S. Truman Memorial Veterans' HospitalZysjindxbd69-69-6989 History of Present illness Narrative* Edmund Torres [...] Do you have a medical power of [place] attorney?: Yes Who is your medical power of united states attorney?: daughter Objective : BP 136/82 Pulse 68 [...] a living will and durable power of united states attorney for healthcare. We discussed telling meyer people about their advance directives such as close family members, and requested a copy to scan into the patient's EHR. An advance directive packet was offered to the patient. Assessment/Plan Diagnoses and all orders for this visit: Routine general [facility] at [facility] - Reviewed all relevant preventative [...] ulcer and inflammation of left lower extremity ([facility]) Follow up in about 3 months (around 06/08/2024) for Routine F/U. No orders of the defined types were placed in this encounter. Electronically signed by Edmund Torres MD on March 11, 2024 documented in this encounterHarry S. 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 documented in this encounterHarry S. Truman Memorial Veterans' HospitalXtqigajasq13-18-5079 NoteBELLEVUE [facility] Note Chief Complaint: [...] , Rfl: ergocalciferol (Vitamin D-2) 1.25 MG (58564 Units) capsule, Take 5,000 Units by mouth [...] beta-mohsen and an a (more content not included)...[facility]02-05-2024 Telephone encounter Note* Telephone Encounter - LATHA Sainz - 03/13/2023 7:57 AM EST sent [facility] HospitalCpgikocvfz64-97-7427 Miscellaneous Notes* Telephone Encounter - LATHA Sainz - 03/13/2023 7:57 AM EST sent documented in this encounterHarry S. Truman [facility] Veterans' HospitalBeikegeskm13-39-6659 NoteBELLEV CLINIC Cardiology Clinic Note Chief Complaint: [...] medical history of CHF (congestive heart failure) ([facility]), Coronary artery disease, Hyperlipidemia, and [...] , Rfl: ergocalciferol (Vitamin D-2) 1.25 MG (15348 Units) capsule, Take 5,000 Units by mouth [...] 2, moderate diastolic dysfunctio (more content not included)...[facility]Evaluation [facility]* Diagnosis Benign essential hypertension (CMS/HCC) Essential hypertension, benign documented in this encounter [facility] HealthcareEvaluation note* Diagnosis Chronic diastolic heart failure (CMS/HCC)- Primary Chronic diastolic heart failure Benign essential hypertension (CMS/HCC) Essential hypertension, benign Flu vaccine need 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) Stasis dermatitis [...] lower extremity (CMS/HCC) documented in this encounter [facility] HealthcareEvaluation note* Diagnosis Routine general medical [...] lower extremity (CMS/HCC) documented in this encounter [facility] HealthcareEvaluation note* Diagnosis Spinal stenosis at [...] section and content) DATE CREATED AUTHOR 08/02/2017 [facility] DATE CREATED AUTHOR AUTHOR'S ORGANIZ ATION 08/02/2017 [facility] DATE CREATED AUTHOR AUTHOR'S ORGANIZ ATION 06/02/2021 [facility] [employer] DATE CREATED AUTHOR AUTHOR'S ORGANIZ ATION 09/11/2021 [facility] DATE CREATED AUTHOR AUTHOR'S ORGANIZ ATION 12/12/2023 [facility] DATE CREATED AUTHOR AUTHOR'S ORGANIZ ATION 12/19/2023 [facility] DATE CREATED AUTHOR AUTHOR'S ORGANIZ ATION 10/20/2024 [facility] EPIC Reason for Visit (unrecogniz ed section and content) ReasonCommentsMed RefillReasonCommentsFollow-upPain medHypertensionMed Refill Cymbalta--[facility] fremontFallReasonCommentsMedicare Annual Wellness Visit SubsequentReasonOnset DateCommentsMed Xqvlfy1604/02/2024ReasonOnset DateComments Med Smvmvd1005/31/2024ReasonOnset DateCommentsMed Kncciv4307/30/2024ReasonOnset Date CommentsMed Okjhdz4209/10/2024ReasonOnset DateCommentsMed Yfduyf8811/14/2024 Care Teams (unrecognized sec tion and content) Team MemberRelationshipSpecialtyStart DateEnd Date Edmund Torres MD [address] [place] [address] PCP - [facility]06/30/22 Edmund Torres MD [address] [place] [address] PCP - [facility]06/14/22Team MemberRelationshipSpecialtyStart Date End Date Edmund Torres MD [address] [place] [address] [facility] - [facility]06/30/22 Edmund Torres MD [address] [place] [address] PCP - [facility]06/14/22Team MemberRelationshipSpecialtyStart Date End Date Edmund Torres MD [address] [place] [address] PCP - [facility]06/30/22 Edmund Torres MD [address] [place] [address] PCP - [facility]06/14/22Team MemberRelationshipSpecialtyStart Date End Date Edmund Torres MD [address] [place] [address] PCP - [facility]06/30/22 Edmund Torres MD [address] [place] [address] [facility]06/14/22Team MemberRelationshipSpecialtyStart Date End Date Edmund Torres MD [address] [place] [address] PCP - [facility]06/30/22 Edmund Torres MD [address] [place] [address] [facility] - [facility]06/14/22Team MemberRelationshipSpecialtyStart Date End Date Edmund Torres MD [address] [place] [address] PCP - [facility]06/30/22 Edmund Torres MD [address] [place] [address] PCP - [facility]06/14/22Team MemberRelationshipSpecialtyStart Date End Date Edmund Torres MD [address] [place] [address] PCP - [facility]06/30/22 Edmund Torres MD [address] [place] [address] PCP - [facility]06/14/22Team MemberRelationshipSpecialtyStart Date End Date Edmund Torres MD [address] [place] [address] PCP - [facility]06/30/22 Edmund Torres MD [address] [place] [address] PCP - GeneralInternal Medicine06/14/22Team MemberRelationshipSpecialtyStart Date End Date Edmund Torres MD [address] [place] [address] PCP - [facility]06/30/22 Edmund Torres MD [address] [place] [address] PCP - GeneralInternal Medicine06/14/22Team MemberRelationshipSpecialtyStart Date End Date Edmund Torres MD [address] [place] [address] PCP - [facility]06/30/22 Edmund Torres MD [address] [place] [address] PCP - GeneralInternal Medicine06/14/22 Concha Whitley LPN [address] [place] [address] 09/16/24Team MemberRelationshipSpecialtyStart DateEnd Date Edmund Torres MD [address] [place] [address] PCP - [facility]06/30/22 Edmund Torres MD [address] [place] [address] PCP - GeneralInternal Medicine06/14/22 Concha Whitley LPN [address] [place] [address] 09/16/24Team MemberRelationshipSpecialtyStart DateEnd Date Edmund Torres MD [address] [facility] [address] [place] [address] PCP - [facility]06/30/22 Edmund Torres MD [address] [facility] [address] [place] [address] PCP - GeneralInternal Medicine06/14/22 Concha Whitley LPN [address] [facility] [place] [address] 09/16/24 FOR RECORDS PERTAINING TO PATIENTS WHO [...] BE BASED ON THE PRIMARY CLINICAL RECORDS. [employer] [facility]. provides no warranty or guarantee of the accuracy or completeness of information in this document.
--- NOTE | 2025-01-10 08:51 | CA_ITS ---
Patient Name: JAVI LEONARDO MR#: [id number] : 1935 Exam Date: 01/10/2025 Ordering Doctor: DR KESHA PINZON M.D. ECHOCARDIOGRAM REPORT PROCEDURE: CA ECHO DOPPLER COMPLETE INDICATIONS: MELENDEZ COMPARISON: None. DESCRIPTION: COMPLETE ECHOCARDIOGRAM Real-time transthoracic echocardiography with 2D, M-mode, spectral and color flow Doppler performed. QUALITY: Technical quality was good. LEFT VENTRICLE: Normal chamber size. Thickened septal wall. Global left ventricular systolic function is normal. Visual estimation of left ventricular ejection fraction is 55-60%. Myocardial strain is normal at -17.5%. LV EF: DIASTOLIC: Grade II diastolic dysfunction. Doppler indices indicate elevated left atrial filling pressures. ATRIAL SEPTUM: LEFT ATRIUM: Severe dilatation. RIGHT ATRIUM: Moderate dilatation. RIGHT VENTRICLE: Moderate dilatation. Mildly reduced right ventricular systolic function. TRICUSPID VALVE: Normal mobility and thickness. No stenosis with mild to moderate regurgitation. Severe pulmonary hypertension. The RVSP measures 63 mmHg. MITRAL VALVE: Mildly thickened with normal mobility. No significant mitral valve stenosis. There is no mitral annular calcification. Mild to moderate mitral regurgitation. Mean gradient 3.5 mmHg at heart rate of 57 bpm. AORTIC VALVE: Normal trileaflet appearance. Mildly calcified aortic valve. Mildly diminished mobility. Doppler velocity suggest mild aortic valve stenosis. DVI 0.42, SHILA 1.8 cm2, Vmax 2.1m/s, peak/mean gradients 17/10 mmHg. Trivial aortic regurgitation. AORTIC ROOT: Normal diameter and appearance. The aortic root measures 3.4 cm. The ascending aorta is normal in size measuring 3.1 cm. PULMONIC VALVE: Normal thickness and mobility. No stenosis. Trivial regurgitation. PERICARDIUM: No evidence of pericardial effusion. IVC: Collapses with inspiration. The IVC is dilated measuring 2.4 cm. PLEURA: CONCLUSION: 1. Normal left ventricular size and systolic function. Estimated LVEF is 55 to 60%. 2. Moderately dilated right ventricle with mildly reduced systolic function. 3. Moderate to severe biatrial dilatation. 4. Grade 2 diastolic dysfunction. Doppler indices indicate elevated left atrial filling pressures. 5. Mild aortic valve stenosis. 6. Mild to moderate mitral and tricuspid regurgitation. 7. Severely elevated right-sided pressures. RVSP is 63 mmHg. Adult Echocardiography Procedure Report Left Ventricle LVEDD (3.7 - 5.6 cm): 4.66 cm LVESD (2.2 - 4.0 cm): 3.22 cm LVIVS thickness (0.6 - 1.2 cm): 1.57 cm LVPW thickness (0.5 - 1.0 cm): 0.99 cm e': 0.08 m/s E - e': 20.97 LVOT Max Gradient: 3.08 mm[Hg] LVOT Area (cm2): 0.88 m/s Peak Velocity (LVOT): 0.88 m/s Mean Velocity (LVOT): 0.60 m/s LVOT Diameter 2.34 cm Left Ventricular Ejection Fraction: 55-60 % Left Atrium LA Volume Index (2D A2C): 64.99 ml/m2 Left Atrium Systolic Dimension: 5.19 cm Mitral Valve MV E to A Ratio: 1.36 Mitral Valve A-Wave Peak Velocity: 1.23 m/s Mitral Valve E-Wave Peak Velocity: 1.68 m/s Right Ventricle RV Internal Diastolic Dimension: 5.03 cm Aorta AO Root Diam: 3.35 cm Ascending Ao Diam: 3.15 cm Aortic Valve AoV Area (Pe[place]): 1.85 cm2, 1.88 cm2 AoV Area (VTI): 1.79 cm2, 1.80 cm2 Peak Velocity(Antegrade Flow): 2.01 m/s, 2.06 m/s Peak Gradient(Antegrade Flow): 16.13 mm[Hg], 17.00 mm[Hg] Mean Velocity(Antegrade Flow): 1.55 m/s, 1.55 m/s Mean Gradient(Antegrade Flow): 10.44 mm[Hg], 10.40 mm[Hg] Velocity Time Integral: 61.38 cm, 61.65 cm Tricuspid Valve Peak Velocity (Regurgitant Flow): 2.73 m/s, 2.84 m/s, 3.48 m/s, 3.70 m/s Pulmonic Valve Mean Gradient: 2.01 mm[Hg], 2.30 mm[Hg] Mean Velocity: 0.66 m/s, 0.72 m/s Peak Velocity: 1.01 m/s Peak Gradient: 4.10 mm[Hg], 4.10 mm[Hg] Right Atrium Right Atrium Systolic Pressure: 110.21 ml, 110.21 ml Dictated by: Dago Webb M.D. on 01/10/2025 at 21:18 Approved by: Dago Webb M.D. on 01/10/2025 at 21:29
== END 2025-01-10 08:42 | disposition home or self-care (01) ==
LOC: CARD 08:42
PROVIDERS: PCP Internal Medicine; Visit Provider Internal Medicine Interventional Cardiology
DX: R06.09 Other forms of dyspnea (principal)
CPT/HCPCS: 93306; 93356